=== PATIENT | male | born 1960 | race Caucasian/White ===

== ENCOUNTER 2023-06-06 21:11 | Inpatient (IN) | payer MEDICARE, OTHER ==
[2023-06-06] MEDS ORDERED: SODIUM CHLORIDE 0.9% 500 ML 500 ML IV ONE (21:24)
--- NOTE | 2023-06-06 21:36 | ED ---
General Adult HPI - General Chief complaint: Recheck/Abnormal Lab/Rx Stated complaint: Generalized Pain Time Seen by Provider: 06/06/23 21:13 Source: EMS Mode of arrival: EMS Limitations: altered mental status - History of Present Illness Initial comments: Sebastien is a 63-year-old gentleman who is brought to the ER today via EMS from senior care in which he lives. Caregivers there noted today that his legs and hands seemed to be cold and mottled which is atypical for him. This prompted them to request to be transferred to the hospital. Patient reports he has pain all over cannot isolate the pain. Denies chest pain. He's not been vomiting. - Related Data Home Medications Medication Instructions Recorded Confirmed Amoxic-Pot Clav 875-125Mg 1 tab PO Q12HR 06/06/23 06/06/23 [Augmentin 875-125] Aspirin EC [Ecotrin Low Dose] 81 mg PO DAILY 06/06/23 06/06/23 Atorvastatin [Lipitor] 40 mg PO HS 06/06/23 06/06/23 Budesonide [Pulmicort] 0.5 mg INHALATION RT-BID 06/06/23 06/06/23 Divalproex ER [Depakote ER] 250 mg PO DAILY 06/06/23 06/06/23 Folic Acid 1 mg PO DAILY 06/06/23 06/06/23 Ipratropium-Albuterol Nebulize 3 ml INHALATION RT-BID 06/06/23 06/06/23 [Duoneb 0.5 mg-3 mg/3 ml Soln] Lactose-Reduced Food [Ensure Plus] 1 can PO TID@0900,1300,2100 06/06/23 06/06/23 Lactulose 20 gm PO BID 06/06/23 06/06/23 Metoprolol Succinate (ER) [Toprol 25 mg PO DAILY 06/06/23 06/06/23 Xl] Midodrine [ProAmatine] 5 mg PO TID@0900,1300,1800 06/06/23 06/06/23 Mirtazapine 7.5 mg PO DAILY@1700 06/06/23 06/06/23 Multivitamins, Thera [Multivitamin 1 tab PO DAILY 06/06/23 06/06/23 (formulary)] Omeprazole [PriLOSEC] 20 mg PO DAILY 06/06/23 06/06/23 Thiamine [Vitamin B-1] 100 mg PO DAILY 06/06/23 06/06/23 Allergies Allergy/AdvReac Type Severity Reaction Status Date / Time No Known Allergies Allergy Verified 06/06/23 22:06 Review of Systems ROS Statement: Those systems with pertinent positive or pertinent negative responses have been documented in the HPI. ROS Other: All systems not noted in ROS Statement are negative. Past Medical History Past Medical History: Memory Impairment, Myocardial Infarction ([place]) General Exam - General Exam Comments Initial Comments: Physical Exam GENERAL: Chronically ill-appearing, appears older than stated age, no acute distress HENT: Normocephalic, Atraumatic. EYES: PERRL, EOMI PULMONARY: Unlabored respirations. 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 ABDOMEN: Non-distended No pulsatile masses SKIN: No rashes or bruising Coloration on the index fingers of the right hand consistent with tobacco abuse : Deferred NEUROLOGIC: Alert and oriented to self MUSCULOSKELETAL: Moving all extremities with no apparent injury Limitations: altered mental status Course Vital Signs 06/06/23 06/06/23 21:14 23:00 Temperature 98.2 F Pulse Rate 116 H 101 H Respiratory 16 18 Rate Blood Pressure 108/69 96/65 O2 Sat by Pulse 99 95 Oximetry EKG Findings - EKG Comments: EKG Findings:: EKG interpreted by me, EKG obtained at 2143 due to tachycardia EKG with a rate of 111 rhythm is sinus tachycardia, normal axis, normal intervals, TN 1:15 QRS 84 QTC 398 there are no acute ST elevations or depressions or evidence of acute ischemia or infarction. Medical Decision Making - Medical Decision Making Was pt. sent in by a medical professional or institution (, PA, LABORER/GRADE CHECK, urgent care, hospital, or senior care...) When possible be specific @ -Yes from long-term care facility Did you speak to anyone other than the patient for history (EMS, parent, family, police, friend...)? What history was obtained from this source @ -EMS Did you review nursing and triage notes (agree or disagree)? Why? @ -I reviewed and agree with nursing and triage notes Were old charts reviewed (outside hosp., previous admission, EMS record, old EKG, old radiological studies, urgent care reports/EKG's, senior care records)? Report findings @ -No old charts were reviewed Differential Diagnosis (chest pain, altered mental status, abdominal pain women, abdominal pain men, vaginal bleeding, weakness, fever, dyspnea, syncope, headache, dizziness, GI bleed, back pain, seizure, CVA, palpatations, mental health, musculoskeletal)? @ -Differential Altered Mental Status: Hypoglycemia, DKA, hypercapnia, ETOH, overdose, CO poisoning, trauma, myxedema coma, HTN encephalopathy, infection, encephalitis, psychosis, intercranial hemorrhage, hepatic encephalopathy, meningitis, CVA, this is not meant to be an all-inclusive list EKG interpreted by me (3pts min.). @ -As above X-rays interpreted by me (1pt min.). @ -No acute process CT interpreted by me (1pt min.). @ -None done U/S interpreted by me (1pt. min.). @ -None done What testing was considered but not performed or refused? (CT, X-rays, U/S, l abs)? Why? @ -None What meds were considered but not given or refused? Why? @ -None Did you discuss the management of the patient with other professionals (professionals i.e. , PA, LABORER/GRADE CHECK, lab, RT, psych nurse, social media intern, application architect, teacher, event security officer, catalytic case operator)? Give summary @ -No Was smoking cessation discussed for >3mins.? @ -No Was critical care preformed (if so, how long)? @ -No Were there social determinants of health that impacted care today? How? (Homelessness, low income, unemployed, alcoholism, drug addiction, transportation, low edu. Level, literacy, decrease access to med. care, halfway, rehab)? @ -Previous alcoholism Was there de-escalation of care discussed even if they declined (Discuss DNR or withdrawal of care, Hospice)? DNR status @ -No What co-morbidities impacted this encounter? (DM, HTN, Smoking, COPD, CAD, Cancer, CVA, ARF, Chemo, Hep., AIDS, mental health diagnosis, sleep apnea, morbid obesity)? @ -And dementia Was patient admitted / discharged? Hospital course, mention meds given and route, prescriptions, significant lab abnormalities, going to OR and other pertinent info. @ -Admit Patient was seen and evaluated. Patient does appear to have mottled extremities. Septic workup was initiated patient has leukocytosis however no infectious source was identified. Patient is noted to be sleeping comfortably after IV fluids. He did receive a dose of Rocephin. We will place the patient in observation for repeat labs in the morning to ensure that his leukocytosis is resolving he has no signs of worsening indolent infection Undiagnosed new problem with uncertain prognosis? @ -No Drug Therapy requiring intensive monitoring for toxicity (Heparin, Nitro, Insulin, Cardizem)? @ -No Were any procedures done? @ -No Diagnosis/symptom? @ -Dehydration, leukocytosis Acute, or Chronic, or Acute on Chronic? @ -default Uncomplicated (without systemic symptoms) or Complicated (systemic symptoms)? @ -default Side effects of treatment? @ -No Exacerbation, Progression, or Severe Exacerbation? @ -No Poses a threat to life or bodily function? How? (Chest pain, [place], [place], pneumonia, PE, COPD, DKA, ARF, appy, cholecystitis, CVA, Diverticulitis, Homicidal, Suicidal, threat to staff... and all critical care pts) @ -No - Lab Data Result diagrams: 06/06/23 21:52 06/06/23 21:52 Lab Results 06/06/23 06/06/23 06/06/23 Range/Units 21:52 21:52 21:52 WBC 19.9 H (3.8-10.6) k/uL RBC 4.35 (4.30-5.90) m/uL Hgb 12.9 L (13.0-17.5) gm/dL Hct 39.9 (39.0-53.0) % MCV 91.7 (80.0-100.0) fL MCH 29.6 (25.0-35.0) pg MCHC 32.3 (31.0-37.0) g/dL RDW 15.2 (11.5-15.5) % Plt Count 317 (150-450) k/uL MPV 7.2 Neutrophils % 89 % Lymphocytes % 6 % Monocytes % 3 % Eosinophils % 2 % Basophils % 0 % Neutrophils # 17.7 H (1.3-7.7) k/uL Lymphocytes # 1.1 (1.0-4.8) k/uL Monocytes # 0.6 (0-1.0) k/uL Eosinophils # 0.3 (0-0.7) k/uL Basophils # 0.0 (0-0.2) k/uL PT (10.0-12.5) sec INR (<1.2) APTT (22.0-30.0) sec Sodium 130 L (137-145) mmol/L Potassium 4.1 (3.5-5.1) mmol/L Chloride 98 (98-107) mmol/L Carbon Dioxide 21 L (22-30) mmol/L Anion Gap 11 mmol/L BUN 19 (9-20) mg/dL Creatinine 0.57 L (0.66-1.25) mg/dL Est GFR (CKD-EPI)AfAm >90 (>60 ml/min/1.73 sqM) Est GFR (CKD-EPI)NonAf >90 (>60 ml/min/1.73 sqM) Glucose 107 H (74-99) mg/dL Lactic Ac Sepsis Rflx Plasma Lactic Acid Shane (0.7-2.0) mmol/L Calcium 7.8 L (8.4-10.2) mg/dL Total Bilirubin 0.4 (0.2-1.3) mg/dL AST 48 (17-59) U/L ALT 16 (4-49) U/L Alkaline Phosphatase 223 H (38-126) U/L Creatine Kinase 110 (55-170) U/L Troponin I <0.012 (0.000-0.034) ng/mL Total Protein 5.3 L (6.3-8.2) g/dL Albumin 2.5 L (3.5-5.0) g/dL Urine Color Urine Appearance (Clear) Urine pH (5.0-8.0) Ur Specific Spencer (1.001-1.035) Urine Protein (Negative) Urine Glucose (UA) (Negative) Urine Ketones (Negative) Urine Blood (Negative) Urine Nitrite (Negative) Urine Bilirubin (Negative) Urine Urobilinogen (<2.0) mg/dL Ur Leukocyte Esterase (Negative) Urine RBC (0-5) /hpf Urine WBC (0-5) /hpf Ur Squamous Epith Cells (0-4) /hpf Hyaline Casts (0-2) /lpf Urine Mucus (None) /hpf Urine Opiates Screen (NotDetected) Ur Oxycodone Screen (NotDetected) Urine Methadone Screen (NotDetected) Ur Propoxyphene Screen (NotDetected) Ur Barbiturates Screen (NotDetected) U Tricyclic Antidepress (NotDetected) Ur Phencyclidine Scrn (NotDetected) Ur Amphetamines Screen (NotDetected) U Methamphetamines Scrn (NotDetected) U Benzodiazepines Scrn (NotDetected) Urine Cocaine Screen (NotDetected) U Marijuana (THC) Screen (NotDetected) 06/06/23 06/06/23 06/06/23 Range/Units 21:52 22:42 23:40 WBC (3.8-10.6) k/uL RBC (4.30-5.90) m/uL Hgb (13.0-17.5) gm/dL Hct (39.0-53.0) % MCV (80.0-100.0) fL MCH (25.0-35.0) pg MCHC (31.0-37.0) g/dL RDW (11.5-15.5) % Plt Count (150-450) k/uL MPV Neutrophils % % Lymphocytes % % Monocytes % % Eosinophils % % Basophils % % Neutrophils # (1.3-7.7) k/uL Lymphocytes # (1.0-4.8) k/uL Monocytes # (0-1.0) k/uL Eosinophils # (0-0.7) k/uL Basophils # (0-0.2) k/uL PT 17.9 H (10.0-12.5) sec INR 1.8 H (<1.2) APTT 30.3 H (22.0-30.0) sec Sodium (137-145) mmol/L Potassium (3.5-5.1) mmol/L Chloride (98-107) mmol/L Carbon Dioxide (22-30) mmol/L Anion Gap mmol/L BUN (9-20) mg/dL Creatinine (0.66-1.25) mg/dL Est GFR (CKD-EPI)AfAm (>60 ml/min/1.73 sqM) Est GFR (CKD-EPI)NonAf (>60 ml/min/1.73 sqM) Glucose (74-99) mg/dL Lactic Ac Sepsis Rflx Y Plasma Lactic Acid Shane 2.4 H* (0.7-2.0) mmol/L Calcium (8.4-10.2) mg/dL Total Bilirubin (0.2-1.3) mg/dL AST (17-59) U/L ALT (4-49) U/L Alkaline Phosphatase (38-126) U/L Creatine Kinase (55-170) U/L Troponin I (0.000-0.034) ng/mL Total Protein (6.3-8.2) g/dL Albumin (3.5-5.0) g/dL Urine Color Urine Appearance (Clear) Urine pH (5.0-8.0) Ur Specific Spencer (1.001-1.035) Urine Protein (Negative) Urine Glucose (UA) (Negative) Urine Ketones (Negative) Urine Blood (Negative) Urine Nitrite (Negative) Urine Bilirubin (Negative) Urine Urobilinogen (<2.0) mg/dL Ur Leukocyte Esterase (Negative) Urine RBC (0-5) /hpf Urine WBC (0-5) /hpf Ur Squamous Epith Cells (0-4) /hpf Hyaline Casts (0-2) /lpf Urine Mucus (None) /hpf Urine Opiates Screen (NotDetected) Ur Oxycodone Screen (NotDetected) Urine Methadone Screen (NotDetected) Ur Propoxyphene Screen (NotDetected) Ur Barbiturates Screen (NotDetected) U Tricyclic Antidepress (NotDetected) Ur Phencyclidine Scrn (NotDetected) Ur Amphetamines Screen (NotDetected) U Methamphetamines Scrn (NotDetected) U Benzodiazepines Scrn (NotDetected) Urine Cocaine Screen (NotDetected) U Marijuana (THC) Screen (NotDetected) 06/07/23 06/07/23 Range/Units 02:06 02:06 WBC (3.8-10.6) k/uL RBC (4.30-5.90) m/uL Hgb (13.0-17.5) gm/dL Hct (39.0-53.0) % MCV (80.0-100.0) fL MCH (25.0-35.0) pg MCHC (31.0-37.0) g/dL RDW (11.5-15.5) % Plt Count (150-450) k/uL MPV Neutrophils % % Lymphocytes % % Monocytes % % Eosinophils % % Basophils % % Neutrophils # (1.3-7.7) k/uL Lymphocytes # (1.0-4.8) k/uL Monocytes # (0-1.0) k/uL Eosinophils # (0-0.7) k/uL Basophils # (0-0.2) k/uL PT (10.0-12.5) sec INR (<1.2) APTT (22.0-30.0) sec Sodium (137-145) mmol/L Potassium (3.5-5.1) mmol/L Chloride (98-107) mmol/L Carbon Dioxide (22-30) mmol/L Anion Gap mmol/L BUN (9-20) mg/dL Creatinine (0.66-1.25) mg/dL Est GFR (CKD-EPI)AfAm (>60 ml/min/1.73 sqM) Est GFR (CKD-EPI)NonAf (>60 ml/min/1.73 sqM) Glucose (74-99) mg/dL Lactic Ac Sepsis Rflx Plasma Lactic Acid Shane (0.7-2.0) mmol/L Calcium (8.4-10.2) mg/dL Total Bilirubin (0.2-1.3) mg/dL AST (17-59) U/L ALT (4-49) U/L Alkaline Phosphatase (38-126) U/L Creatine Kinase (55-170) U/L Troponin I (0.000-0.034) ng/mL Total Protein (6.3-8.2) g/dL Albumin (3.5-5.0) g/dL Urine Color Light Red Urine Appearance Clear (Clear) Urine pH 6.0 (5.0-8.0) Ur Specific Spencer 1.025 (1.001-1.035) Urine Protein Trace H (Negative) Urine Glucose (UA) Negative (Negative) Urine Ketones Trace H (Negative) Urine Blood Negative (Negative) Urine Nitrite Negative (Negative) Urine Bilirubin Negative (Negative) Urine Urobilinogen 2.0 (<2.0) mg/dL Ur Leukocyte Esterase Trace H (Negative) Urine RBC 1 (0-5) /hpf Urine WBC 2 (0-5) /hpf Ur Squamous Epith Cells <1 (0-4) /hpf Hyaline Casts 50 H (0-2) /lpf Urine Mucus Occasional H (None) /hpf Urine Opiates Screen Not Detected (NotDetected) Ur Oxycodone Screen Not Detected (NotDetected) Urine Methadone Screen Not Detected (NotDetected) Ur Propoxyphene Screen Not Detected (NotDetected) Ur Barbiturates Screen Not Detected (NotDetected) U Tricyclic Antidepress Not Detected (NotDetected) Ur Phencyclidine Scrn Not Detected (NotDetected) Ur Amphetamines Screen Not Detected (NotDetected) U Methamphetamines Scrn Not Detected (NotDetected) U Benzodiazepines Scrn Not Detected (NotDetected) Urine Cocaine Screen Not Detected (NotDetected) U Marijuana (THC) Screen Not Detected (NotDetected) Disposition Clinical Impression: Leukocytosis, Dehydration Disposition: ADMITTED IP TO THIS [facility] Condition: Poor Referrals: Sandra Graves MD [Primary Care Provider] - 1-2 days
[2023-06-06 22:17] LABS: Basophils % (A) 0 %; Eosinophils # (A) 0.3 k/uL (0-0.7); Eosinophils % (A) 2 %; HCT 39.9 % (39.0-53.0); HGB 12.9 gm/dL (13.0-17.5); Lymphocytes # (A) 1.1 k/uL (1.0-4.8); Lymphocytes % (A) 6 %; MCH 29.6 pg (25.0-35.0); MCHC 32.3 g/dL (31.0-37.0); MCV 91.7 fL (80.0-100.0); Mean Platelet Volume 7.2; Monocytes # (A) 0.6 k/uL (0-1.0); Monocytes % (A) 3 %; Neutrophils # (A) 17.7 k/uL (1.3-7.7); Neutrophils % (A) 89 %; Platelet Count 317 k/uL (150-450); RBC 4.35 m/uL (4.30-5.90); RDW 15.2 % (11.5-15.5); WBC 19.9 k/uL (3.8-10.6)
[2023-06-06 22:31] LABS: ALT 16 U/L (4-49); AST 48 U/L (17-59); African American GFR (CKD) >90 (>60 ml/min/1.73 sqM); Albumin 2.5 g/dL (3.5-5.0); Alkaline Phosphatase 223 U/L (38-126); Anion Gap 11 mmol/L; Blood Urea Nitrogen 19 mg/dL (9-20); Calcium 7.8 mg/dL (8.4-10.2); Carbon Dioxide 21 mmol/L (22-30); Chloride 98 mmol/L (98-107); Creatine Kinase 110 U/L (55-170); Glucose 107 mg/dL (74-99); Non-African American GFR(CKD) >90 (>60 ml/min/1.73 sqM); Potassium 4.1 mmol/L (3.5-5.1); Sodium 130 mmol/L (137-145); Total Bilirubin 0.4 mg/dL (0.2-1.3); Total Protein 5.3 g/dL (6.3-8.2)
[2023-06-06 23:31] LABS: INR 1.8 (<1.2); Partial Thromboplastin Time 30.3 sec (22.0-30.0); Prothrombin Time 17.9 sec (10.0-12.5)
[2023-06-07] MEDS ORDERED: cefTRIAXone IN SWFI 1,000 MG/10 ML SYRINGE IVP STA (00:05)
[2023-06-07] MEDS: SODIUM CHLORIDE 0.9% 1,000 ML IV SCH ×4 (00:32→22:34)
--- NOTE | 2023-06-07 01:23 | XR ---
EXAM: XR Chest, 2 Views CLINICAL HISTORY: ITS.REASON XR Reason: altered mental status TECHNIQUE: Frontal and lateral views of the chest. COMPARISON: No relevant prior studies available. FINDINGS: Lungs: Mild pulmonary vascular congestion. Pleural space: Unremarkable. No pneumothorax. Heart: Unremarkable. No cardiomegaly. Mediastinum: Unremarkable. Bones/joints: Unremarkable. Vasculature: Calcified aorta. IMPRESSION: Mild pulmonary vascular congestion.
[2023-06-07 02:29] LABS: Appearance,Urine Clear (Clear); Bilirubin,Urine Negative (Negative); Blood,Urine Negative (Negative); Color,Urine Light Red; Glucose,Urine (UA) Negative (Negative); Hyaline Casts,Urine 50 /lpf (0-2); Ketones,Urine Trace (Negative); Leukocyte Esterase,Urine Trace (Negative); Mucus,Urine Occasional /hpf; Nitrite,Urine Negative (Negative); Protein,Urine Trace (Negative); RBC,Urine 1 /hpf (0-5); Specific Gravity,Urine 1.025 (1.001-1.035); Squamous Epithelial Cell,Urine <1 /hpf (0-4); WBC,Urine 2 /hpf (0-5)
[2023-06-07 02:42] LABS: Amphetamine Screen,Urine Not Detected (NotDetected); Barbiturate Screen,Urine Not Detected (NotDetected); Benzodiazepines Screen,Urine Not Detected (NotDetected); Cocaine Screen,Urine Not Detected (NotDetected); Methadone Screen, Urine Not Detected (NotDetected); Opiate Screen,Urine Not Detected (NotDetected); Oxycodone Screen, Urine Not Detected (NotDetected); Phencyclidine Screen,Urine Not Detected (NotDetected); Tricyclic Antidepressant,Urine Not Detected (NotDetected); Urn Cannabinoid Scrn Not Detected (NotDetected)
[2023-06-07] MEDS ORDERED: NALOXONE 0.4 MG/ML 1 ML VIAL IV PRN (03:31)
[2023-06-07 07:48] LABS: Basophils % (A) 0 %; Eosinophils # (A) 0.5 k/uL (0-0.7); Eosinophils % (A) 3 %; HCT 29.3 % (39.0-53.0); Hypochromasia Slight; Lymphocytes # (A) 1.1 k/uL (1.0-4.8); Lymphocytes % (A) 7 %; MCH 29.2 pg (25.0-35.0); MCHC 31.4 g/dL (31.0-37.0); MCV 93.2 fL (80.0-100.0); Mean Platelet Volume 7.6; Monocytes # (A) 1.7 k/uL (0-1.0); Monocytes % (A) 10 %; Neutrophils # (A) 13.6 k/uL (1.3-7.7); Neutrophils % (A) 80 %; Platelet Count 360 k/uL (150-450); RBC 3.14 m/uL (4.30-5.90); RDW 15.2 % (11.5-15.5)
[2023-06-07 07:51] LABS: HGB 9.2 gm/dL (13.0-17.5)
[2023-06-07 07:53] LABS: ALT 14 U/L (4-49); AST 44 U/L (17-59); African American GFR (CKD) >90 (>60 ml/min/1.73 sqM); Albumin 1.9 g/dL (3.5-5.0); Alkaline Phosphatase 134 U/L (38-126); Anion Gap 4 mmol/L; Blood Urea Nitrogen 13 mg/dL (9-20); Calcium 6.9 mg/dL (8.4-10.2); Carbon Dioxide 24 mmol/L (22-30); Chloride 104 mmol/L (98-107); Glucose 87 mg/dL (74-99); Non-African American GFR(CKD) >90 (>60 ml/min/1.73 sqM); Potassium 3.5 mmol/L (3.5-5.1); Sodium 132 mmol/L (137-145); Total Bilirubin 0.4 mg/dL (0.2-1.3); Total Protein 4.4 g/dL (6.3-8.2)
[2023-06-07] MEDS ORDERED: ALBUMIN HUMAN 5% 500 ML in EMPTY BAG 1 BAG IVPB ONE (10:26)
[2023-06-07] MEDS: MIDODRINE 5 MG TAB PO SCH ×2 (12:30→17:14)
[2023-06-07] MEDS ORDERED: NON FORMULARY DRUG (Lactose-Reduced Food [Ensure Plus] 237 ML Ml) PO SCH (13:00)
[2023-06-07] MEDS ORDERED: IOPAMIDOL CONTRAST (ORAL USE) VIAL PO PRN (14:15)
[2023-06-07] MEDS: PIPERACILLIN-TAZOBACTAM 3.375 GM in SODIUM CHLORIDE 0.9% 100 ML IVPB SCH ×2 (15:13→23:00)
[2023-06-07] MEDS: MIRTAZAPINE 15 MG TAB PO SCH (17:14)
--- NOTE | 2023-06-07 18:43 | P.HPIM ---
History of Present Illness H&P Date: 06/07/23 Chief Complaint: Possible sepsis 63-year-old gentleman who is brought to the ER today via EMS from [place] [facility] in [facility] lives. Caregivers there noted today that his legs and hands seemed to be cold and mottled which is atypical for him. This prompted them to request to be transferred to the hospital. Patient reports he has pain all over cannot isolate the pain. Denies chest pain. He's not been vomiting. Septic workup was initiated patient has leukocytosis however no infectious source was identified. Patient is noted to be sleeping comfortably after IV fluids. He did receive a dose of Rocephin. We will place the patient in observation for repeat labs in the morning to ensure that his leukocytosis is resolving and ID evaluation Blood work completed in ED reveals a daily basis of 19.9, hemoglobin of 12.8 and platelet count of 317, sodium 1:30, potassium 4.1, BUN/creatinine of 19/0.57 and blood glucose of 107, lactic acid elevated at 2.4 Review of Systems REVIEW OF SYSTEMS: CONSTITUTIONAL: No fever, no malaise, no fatigue. HEENT: No recent visual problems or hearing problems. Denied any sore throat. CARDIOVASCULAR: No chest pain, orthopnea, PND, no palpitations, no syncope. PULMONARY: No shortness of breath, no cough, no hemoptysis. GASTROINTESTINAL: No diarrhea, no nausea, no vomiting, no abdominal pain. NEUROLOGICAL: No headaches, no weakness, no numbness. HEMATOLOGICAL: Denies any bleeding or petechiae. GENITOURINARY: Denies any burning micturition, frequency, or urgency. MUSCULOSKELETAL/RHEUMATOLOGICAL: Denies any joint pain, swelling, or any muscle pain. ENDOCRINE: Denies any polyuria or polydipsia. The rest of the 14-point review of systems is negative. Past Medical History Past Medical History: Memory Impairment, Myocardial Infarction ([place]) Medications and Allergies Home Medications Medication Instructions Recorded Confirmed Type Amoxic-Pot Clav 875-125Mg 1 tab PO Q12HR 06/06/23 06/06/23 History [Augmentin 875-125] Aspirin EC [Ecotrin Low Dose] 81 mg PO DAILY 06/06/23 06/06/23 History Atorvastatin [Lipitor] 40 mg PO HS 06/06/23 06/06/23 History Budesonide [Pulmicort] 0.5 mg INHALATION RT-BID 06/06/23 06/06/23 History Divalproex ER [Depakote ER] 250 mg PO DAILY 06/06/23 06/06/23 History Folic Acid 1 mg PO DAILY 06/06/23 06/06/23 History Ipratropium-Albuterol Nebulize 3 ml INHALATION RT-BID 06/06/23 06/06/23 History [Duoneb 0.5 mg-3 mg/3 ml Soln] Lactose-Reduced Food [Ensure Plus] 1 can PO TID@0900,1300,2100 06/06/23 06/06/23 History Lactulose 20 gm PO BID 06/06/23 06/06/23 History Metoprolol Succinate (ER) [Toprol 25 mg PO DAILY 06/06/23 06/06/23 History Xl] Midodrine [ProAmatine] 5 mg PO TID@0900,1300,1800 06/06/23 06/06/23 History Mirtazapine 7.5 mg PO DAILY@1700 06/06/23 06/06/23 History Multivitamins, Thera [Multivitamin 1 tab PO DAILY 06/06/23 06/06/23 History (formulary)] Omeprazole [PriLOSEC] 20 mg PO DAILY 06/06/23 06/06/23 History Thiamine [Vitamin B-1] 100 mg PO DAILY 06/06/23 06/06/23 History Allergies Allergy/AdvReac Type Severity Reaction Status Date / Time No Known Allergies Allergy Verified 06/06/23 22:06 Physical Exam Vitals: Vital Signs Temp Pulse Resp BP Pulse Ox 06/07/23 09:48 98 18 103/57 96 06/07/23 08:25 97.0 F L 98 18 99/66 99 06/07/23 07:20 99 18 107/70 06/07/23 03:00 96 20 96/65 95 06/06/23 23:00 101 H 18 96/65 95 06/06/23 21:14 98.2 F 116 H 16 108/69 99 Intake and Output 06/06/23 06/07/23 06/07/23 22:59 06:59 14:59 Other: Weight 40.823 kg PHYSICAL EXAMINATION: GENERAL: The patient is alert and oriented x3, not in any acute distress. Well developed, well nourished. HEENT: Pupils are round and equally reacting to light. EOMI. No scleral icterus. No conjunctival pallor. Normocephalic, atraumatic. No pharyngeal erythema. No thyromegaly. CARDIOVASCULAR: S1 and S2 present. No murmurs, rubs, or gallops. PULMONARY: Chest is clear to auscultation, no wheezing or crackles. ABDOMEN: Soft, nontender, nondistended, normoactive bowel sounds. No palpable o rganomegaly. MUSCULOSKELETAL: No joint swelling or deformity. EXTREMITIES: No cyanosis, clubbing, or pedal edema. NEUROLOGICAL: Gross neurological examination did not reveal any focal deficits. SKIN: No rashes. Results CBC & Chem 7: 06/07/23 07:20 06/07/23 07:20 Labs: Abnormal Lab Results - Last 24 Hours (Table) 06/06/23 06/06/23 06/06/23 Range/Units 21:52 21:52 21:52 WBC 19.9 H (3.8-10.6) k/uL RBC (4.30-5.90) m/uL Hgb 12.9 L (13.0-17.5) gm/dL Hct (39.0-53.0) % Neutrophils # 17.7 H (1.3-7.7) k/uL Monocytes # (0-1.0) k/uL PT (10.0-12.5) sec INR (<1.2) APTT (22.0-30.0) sec Sodium 130 L (137-145) mmol/L Carbon Dioxide 21 L (22-30) mmol/L Creatinine 0.57 L (0.66-1.25) mg/dL Glucose 107 H (74-99) mg/dL Plasma Lactic Acid Shane 2.4 H* (0.7-2.0) mmol/L Calcium 7.8 L (8.4-10.2) mg/dL Alkaline Phosphatase 223 H (38-126) U/L Total Protein 5.3 L (6.3-8.2) g/dL Albumin 2.5 L (3.5-5.0) g/dL Urine Protein (Negative) Urine Ketones (Negative) Ur Leukocyte Esterase (Negative) Hyaline Casts (0-2) /lpf Urine Mucus (None) /hpf 10/14/23 10/15/23 10/15/23 Range/Units 22:42 02:06 07:20 WBC 17.0 H (3.8-10.6) k/uL RBC 3.14 L (4.30-5.90) m/uL Hgb 9.2 L D (13.0-17.5) gm/dL Hct 29.3 L (39.0-53.0) % Neutrophils # 13.6 H (1.3-7.7) k/uL Monocytes # 1.7 H (0-1.0) k/uL PT 17.9 H (10.0-12.5) sec INR 1.8 H (<1.2) APTT 30.3 H (22.0-30.0) sec Sodium (137-145) mmol/L Carbon Dioxide (22-30) mmol/L Creatinine (0.66-1.25) mg/dL Glucose (74-99) mg/dL Plasma Lactic Acid Shane (0.7-2.0) mmol/L Calcium (8.4-10.2) mg/dL Alkaline Phosphatase (38-126) U/L Total Protein (6.3-8.2) g/dL Albumin (3.5-5.0) g/dL Urine Protein Trace H (Negative) Urine Ketones Trace H (Negative) Ur Leukocyte Esterase Trace H (Negative) Hyaline Casts 50 H (0-2) /lpf Urine Mucus Occasional H (None) /hpf 06/07/23 Range/Units 07:20 WBC (3.8-10.6) k/uL RBC (4.30-5.90) m/uL Hgb (13.0-17.5) gm/dL Hct (39.0-53.0) % Neutrophils # (1.3-7.7) k/uL Monocytes # (0-1.0) k/uL PT (10.0-12.5) sec INR (<1.2) APTT (22.0-30.0) sec Sodium 132 L (137-145) mmol/L Carbon Dioxide (22-30) mmol/L Creatinine 0.30 L (0.66-1.25) mg/dL Glucose (74-99) mg/dL Plasma Lactic Acid Shane (0.7-2.0) mmol/L Calcium 6.9 L (8.4-10.2) mg/dL Alkaline Phosphatase 134 H (38-126) U/L Total Protein 4.4 L (6.3-8.2) g/dL Albumin 1.9 L (3.5-5.0) g/dL Urine Protein (Negative) Urine Ketones (Negative) Ur Leukocyte Esterase (Negative) Hyaline Casts (0-2) /lpf Urine Mucus (None) /hpf Assessment and Plan Assessment: 1. Leukocytosis with elevated lactic acid level/mottling both lower extremities - White blood count is elevated at 19.9 with lactic acid 2.4; no skin mottling was appreciated in ED - Patient has been placed on IV Rocephin for indeterminate source of infection - We will monitor CBC, CRP and pro-calcitonin ID is consulted 2. Hyponatremia; IV fluid hydration with normal saline at a rate of 100 mL an hour; we will monitor electrolytes closely and supplement as needed 3. Hyperlipidemia; Lipitor 40 mg by mouth daily at bedtime 4. Hypertension; metoprolol 25 mg daily 5. COPD/asthma; Not in exacerbation; continue with home inhaler therapy DVT prophylaxis; SCDs; patient has an INR of 1.6 CODE STATUS; Full code
--- NOTE | 2023-06-07 19:05 | P.CONS ---
History of Present Illness - Reason for Consult Consult date: 06/07/23 - History of Present Illness Patient is a 63-year-old male with a past medical history significant for [place] and memory impairment patient is a local [facility] resident patient has been sent to the ER as the patient was noticed to be cold and mostly at which is atypical for him patient complaining of pain all over on presentation to the hospital patient was afebrile and no fever has been noted subsequently patient did have white count of 19.9 with a left shift creatinine 0.57 lactic acid was 2.4 remains in the normal urine has been negative urine drug screen was negative patient did have a chest x-ray mild pulmonary vascular congestion patient was admitted to hospital infectious was consulted regarding elevated white count patient is currently complaining of cramps to the lower abdominal area patient did have some nausea but no vomiting denies any diarrhea or constipation denies any chest pain shortness of breath or cough Past Medical History Past Medical History: Memory Impairment, Myocardial Infarction ([place]) Medications and Allergies Home Medications Medication Instructions Recorded Confirmed Type Amoxic-Pot Clav 875-125Mg 1 tab PO Q12HR 06/06/23 06/06/23 History [Augmentin 875-125] Aspirin EC [Ecotrin Low Dose] 81 mg PO DAILY 06/06/23 06/06/23 History Atorvastatin [Lipitor] 40 mg PO HS 06/06/23 06/06/23 History Budesonide [Pulmicort] 0.5 mg INHALATION RT-BID 06/06/23 06/06/23 History Divalproex ER [Depakote ER] 250 mg PO DAILY 06/06/23 06/06/23 History Folic Acid 1 mg PO DAILY 06/06/23 06/06/23 History Ipratropium-Albuterol Nebulize 3 ml INHALATION RT-BID 06/06/23 06/06/23 History [Duoneb 0.5 mg-3 mg/3 ml Soln] Lactose-Reduced Food [Ensure Plus] 1 can PO TID@0900,1300,2100 06/06/23 06/06/23 History Lactulose 20 gm PO BID 06/06/23 06/06/23 History Metoprolol Succinate (ER) [Toprol 25 mg PO DAILY 06/06/23 06/06/23 History Xl] Midodrine [ProAmatine] 5 mg PO TID@0900,1300,1800 06/06/23 06/06/23 History Mirtazapine 7.5 mg PO DAILY@1700 06/06/23 06/06/23 History Multivitamins, Thera [Multivitamin 1 tab PO DAILY 06/06/23 06/06/23 History (formulary)] Omeprazole [PriLOSEC] 20 mg PO DAILY 06/06/23 06/06/23 History Thiamine [Vitamin B-1] 100 mg PO DAILY 06/06/23 06/06/23 History Allergies Allergy/AdvReac Type Severity Reaction Status Date / Time No Known Allergies Allergy Verified 06/06/23 22:06 Physical Exam Vitals: Vital Signs Temp Pulse Resp BP Pulse Ox 06/07/23 14:08 109 H 18 130/74 96 06/07/23 13:21 98 18 120/95 97 06/07/23 12:00 99 18 98/59 96 06/07/23 11:00 98 18 98/61 97 06/07/23 09:48 98 18 103/57 96 06/07/23 08:25 97.0 F L 98 18 99/66 99 06/07/23 07:20 99 18 107/70 06/07/23 03:00 96 20 96/65 95 06/06/23 23:00 101 H 18 96/65 95 06/06/23 21:14 98.2 F 116 H 16 108/69 99 Intake and Output 06/06/23 06/07/23 06/07/23 22:59 06:59 14:59 Other: Weight 40.823 kg Results CBC & Chem 7: 06/07/23 07:20 06/07/23 07:20 Labs: Abnormal Lab Results - Last 24 Hours (Table) 06/06/23 06/06/23 06/06/23 Range/Units 21:52 21:52 21:52 WBC 19.9 H (3.8-10.6) k/uL RBC (4.30-5.90) m/uL Hgb 12.9 L (13.0-17.5) gm/dL Hct (39.0-53.0) % Neutrophils # 17.7 H (1.3-7.7) k/uL Monocytes # (0-1.0) k/uL PT (10.0-12.5) sec INR (<1.2) APTT (22.0-30.0) sec Sodium 130 L (137-145) mmol/L Carbon Dioxide 21 L (22-30) mmol/L Creatinine 0.57 L (0.66-1.25) mg/dL Glucose 107 H (74-99) mg/dL Plasma Lactic Acid Shane 2.4 H* (0.7-2.0) mmol/L Calcium 7.8 L (8.4-10.2) mg/dL Alkaline Phosphatase 223 H (38-126) U/L C-Reactive Protein (<1.0) mg/dL Total Protein 5.3 L (6.3-8.2) g/dL Albumin 2.5 L (3.5-5.0) g/dL Urine Protein (Negative) Urine Ketones (Negative) Ur Leukocyte Esterase (Negative) Hyaline Casts (0-2) /lpf Urine Mucus (None) /hpf 06/06/23 06/07/23 06/07/23 Range/Units 22:42 02:06 07:20 WBC 17.0 H (3.8-10.6) k/uL RBC 3.14 L (4.30-5.90) m/uL Hgb 9.2 L D (13.0-17.5) gm/dL Hct 29.3 L (39.0-53.0) % Neutrophils # 13.6 H (1.3-7.7) k/uL Monocytes # 1.7 H (0-1.0) k/uL PT 17.9 H (10.0-12.5) sec INR 1.8 H (<1.2) APTT 30.3 H (22.0-30.0) sec Sodium (137-145) mmol/L Carbon Dioxide (22-30) mmol/L Creatinine (0.66-1.25) mg/dL Glucose (74-99) mg/dL Plasma Lactic Acid Shane (0.7-2.0) mmol/L Calcium (8.4-10.2) mg/dL Alkaline Phosphatase (38-126) U/L C-Reactive Protein (<1.0) mg/dL Total Protein (6.3-8.2) g/dL Albumin (3.5-5.0) g/dL Urine Protein Trace H (Negative) Urine Ketones Trace H (Negative) Ur Leukocyte Esterase Trace H (Negative) Hyaline Casts 50 H (0-2) /lpf Urine Mucus Occasional H (None) /hpf 06/07/23 06/07/23 Range/Units 07:20 07:20 WBC (3.8-10.6) k/uL RBC (4.30-5.90) m/uL Hgb (13.0-17.5) gm/dL Hct (39.0-53.0) % Neutrophils # (1.3-7.7) k/uL Monocytes # (0-1.0) k/uL PT (10.0-12.5) sec INR (<1.2) APTT (22.0-30.0) sec Sodium 132 L (137-145) mmol/L Carbon Dioxide (22-30) mmol/L Creatinine 0.30 L (0.66-1.25) mg/dL Glucose (74-99) mg/dL Plasma Lactic Acid Shane (0.7-2.0) mmol/L Calcium 6.9 L (8.4-10.2) mg/dL Alkaline Phosphatase 134 H (38-126) U/L C-Reactive Protein 7.0 H (<1.0) mg/dL Total Protein 4.4 L (6.3-8.2) g/dL Albumin 1.9 L (3.5-5.0) g/dL Urine Protein (Negative) Urine Ketones (Negative) Ur Leukocyte Esterase (Negative) Hyaline Casts (0-2) /lpf Urine Mucus (None) /hpf Assessment and Plan Plan: 1patient with a leukocytosis in this patient who is [facility] resident sent to the ER for nonspecific symptoms patient complaining of some cramps in lower abdominal area the patient was noted to be slightly tender on clinic examination also have elevated lactic acid likely abdominal source 2-we will obtain CT of abdominal pelvis with contrast 3-empirically add Zosyn 3.375 g every 8 hours while waiting for the work-up to be completed We will follow on clinical condition and cultures to further adjust medication if needed Thank you for this consultation we will follow the patient along with you Dictation was produced using [employer] software. please excuse any grammatical, word or spelling errors. Time with Patient: Greater than 30
--- NOTE | 2023-06-07 20:12 | CT ---
EXAMINATION TYPE: CT abdomen pelvis w con CT DLP: 563.5 mGycm, Automated exposure control for dose reduction was used. DATE OF EXAM: 06/07/2023 3:05 PM COMPARISON: None. CLINICAL INDICATION:Male, 63 years old with history of abdominal tenderness; abdominal tenderness TECHNIQUE: Axial CT of the abdomen and pelvis. Sagittal and coronal reformats were created on a [employer] workstation. Contrast used:100 cc mL of Isovue 300 with IV Contrast, (none if empty) Oral contrast used: without Oral Contrast (none if empty) FINDINGS: LOWER CHEST: Small left and tiny right pleural effusions. Adjacent pulmonary opacities, likely atelec tasis. Heart size upper normal. Coronary arterial calcifications. ABDOMEN LIVER: Unremarkable GALLBLADDER AND BILE DUCTS: Gallbladder appears contracted, with mild wall thickening and/or perichol ecystic fluid. Low-density gallstones are not excluded. No significant biliary ductal dilatation. PANCREAS: Unremarkable. SPLEEN: Splenic cleft otherwise unremarkable. ADRENAL GLANDS: Unremarkable. KIDNEYS AND URETERS: Kidneys enhance symmetrically. There is no evidence of hydronephrosis. Tiny bila teral renal hypodensities are too small to characterize but could relate to cysts. PELVIS BLADDER: Mildly distended otherwise unremarkable REPRODUCTIVE: Unremarkable. ABDOMEN & PELVIS STOMACH AND BOWEL: Stomach is nondistended. There appears to be mild duodenal wall thickening with il l-defined margins especially in its distal transverse portion. No evidence of bowel obstruction. Appe ndix is not visualized. Small to moderate amount of stool throughout the colon without focal abnormal ity seen. PERITONEUM/RETROPERITONEUM: No evidence of pneumoperitoneum or free fluid. VASCULATURE: Mixed atherosclerotic disease of the aorta and major branches. No evidence of AAA. Moderate narrowing of the proximal celiac artery, mild narrowing of the proximal SMA and renal arteries. Diffuse diseas e throughout the bilateral iliac arterial trees, with multifocal approximately 50% stenoses. In the d istal left common iliac there is a 2.1 cm aneurysm. MUSCULOSKELETAL: Several healed/healing posterior rib fractures bilaterally. No acute osseous abnorma lity is seen. Moderate degenerative changes throughout the visualized spine. LYMPH NODES: No gross evidence for lymphadenopathy. SOFT TISSUE/ABDOMINAL WALL: Unremarkable IMPRESSION: 1. Findings in the distal duodenum suggesting duodenitis. 2. No evidence of bowel obstruction, free fluid, or free air. 3. Small left and tiny right pleural effusions. Adjacent pulmonary opacities, likely atelectasis. 4. Gallbladder appears contracted, with mild wall thickening and/or pericholecystic fluid. If of con cern, follow-up ultrasound may be considered. 5. Other chronic and likely incidental findings, as described above.
[2023-06-07] MEDS: BUDESONIDE 0.5 MG/2 ML NEBU INHALATION SCH (20:35)
[2023-06-07] MEDS: IPRATROPIUM-ALBUTEROL 3 ML NEB INHALATION SCH (20:35)
[2023-06-07] MEDS: ATORVASTATIN 40 MG TAB PO SCH (22:34)
[2023-06-07] MEDS: LACTULOSE 20 GM/30 ML CUP PO SCH (22:34)
[2023-06-08 05:35] LABS: Glucose,Whole Blood 95 mg/dL (70-110)
[2023-06-08] MEDS: SODIUM CHLORIDE 0.9% 1,000 ML IV SCH ×2 (06:36→09:17)
[2023-06-08] MEDS ORDERED: PANTOPRAZOLE 40 MG TABLET PO SCH (07:30)
[2023-06-08 08:28] LABS: Basophils % (A) 0 %; Eosinophils # (A) 0.4 k/uL (0-0.7); Eosinophils % (A) 3 %; HCT 30.4 % (39.0-53.0); HGB 9.7 gm/dL (13.0-17.5); Hypochromasia Slight; Lymphocytes % (A) 7 %; MCH 29.2 pg (25.0-35.0); MCV 91.5 fL (80.0-100.0); Mean Platelet Volume 7.1; Monocytes # (A) 0.8 k/uL (0-1.0); Monocytes % (A) 6 %; Neutrophils # (A) 12.2 k/uL (1.3-7.7); Neutrophils % (A) 84 %; Platelet Count 340 k/uL (150-450); RBC 3.32 m/uL (4.30-5.90); RDW 15.1 % (11.5-15.5); WBC 14.5 k/uL (3.8-10.6)
[2023-06-08 08:40] LABS: African American GFR (CKD) >90 (>60 ml/min/1.73 sqM); Anion Gap 8 mmol/L; Blood Urea Nitrogen 5 mg/dL (9-20); Calcium 7.4 mg/dL (8.4-10.2); Carbon Dioxide 20 mmol/L (22-30); Chloride 108 mmol/L (98-107); Glucose 93 mg/dL (74-99); Non-African American GFR(CKD) >90 (>60 ml/min/1.73 sqM); Potassium 3.2 mmol/L (3.5-5.1); Sodium 136 mmol/L (137-145)
[2023-06-08] MEDS: IPRATROPIUM-ALBUTEROL 3 ML NEB INHALATION SCH ×2 (09:04→19:49)
[2023-06-08] MEDS: BUDESONIDE 0.5 MG/2 ML NEBU INHALATION SCH ×2 (09:04→19:49)
[2023-06-08] MEDS: PIPERACILLIN-TAZOBACTAM 3.375 GM in SODIUM CHLORIDE 0.9% 100 ML IVPB SCH ×2 (09:13→17:26)
[2023-06-08] MEDS: MIDODRINE 5 MG TAB PO SCH ×3 (09:13→17:38)
[2023-06-08] MEDS: DIVALPROEX ER 250 MG TAB.ER.24H PO SCH (09:14)
[2023-06-08] MEDS: FOLIC ACID 1 MG TAB PO SCH (09:14)
[2023-06-08] MEDS: MULTIVITAMINS, THERA 1 EACH TAB PO SCH (09:14)
[2023-06-08] MEDS: THIAMINE 100 MG TAB PO SCH (09:14)
[2023-06-08] MEDS: LACTULOSE 20 GM/30 ML CUP PO SCH ×2 (09:15→21:05)
[2023-06-08] MEDS: LACTATED RINGERS 1,000 ML IV SCH ×2 (12:29→21:05)
[2023-06-08] MEDS: POTASSIUM CHLORIDE ER 20 MEQ TAB.ER PO SCH ×2 (12:29→14:20)
--- NOTE | 2023-06-08 16:25 | P.GSCN ---
History of Present Illness Consult date: 06/08/23 History of present illness: CHIEF COMPLAINT: Pain in cold extremities with mottling HISTORY OF PRESENT ILLNESS: This is a 63-year-old male who presented to the hospital with complaints of pain and caregivers he reported that his legs and hands were cold and mottling which was atypical for him. He resides at a skilled nursing. Surgical service was consulted for possible cholecystitis. Patient does report having abdominal pain for one month. However, patient is confused and poor historian. He does report diarrhea. Denies any nausea or vomiting. He had a computed tomography scan abdomen and pelvis completed reports findings in the distal duodenum suggestive of duodenitis. No evidence of bowel obstruction, free fluid or free air. Gallbladder appears contracted with mild wall thickening and/or pericholecystic fluid. Patient seen and examined with Dr. rodriguez PAST MEDICAL HISTORY: Memory impairment, myocardial infarction PAST SURGICAL HISTORY: See below MEDICATIONS: See below ALLERGIES: See below SOCIAL HISTORY: No illicit drug use. REVIEW OF SYSTEMS: CONSTITUTIONAL: Denies fever or chills. HEENT: Denies blurred vision, vision changes, or eye pain. Denies hemoptysis CARDIOVASCULAR: Denies chest pain or pressure. RESPIRATORY: No shortness of breath. GASTROINTESTINAL: See HPI for pertinent findings HEMATOLOGIC: Denies bleeding disorders. GENITOURINARY: Denies any blood in urine or increased urinary frequency. SKIN: Denies pruitis. Denies rash. PHYSICAL EXAM: VITAL SIGNS: Reviewed GENERAL: Well-developed in no acute distress. ABDOMEN: Soft. Nondistended. Tenderness to palpation lower mid abdomen NEUROLOGIC: Awake. confused LABORATORY DATA: WBC 14.5 Hgb 9.7 platelets 340 Sodium 136 potassium 3.2 creatinine 0.25 Total bili 0.4 AST 44 ALT 14 alk phos 134 CRP 7.0 Drug screen negative IMAGING: Chest x-ray mild pulmonary vascular congestion Computed tomography scan abdomen and pelvis reports findings in the distal d uodenum suggesting duodenitis. No evidence of bowel obstruction, free fluid or free air. Small left and right tiny pleural effusions. Adjacent pulmonary opacities likely atelectasis. Gallbladder appears contracted with mild wall thickening and/or pericholecystic fluid. If of concern follow-up ultrasound may be considered. ASSESSMENT: 1. Abdominal pain 2. Duodenitis noted on computed tomography scan 3. Cholecystitis. Computed tomography scan reports gallbladder appears contracted with mild wall thickening and/or pericholecystic fluid 4. Hypokalemia. Patient receiving potassium supplement PLAN: -Patient scheduled for EGD tomorrow with Dr. rodriguez -Keep patient nothing by mouth after midnight -Change Protonix 40 mg IV daily -Patient scheduled for laparoscopic cholecystectomy on 06/10/2023 Physician Nurse First Assist note has been reviewed by physician. Signing provider agrees with the documented findings, assessment, and plan of care. Past Medical History Past Medical History: Memory Impairment, Myocardial Infarction ([place]) Last Myocardial Infarction Date:: . History of Any Multi-Drug Resistant Organisms: Unobtainable Smoking Status: Former smoker Past Alcohol Use History: Heavy Medications and Allergies Home Medications Medication Instructions Recorded Confirmed Type Amoxic-Pot Clav 875-125Mg 1 tab PO Q12HR 06/06/23 06/06/23 History [Augmentin 875-125] Aspirin EC [Ecotrin Low Dose] 81 mg PO DAILY 06/06/23 06/06/23 History Atorvastatin [Lipitor] 40 mg PO HS 06/06/23 06/06/23 History Budesonide [Pulmicort] 0.5 mg INHALATION RT-BID 06/06/23 06/06/23 History Divalproex ER [Depakote ER] 250 mg PO DAILY 06/06/23 06/06/23 History Folic Acid 1 mg PO DAILY 06/06/23 06/06/23 History Ipratropium-Albuterol Nebulize 3 ml INHALATION RT-BID 06/06/23 06/06/23 History [Duoneb 0.5 mg-3 mg/3 ml Soln] Lactose-Reduced Food [Ensure Plus] 1 can PO TID@0900,1300,2100 06/06/23 06/06/23 History Lactulose 20 gm PO BID 06/06/23 06/06/23 History Metoprolol Succinate (ER) [Toprol 25 mg PO DAILY 06/06/23 06/06/23 History Xl] Midodrine [ProAmatine] 5 mg PO TID@0900,1300,1800 06/06/23 06/06/23 History Mirtazapine 7.5 mg PO DAILY@1700 06/06/23 06/06/23 History Multivitamins, Thera [Multivitamin 1 tab PO DAILY 06/06/23 06/06/23 History (formulary)] Omeprazole [PriLOSEC] 20 mg PO DAILY 06/06/23 06/06/23 History Thiamine [Vitamin B-1] 100 mg PO DAILY 06/06/23 06/06/23 History Allergies Allergy/AdvReac Type Severity Reaction Status Date / Time No Known Allergies Allergy Verified 06/06/23 22:06 Surgical - Exam Vital Signs Temp Pulse Resp BP Pulse Ox 98.2 F 116 H 16 108/69 99 06/06/23 21:14 06/06/23 21:14 06/06/23 21:14 06/06/23 21:14 06/06/23 21:14 Results - Labs 06/08/23 08:03 06/08/23 08:03 Abnormal Lab Results - Last 24 Hours (Table) 06/07/23 06/08/23 06/08/23 Range/Units 07:20 08:03 08:03 WBC 14.5 H (3.8-10.6) k/uL RBC 3.32 L (4.30-5.90) m/uL Hgb 9.7 L (13.0-17.5) gm/dL Hct 30.4 L (39.0-53.0) % Neutrophils # 12.2 H (1.3-7.7) k/uL Sodium 136 L (137-145) mmol/L Potassium 3.2 L (3.5-5.1) mmol/L Chloride 108 H (98-107) mmol/L Carbon Dioxide 20 L (22-30) mmol/L BUN 5 L (9-20) mg/dL Creatinine 0.25 L (0.66-1.25) mg/dL Calcium 7.4 L (8.4-10.2) mg/dL Procalcitonin 0.19 H (0.02-0.09) ng/mL Microbiology - Last 24 Hours (Table) 06/06/23 00:32 Blood Culture - Preliminary Blood Diabetes panel 06/08/23 Range/Units 08:03 Sodium 136 L (137-145) mmol/L Potassium 3.2 L (3.5-5.1) mmol/L Chloride 108 H (98-107) mmol/L Carbon Dioxide 20 L (22-30) mmol/L BUN 5 L (9-20) mg/dL Creatinine 0.25 L (0.66-1.25) mg/dL Glucose 93 (74-99) mg/dL Calcium 7.4 L (8.4-10.2) mg/dL Calcium panel 06/08/23 Range/Units 08:03 Calcium 7.4 L (8.4-10.2) mg/dL Pituitary panel 06/08/23 Range/Units 08:03 Sodium 136 L (137-145) mmol/L Potassium 3.2 L (3.5-5.1) mmol/L Chloride 108 H (98-107) mmol/L Carbon Dioxide 20 L (22-30) mmol/L BUN 5 L (9-20) mg/dL Creatinine 0.25 L (0.66-1.25) mg/dL Glucose 93 (74-99) mg/dL Calcium 7.4 L (8.4-10.2) mg/dL Adrenal panel 06/08/23 Range/Units 08:03 Sodium 136 L (137-145) mmol/L Potassium 3.2 L (3.5-5.1) mmol/L Chloride 108 H (98-107) mmol/L Carbon Dioxide 20 L (22-30) mmol/L BUN 5 L (9-20) mg/dL Creatinine 0.25 L (0.66-1.25) mg/dL Glucose 93 (74-99) mg/dL Calcium 7.4 L (8.4-10.2) mg/dL
[2023-06-08] MEDS: MIRTAZAPINE 15 MG TAB PO SCH (17:26)
[2023-06-08] MEDS: PANTOPRAZOLE 40 MG/10 ML VIAL IVP SCH (17:26)
[2023-06-08] MEDS: ATORVASTATIN 40 MG TAB PO SCH (21:05)
[2023-06-08] MEDS ORDERED: ACETAMINOPHEN TAB 325 MG TAB PO PRN (21:19)
[2023-06-08] MEDS ORDERED: MELATONIN 5 MG TABLET PO ONE (21:30)
[2023-06-09] MEDS: PIPERACILLIN-TAZOBACTAM 3.375 GM in SODIUM CHLORIDE 0.9% 100 ML IVPB SCH ×4 (01:02→23:22)
[2023-06-09] MEDS: LACTATED RINGERS 1,000 ML IV SCH ×2 (06:24→18:13)
--- NOTE | 2023-06-09 07:00 | P.PN ---
Subjective Progress Note Date: 06/09/23 Patient is evaluated today family at bedside. Patient no longer reporting abdominal pain and no tenderness on palpation however abdominal pelvis CT does reveal some wall thickening and contracted gallbladder. Due tot he leukocytosis general surgery was consulted for evaluation. Remains on IV zosyn empirically. ID following. Patients family reports he has poor diet and has lost weight since being at the [facility]. Review of Systems Constitutional: Denied any fatigue denied any fever. Cardio vascular: denied any chest pain, palpitations Gastrointestinal: denied any nausea, vomiting, diarrhea Pulmonary: Reports shortness of breath cough Neurologic denied any new focal deficits Reports weakness. All inpatient medications were reviewed and appropriate changes in these medications as dictated in the interval history and assessment and plan. PHYSICAL EXAMINATION: GENERAL: The patient is alert and oriented x2, not in any acute distress. Well developed, well nourished. Thin built. HEENT: Pupils are round and equally reacting to light. EOMI. No scleral icterus. No conjunctival pallor. Normocephalic, atraumatic. No pharyngeal erythema. No thyromegaly. CARDIOVASCULAR: S1 and S2 present. No murmurs, rubs, or gallops. PULMONARY: Chest is clear to auscultation, no wheezing or crackles. ABDOMEN: Soft, nontender, nondistended, normoactive bowel sounds. No palpable organomegaly. MUSCULOSKELETAL: No joint swelling or deformity. EXTREMITIES: No cyanosis, clubbing, no pedal edema NEUROLOGICAL: Diffuse weakness no focal deficits. SKIN: No rashes. Assessment -Leukocytosis and lactic acidosis started on empiric antibiotics, source of infection not clear possibly acute cholecystitis due to the gallbladder wall thickening noted on imaging -Hyponatremia, hypovolemic -Hypokalemia from poor oral intake -Hyperlipidemia -Hypertension -Mild to moderate protein calorie malnutrition -COPD/asthma with no acute exacerbation GI prophylaxis DVT prophylaxis Plan Continue on empiric antibiotics, ID following General surgery consultation PT/OT following Repeat labs in AM The impression and plan of care has been dictated by Maria D Maxwell Nurse Practitioner as directed. Dr. Bella MD I have performed a history and physical examination and medical decision making of this patient, discussed the same with the dictator, and agree with the dictators assessment and plan as written, documented as a scribe. Based on total visit time, I have performed more than 50% of this visit. Objective - Vital Signs Vital signs: Vital Signs Temp 97.3 F L 06/08/23 07:00 Pulse 106 H 06/08/23 07:00 Resp 16 06/08/23 08:00 BP 113/77 06/08/23 07:00 Pulse Ox 96 06/08/23 07:00 FiO2 Intake & Output 06/07/23 06/08/23 06/08/23 18:59 06:59 18:59 Output Total 300 Balance -300 Weight 40.823 kg Output: Urine 300 Other: Voiding Method Diaper Diaper # Voids 2 - Labs CBC & Chem 7: 06/08/23 08:03 06/08/23 08:03 Labs: Abnormal Lab Results - Last 24 Hours (Table) 06/07/23 06/08/23 06/08/23 Range/Units 07:20 08:03 08:03 WBC 14.5 H (3.8-10.6) k/uL RBC 3.32 L (4.30-5.90) m/uL Hgb 9.7 L (13.0-17.5) gm/dL Hct 30.4 L (39.0-53.0) % Neutrophils # 12.2 H (1.3-7.7) k/uL Sodium 136 L (137-145) mmol/L Potassium 3.2 L (3.5-5.1) mmol/L Chloride 108 H (98-107) mmol/L Carbon Dioxide 20 L (22-30) mmol/L BUN 5 L (9-20) mg/dL Creatinine 0.25 L (0.66-1.25) mg/dL Calcium 7.4 L (8.4-10.2) mg/dL Procalcitonin 0.19 H (0.02-0.09) ng/mL Microbiology - Last 24 Hours (Table) 06/06/23 00:32 Blood Culture - Preliminary Blood
[2023-06-09 07:11] LABS: Basophils % (A) 0 %; Eosinophils # (A) 0.6 k/uL (0-0.7); Eosinophils % (A) 5 %; HGB 9.5 gm/dL (13.0-17.5); Hypochromasia Slight; Lymphocytes # (A) 1.4 k/uL (1.0-4.8); Lymphocytes % (A) 11 %; MCH 29.7 pg (25.0-35.0); MCHC 31.7 g/dL (31.0-37.0); MCV 93.6 fL (80.0-100.0); Monocytes # (A) 0.6 k/uL (0-1.0); Monocytes % (A) 5 %; Neutrophils # (A) 9.9 k/uL (1.3-7.7); Neutrophils % (A) 79 %; Platelet Count 404 k/uL (150-450); RDW 15.1 % (11.5-15.5); WBC 12.6 k/uL (3.8-10.6)
[2023-06-09] MEDS ORDERED: PROPOFOL 10 MG/ML 20 ML VIAL IV ONE (07:23)
[2023-06-09] MEDS ORDERED: LIDOCAINE 1% INJ 10MG/ML (20 ML MDV) ONE (07:23)
[2023-06-09 07:27] LABS: African American GFR (CKD) >90 (>60 ml/min/1.73 sqM); Anion Gap 6 mmol/L; Blood Urea Nitrogen 4 mg/dL (9-20); Calcium 7.3 mg/dL (8.4-10.2); Carbon Dioxide 20 mmol/L (22-30); Chloride 109 mmol/L (98-107); Glucose 110 mg/dL (74-99); Magnesium 1.7 mg/dL (1.6-2.3); Non-African American GFR(CKD) >90 (>60 ml/min/1.73 sqM); Potassium 3.7 mmol/L (3.5-5.1); Sodium 135 mmol/L (137-145)
[2023-06-09] MEDS ORDERED: LACTATED RINGERS 1,000 ML IV ONE ×2 (07:27)
[2023-06-09] MEDS: BUDESONIDE 0.5 MG/2 ML NEBU INHALATION SCH ×2 (09:30→18:25)
[2023-06-09] MEDS: IPRATROPIUM-ALBUTEROL 3 ML NEB INHALATION SCH ×2 (09:30→18:25)
[2023-06-09 09:42] VITALS: BMI 14.1
--- NOTE | 2023-06-09 10:15 | P.OP ---
Date of Procedure: 06/09/23 Preoperative Diagnosis: Epigastric abdominal pain Postoperative Diagnosis: Antral gastritis Mild esophagitis Procedure(s) Performed: EGD Anesthesia: MAC Surgeon: Shantanu Herbert Pathology: other (Antrum, esophagus) Condition: stable Disposition: PACU Description of Procedure: Patient's placed on the endoscopy table in the lateral position. He received IV sedation. The gastro-/oropharynx passed in the esophagus into the stomach. Scope then placed through the pylorus. The first and second portion of the duodenum appeared normal. Scope was then brought back the antrum this. Mildly inflamed. A biopsies performed. Scope was unretroflexed meters stomach appeared normal. The GE junction was at 47 is. The distal esophagus appeared mildly inflamed. A biopsies performed. The proximal esophagus appeared normal. Scope withdrawn for patient.
[2023-06-09] MEDS ORDERED: Magnesium Replacement Protocol 1 EACH MISC MISCELLANE PRN (10:20)
[2023-06-09] MEDS ORDERED: MAGNESIUM SULFATE-D5W PMX 1 GM in DEXTROSE/WATER 1 100ML.BAG IVPB ONE (11:00)
[2023-06-09] MEDS: PANTOPRAZOLE 40 MG/10 ML VIAL IVP SCH (11:07)
[2023-06-09] MEDS: LACTULOSE 20 GM/30 ML CUP PO SCH ×2 (11:07→20:09)
[2023-06-09] MEDS: THIAMINE 100 MG TAB PO SCH (11:08)
[2023-06-09] MEDS: MULTIVITAMINS, THERA 1 EACH TAB PO SCH (11:08)
[2023-06-09] MEDS: MIDODRINE 5 MG TAB PO SCH ×3 (11:08→18:10)
[2023-06-09] MEDS: DIVALPROEX ER 250 MG TAB.ER.24H PO SCH (11:08)
[2023-06-09] MEDS: FOLIC ACID 1 MG TAB PO SCH (11:08)
--- NOTE | 2023-06-09 13:38 | P.PN ---
Subjective Progress Note Date: 06/08/23 Principal diagnosis: Leukocytosis possible cholecystitis Patient is a 63-year-old male with a past medical history significant for [place] and memory impairment patient is a local long term resident patient has been sent to the ER as the patient was noticed to be cold , patient on presentation the hospital did have elevated white count, patient did have severe abdominal pelvis because of his abdominal pain and tenderness with concern for tinnitus and possible cholecystitis. On today's evaluation that is 06/08/2023, the patient remains to be afebrile, the patient is breathing comfortably on room air without the need for supplemental oxygen and no shortness of breath, the patient denies having any chest pain or cough, patient denies nausea/vomiting /diarrhea and abdominal pain has decreased in intensity. Patient white count is at 14.5, creatinine 0.25 cultures are currently pending Objective - Vital Signs Vital signs: Vital Signs Temp 97.3 F L 06/08/23 07:00 Pulse 106 H 06/08/23 07:00 Resp 16 06/08/23 07:00 BP 113/77 06/08/23 07:00 Pulse Ox 96 06/08/23 07:00 FiO2 Intake & Output 06/07/23 06/08/23 06/08/23 18:59 06:59 18:59 Weight 40.823 kg Other: Voiding Method Diaper # Voids 2 - Exam GENERAL DESCRIPTION: An elderly male lying in bed in no distress RESPIRATORY SYSTEM: Unlabored breathing , decreased breath sounds at bases HEART: S1 S2 regular rate and rhythm , ABDOMEN: Soft , no tenderness EXTREMITIES: No edema feet - Labs CBC & Chem 7: 06/09/23 06:47 06/09/23 06:47 Labs: Abnormal Lab Results - Last 24 Hours (Table) 06/07/23 06/07/23 06/08/23 Range/Units 07:20 07:20 08:03 WBC 14.5 H (3.8-10.6) k/uL RBC 3.32 L (4.30-5.90) m/uL Hgb 9.7 L (13.0-17.5) gm/dL Hct 30.4 L (39.0-53.0) % Sodium (137-145) mmol/L Potassium (3.5-5.1) mmol/L Chloride (98-107) mmol/L Carbon Dioxide (22-30) mmol/L BUN (9-20) mg/dL Creatinine (0.66-1.25) mg/dL Calcium (8.4-10.2) mg/dL C-Reactive Protein 7.0 H (<1.0) mg/dL Procalcitonin 0.19 H (0.02-0.09) ng/mL 06/08/23 Range/Units 08:03 WBC (3.8-10.6) k/uL RBC (4.30-5.90) m/uL Hgb (13.0-17.5) gm/dL Hct (39.0-53.0) % Sodium 136 L (137-145) mmol/L Potassium 3.2 L (3.5-5.1) mmol/L Chloride 108 H (98-107) mmol/L Carbon Dioxide 20 L (22-30) mmol/L BUN 5 L (9-20) mg/dL Creatinine 0.25 L (0.66-1.25) mg/dL Calcium 7.4 L (8.4-10.2) mg/dL C-Reactive Protein (<1.0) mg/dL Procalcitonin (0.02-0.09) ng/mL Assessment and Plan (1) Cholecystitis Current Visit: Yes Status: Acute Code(s): K81.9 - CHOLECYSTITIS, UNSPECIFIED SNOMED Code(s): 43137156 (2) Leukocytosis Current Visit: Yes Status: Acute Code(s): D72.829 - ELEVATED WHITE BLOOD CELL COUNT, UNSPECIFIED SNOMED Code(s): 752515902 Plan: 1patient with a leukocytosis in this patient who is long term resident sent to the ER for nonspecific symptoms patient complaining of some cramps in lower abdominal area the patient was noted to be slightly tender on clinic examination also have elevated lactic acid likely abdominal source 2- CT of abdominal pelvis with contrast suggestive of duodenitis and possible cholecystitis Gen. surgery has been consulted 3Patient to continue with Zosyn 3.375 g every 8 hours while waiting for the work-up to be completed Dictation was produced using [employer] dictation software. please excuse any grammatical, word or spelling errors. Time with Patient: Less than 30
--- NOTE | 2023-06-09 13:40 | P.PN ---
Subjective Progress Note Date: 06/09/23 Principal diagnosis: Leukocytosis possible cholecystitis Patient is a 63-year-old male with a past medical history significant for [place] and memory impairment patient is a local [facility] resident patient has been sent to the ER as the patient was noticed to be cold , patient on presentation the hospital did have elevated white count, patient did have severe abdominal pelvis because of his abdominal pain and tenderness with concern for tinnitus and possible cholecystitis. Patient is status post EGD on 06/09/2023 with mild gastritis On today's evaluation that is 06/09/2023, the patient continues to be afebrile the patient is breathing comfortably on room air, the patient denies chest pain, shortness of breath or cough, patient denies abdominal pain, no nausea/vomiting and no diarrhea no new symptoms Patient white count is down to 12.6, creatinine 0.26 cultures are currently pending Objective - Vital Signs Vital signs: Vital Signs Temp 97.5 F L 06/09/23 08:00 Pulse 92 06/09/23 09:00 Resp 16 06/09/23 08:00 BP 102/66 06/09/23 09:00 Pulse Ox 96 06/09/23 08:30 FiO2 Intake & Output 06/08/23 06/09/23 06/09/23 18:59 06:59 18:59 Intake Total 236 100 Output Total 300 Balance -64 100 Weight 40.823 kg Intake: IV 100 Oral 236 Output: Urine 300 Other: Voiding Method Diaper Diaper Diaper # Voids 2 1 # Bowel Movements 1 1 - Exam GENERAL DESCRIPTION: An elderly male lying in bed in no distress RESPIRATORY SYSTEM: Unlabored breathing , decreased breath sounds at bases HEART: S1 S2 regular rate and rhythm , ABDOMEN: Soft , no tenderness EXTREMITIES: No edema feet - Labs CBC & Chem 7: 06/09/23 06:47 06/09/23 06:47 Labs: Abnormal Lab Results - Last 24 Hours (Table) 06/09/23 06/09/23 Range/Units 06:47 06:47 WBC 12.6 H (3.8-10.6) k/uL RBC 3.20 L (4.30-5.90) m/uL Hgb 9.5 L (13.0-17.5) gm/dL Hct 30.0 L (39.0-53.0) % Neutrophils # 9.9 H (1.3-7.7) k/uL Sodium 135 L (137-145) mmol/L Chloride 109 H (98-107) mmol/L Carbon Dioxide 20 L (22-30) mmol/L BUN 4 L (9-20) mg/dL Creatinine 0.26 L (0.66-1.25) mg/dL Glucose 110 H (74-99) mg/dL Calcium 7.3 L (8.4-10.2) mg/dL Microbiology - Last 24 Hours (Table) 06/06/23 00:32 Blood Culture - Preliminary Blood Assessment and Plan (1) Cholecystitis Current Visit: Yes Status: Acute Code(s): K81.9 - CHOLECYSTITIS, UNSPECIFIED SNOMED Code(s): 06306321 (2) Leukocytosis Current Visit: Yes Status: Acute Code(s): D72.829 - ELEVATED WHITE BLOOD CELL COUNT, UNSPECIFIED SNOMED Code(s): 196602088 Plan: 1patient with a leukocytosis in this patient who is [facility] resident sent to the ER for nonspecific symptoms patient complaining of some cramps in lower abdominal area the patient was noted to be slightly tender on clinic examination also have elevated lactic acid likely abdominal source 2- CT of abdominal pelvis with contrast suggestive of duodenitis and possible cholecystitis Gen. surgery see the patient possible cholecystectomy tomorrow 3Patient is afebrile and white count is trending down, to continue with Zosyn 3.375 g every 8 hours and monitor clinical course closely Dictation was produced using [employer] dictation software. please excuse any grammatical, word or spelling errors. Time with Patient: Less than 30
--- NOTE | 2023-06-09 14:09 | P.PN ---
Subjective Progress Note Date: 06/09/23 CHIEF COMPLAINT: Abdominal pain HISTORY OF PRESENT ILLNESS: Patient currently lying in bed comfortably. No abdominal pain. He had EGD completed today showing antral gastritis and mild esophagitis. Afebrile. WBC is down from 14.5-12.6 magnesium 1.7 and being replaced PHYSICAL EXAM: VITAL SIGNS: Reviewed. GENERAL: Well-developed in no acute distress. ABDOMEN: Soft. Nondistended. Nontender. NEUROLOGIC: Confused ASSESSMENT: 1. Abdominal pain 2. Gastritis and mild esophagitis noted on EGD 3. Cholecystitis. Computed tomography scan reports gallbladder appears contracted with mild wall thickening and/or pericholecystic fluid PLAN: -Patient scheduled for laparoscopic cholecystectomy tomorrow with Dr. rodriguez -Keep patient nothing by mouth after midnight -Continue antibiotics -continue Protonix Physician Child Care Associate note has been reviewed by physician. Signing provider agrees with the documented findings, assessment, and plan of care. Objective - Vital Signs Vital signs: Vital Signs Temp 97.5 F L 06/09/23 08:00 Pulse 92 06/09/23 09:00 Resp 16 06/09/23 08:00 BP 102/66 06/09/23 09:00 Pulse Ox 96 06/09/23 08:30 FiO2 Intake & Output 06/08/23 06/09/23 06/09/23 18:59 06:59 18:59 Intake Total 236 100 Output Total 300 Balance -64 100 Weight 40.823 kg Intake: IV 100 Oral 236 Output: Urine 300 Other: Voiding Method Diaper Diaper Diaper # Voids 2 1 # Bowel Movements 1 1 - Labs CBC & Chem 7: 06/09/23 06:47 06/09/23 06:47 Labs: Abnormal Lab Results - Last 24 Hours (Table) 06/08/23 06/09/23 06/09/23 Range/Units 08:03 06:47 06:47 WBC 12.6 H (3.8-10.6) k/uL RBC 3.20 L (4.30-5.90) m/uL Hgb 9.5 L (13.0-17.5) gm/dL Hct 30.0 L (39.0-53.0) % Neutrophils # 12.2 H 9.9 H (1.3-7.7) k/uL Sodium 135 L (137-145) mmol/L Chloride 109 H (98-107) mmol/L Carbon Dioxide 20 L (22-30) mmol/L BUN 4 L (9-20) mg/dL Creatinine 0.26 L (0.66-1.25) mg/dL Glucose 110 H (74-99) mg/dL Calcium 7.3 L (8.4-10.2) mg/dL Microbiology - Last 24 Hours (Table) 06/06/23 00:32 Blood Culture - Preliminary Blood
[2023-06-09] MEDS: MIRTAZAPINE 15 MG TAB PO SCH (18:10)
[2023-06-09] MEDS: ATORVASTATIN 40 MG TAB PO SCH (20:09)
--- NOTE | 2023-06-10 00:03 | P.PN ---
Subjective Progress Note Date: 06/09/23 Patient is evaluated today family at bedside. Patient no longer reporting abdominal pain and no tenderness on palpation however abdominal pelvis CT does reveal some wall thickening and contracted gallbladder. Due tot he leukocytosis general surgery was consulted for evaluation. Remains on IV zosyn empirically. ID following. Patients family reports he has poor diet and has lost weight since being at the [facility]. 06/09/2023 Patient evaluated today resting in bed. No acute complaints no abdominal pain, no arm pain. Underwent EGD showing antral gastritis and mild esophagitis. Remains on LR at 100 mls/hr. Scheduled for lap chas tomorrow this was discussed with the public guardian jessica over the phone. Review of Systems Constitutional: Denied any fatigue denied any fever. Cardio vascular: denied any chest pain, palpitations Gastrointestinal: denied any nausea, vomiting, diarrhea Pulmonary: Reports shortness of breath cough Neurologic denied any new focal deficits Reports weakness. All inpatient medications were reviewed and appropriate changes in these medications as dictated in the interval history and assessment and plan. PHYSICAL EXAMINATION: GENERAL: The patient is alert and oriented x2, not in any acute distress. Well developed, well nourished. Thin built. HEENT: Pupils are round and equally reacting to light. EOMI. No scleral icterus. No conjunctival pallor. Normocephalic, atraumatic. No pharyngeal erythema. No thyromegaly. CARDIOVASCULAR: S1 and S2 present. No murmurs, rubs, or gallops. PULMONARY: Chest is clear to auscultation, no wheezing or crackles. ABDOMEN: Soft, nontender, nondistended, normoactive bowel sounds. No palpable organomegaly. MUSCULOSKELETAL: No joint swelling or deformity. EXTREMITIES: No cyanosis, clubbing, no pedal edema NEUROLOGICAL: Diffuse weakness no focal deficits. SKIN: No rashes. Assessment -Leukocytosis and lactic acidosis started on empiric antibiotics, source of infection not clear possibly acute cholecystitis due to the gallbladder wall thickening noted on imaging -EGD reveals esophagitis and antral gastritis -Hyponatremia, hypovolemic -Hypokalemia from poor oral intake -Hypomagnesemia supplemented -Hyperlipidemia -Hypertension -Mild to moderate protein calorie malnutrition -COPD/asthma with no acute exacerbation GI prophylaxis DVT prophylaxis Plan Continue on empiric antibiotics, ID following General surgery consultation Scheduled to undergo lap chas tomorrow PT/OT following Repeat labs in AM The impression and plan of care has been dictated by Maria D Maxwell Nurse Practitioner as directed. Dr. Bella MD I have performed a history and physical examination and medical decision making of this patient, discussed the same with the dictator, and agree with the di ctators assessment and plan as written, documented as a scribe. Based on total visit time, I have performed more than 50% of this visit. Objective - Vital Signs Vital signs: Vital Signs Temp 97.4 F L 06/09/23 19:46 Pulse 118 H 06/09/23 19:46 Resp 16 06/09/23 19:46 BP 91/53 06/09/23 19:46 Pulse Ox 93 L 06/09/23 19:46 FiO2 Intake & Output 06/09/23 06/09/23 06/10/23 06:59 18:59 06:59 Intake Total 220 Balance 220 Weight 40.823 kg Intake: IV 100 Oral 120 Other: Voiding Method Diaper Diaper Diaper # Voids 2 2 # Bowel Movements 1 - Labs CBC & Chem 7: 06/09/23 06:47 06/09/23 06:47 Labs: Abnormal Lab Results - Last 24 Hours (Table) 06/09/23 06/09/23 Range/Units 06:47 06:47 WBC 12.6 H (3.8-10.6) k/uL RBC 3.20 L (4.30-5.90) m/uL Hgb 9.5 L (13.0-17.5) gm/dL Hct 30.0 L (39.0-53.0) % Neutrophils # 9.9 H (1.3-7.7) k/uL Sodium 135 L (137-145) mmol/L Chloride 109 H (98-107) mmol/L Carbon Dioxide 20 L (22-30) mmol/L BUN 4 L (9-20) mg/dL Creatinine 0.26 L (0.66-1.25) mg/dL Glucose 110 H (74-99) mg/dL Calcium 7.3 L (8.4-10.2) mg/dL Microbiology - Last 24 Hours (Table) 06/06/23 00:32 Blood Culture - Preliminary Blood Assessment and Plan Time with Patient: Less than 30
[2023-06-10] MEDS: LACTATED RINGERS 1,000 ML IV SCH ×3 (03:10→22:41)
[2023-06-10 06:59] LABS: Basophils % (A) 0 %; Eosinophils # (A) 0.5 k/uL (0-0.7); Eosinophils % (A) 3 %; HCT 31.8 % (39.0-53.0); HGB 10.1 gm/dL (13.0-17.5); Hypochromasia Moderate; Lymphocytes # (A) 1.3 k/uL (1.0-4.8); Lymphocytes % (A) 9 %; MCHC 31.6 g/dL (31.0-37.0); MCV 94.9 fL (80.0-100.0); Mean Platelet Volume 8.1; Monocytes # (A) 0.6 k/uL (0-1.0); Monocytes % (A) 4 %; Neutrophils # (A) 12.2 k/uL (1.3-7.7); Neutrophils % (A) 82 %; Platelet Count 383 k/uL (150-450); RBC 3.35 m/uL (4.30-5.90); RDW 15.1 % (11.5-15.5); WBC 14.8 k/uL (3.8-10.6)
[2023-06-10 07:01] LABS: African American GFR (CKD) >90 (>60 ml/min/1.73 sqM); Anion Gap 7 mmol/L; Blood Urea Nitrogen 5 mg/dL (9-20); Calcium 7.4 mg/dL (8.4-10.2); Carbon Dioxide 19 mmol/L (22-30); Chloride 107 mmol/L (98-107); Glucose 83 mg/dL (74-99); Non-African American GFR(CKD) >90 (>60 ml/min/1.73 sqM); Sodium 133 mmol/L (137-145)
[2023-06-10 07:10] LABS: Magnesium 1.6 mg/dL (1.6-2.3); Potassium 3.9 mmol/L (3.5-5.1)
[2023-06-10] MEDS: IPRATROPIUM-ALBUTEROL 3 ML NEB INHALATION SCH ×2 (09:54→19:52)
[2023-06-10] MEDS: BUDESONIDE 0.5 MG/2 ML NEBU INHALATION SCH ×2 (09:54→19:52)
[2023-06-10] MEDS: PIPERACILLIN-TAZOBACTAM 3.375 GM in SODIUM CHLORIDE 0.9% 100 ML IVPB SCH ×2 (10:24→19:20)
[2023-06-10] MEDS: PANTOPRAZOLE 40 MG/10 ML VIAL IVP SCH (10:24)
[2023-06-10] MEDS: MIDODRINE 5 MG TAB PO SCH ×3 (10:25→17:54)
[2023-06-10] MEDS: POTASSIUM CHLORIDE ER 20 MEQ TAB.ER PO SCH (10:25)
[2023-06-10] MEDS: DIVALPROEX ER 250 MG TAB.ER.24H PO SCH (10:25)
--- NOTE | 2023-06-10 10:48 | P.PN ---
Subjective Progress Note Date: 06/10/23 CHIEF COMPLAINT: Abdominal pain HISTORY OF PRESENT ILLNESS: Patient sleeping comfortably in bed. No abdominal pain reported. He had EGD completed today showing antral gastritis and mild esophagitis. Afebrile. WBC up from 12 to 14.8 PHYSICAL EXAM: VITAL SIGNS: Reviewed. GENERAL: Well-developed in no acute distress. ABDOMEN: Soft. Nondistended. Nontender. NEUROLOGIC: Confused ASSESSMENT: 1. Abdominal pain 2. Gastritis and mild esophagitis noted on EGD 3. Cholecystitis. Computed tomography scan reports gallbladder appears contracted with mild wall thickening and/or pericholecystic fluid PLAN: -Patient scheduled for laparoscopic cholecystectomy today with Dr. rodriguez -Keep patient nothing by mouth -Continue antibiotics -continue Protonix Physician Machine Design Checker note has been reviewed by physician. Signing provider agrees with the documented findings, assessment, and plan of care. Objective - Vital Signs Vital signs: Vital Signs Temp 98.1 F 06/10/23 07:00 Pulse 76 06/10/23 07:00 Resp 17 06/10/23 08:00 BP 114/71 06/10/23 07:00 Pulse Ox 88 L 06/10/23 09:54 FiO2 Intake & Output 06/09/23 06/10/23 06/10/23 18:59 06:59 18:59 Intake Total 220 Balance 220 Weight 40.823 kg Intake: IV 100 Oral 120 Other: Voiding Method Diaper Diaper Diaper # Voids 2 2 # Bowel Movements 1 - Labs CBC & Chem 7: 06/10/23 05:44 06/10/23 05:44 Labs: Abnormal Lab Results - Last 24 Hours (Table) 06/10/23 06/10/23 Range/Units 05:44 05:44 WBC 14.8 H (3.8-10.6) k/uL RBC 3.35 L (4.30-5.90) m/uL Hgb 10.1 L (13.0-17.5) gm/dL Hct 31.8 L (39.0-53.0) % Neutrophils # 12.2 H (1.3-7.7) k/uL Sodium 133 L (137-145) mmol/L Carbon Dioxide 19 L (22-30) mmol/L BUN 5 L (9-20) mg/dL Creatinine 0.26 L (0.66-1.25) mg/dL Calcium 7.4 L (8.4-10.2) mg/dL Microbiology - Last 24 Hours (Table) 06/06/23 00:32 Blood Culture - Preliminary Blood
[2023-06-10] MEDS: FOLIC ACID 1 MG TAB PO SCH (11:26)
[2023-06-10] MEDS: MULTIVITAMINS, THERA 1 EACH TAB PO SCH (11:26)
[2023-06-10] MEDS: THIAMINE 100 MG TAB PO SCH (11:26)
[2023-06-10] MEDS: LACTULOSE 20 GM/30 ML CUP PO SCH ×2 (11:26→20:16)
--- NOTE | 2023-06-10 11:38 | CDI ---
Documentation Clarification Form Date: 06/10/2023 11:06:19 AM From: Yessi Aguilar RN CCDS Phone: [phone] Admit Date: 06/08/2023 11:57:00 AM Patient Name: Sebastien Stevens Visit Number: [id number] Discharge Date: ATTENTION: The Clinical Documentation Specialists (CDI) and [facility] Coding Staff appreciate your assistance in clarifying documentation. Please respond to the clarification below the line at the bottom and electronically sign. The CDI & [facility] Coding staff will review the response and follow-up if needed. Please note: Queries are made part of the Legal Health Record. If you have any questions, please contact the author of this message via ITS. Dr. Aidan Blanco The patient possible Sepsis, 06/07 in the H&P. Based on this information and the findings below, is there an additional diagnosis that is clinically appropriate for this patient? History/Risk Factors: 63-year-old female presents to the ED from [facility] where she lives the patients legs and hands seemed to be cold and mottled which is atypical for him. Patient reports pain all over. Septic workup was initiated. Medical History: HTN and COPD/Asthma. 06/08, H&P. Clinical Indicators: WBC, 06/05: 19.9 Lactic acid, 06/05: 2.4 Neutrophils, 06/05: 17.7 Blood cultures, 06/05: No growth after 48 hours Vitals signs, 06/05: B/P HR Temp RR SPO2 CT ABD, 06/07: Gallbladder appears contracted, with mild wall thickening and/or pericholecystic fluid EGD, 06/09: Antral gastritis and mild esophagitis Treatment: scheduled cholecystectomy 06/10 ID Consult: 06/07 Patient with a leukocytosis in this patient who is residential resident sent to the ER for nonspecific symptoms patient complaints of some cramps in lower abdominal area the patient was noted to be slightly tender on clinical examination also have elevated lactic acid likely abdominal source. Antibiotics: 06/07 Rocephin IVP x 1; 06/07 Zoysn IVPB Q8H IV Bolus: 06/06 0.9NS IVPB 500cc bolus Is there an additional diagnosis that is clinically appropriate for this patient? [ x ] Sepsis, present on admission [ ] Sepsis ruled out [ ] Other, please specify [ ] Unable to determine SIRS Criteria: 2 or more of the following may indicate SIRS Temperature < 96.8F (36C) or > 101.0F (38.3C) Heart Rate > 90 bpm Respiratory Rate > 20 breaths/min or PaCO2 < 32 mmHg White Blood Cell Count > 12,000 or < 4,000 cells/mm3 or > 10% bands (Template Last Reviewed: August 2022) LEIGH
--- NOTE | 2023-06-10 12:10 | P.PN ---
Subjective Progress Note Date: 06/10/23 Principal diagnosis: Leukocytosis possible cholecystitis Patient is a 63-year-old male with a past medical history significant for [place] and memory impairment patient is a local prison resident patient has been sent to the ER as the patient was noticed to be cold , patient on presentation the hospital did have elevated white count, patient did have severe abdominal pelvis because of his abdominal pain and tenderness with concern for tinnitus and possible cholecystitis. Patient is status post EGD on 06/09/2023 with mild gastritis On today's evaluation that is 06/10/2023, the patient remains to be afebrile the patient is breathing comfortably on room air, the patient denies chest pain, shortness of breath or cough, patient denies nausea/vomiting , no diarrhea and no abdominal pain Patient white count is slightly up to 14.8 today, creatinine 0.26 cultures are currently pending Objective - Vital Signs Vital signs: Vital Signs Temp 98.1 F 06/10/23 07:00 Pulse 76 06/10/23 07:00 Resp 17 06/10/23 08:00 BP 114/71 06/10/23 07:00 Pulse Ox 88 L 06/10/23 09:54 FiO2 Intake & Output 06/09/23 06/10/23 06/10/23 18:59 06:59 18:59 Intake Total 220 Balance 220 Weight 40.823 kg Intake: IV 100 Oral 120 Other: Voiding Method Diaper Diaper Diaper # Voids 2 2 # Bowel Movements 1 - Exam GENERAL DESCRIPTION: An elderly male lying in bed in no distress RESPIRATORY SYSTEM: Unlabored breathing , decreased breath sounds at bases HEART: S1 S2 regular rate and rhythm , ABDOMEN: Soft , no tenderness EXTREMITIES: No edema feet - Labs CBC & Chem 7: 06/10/23 05:44 06/10/23 05:44 Labs: Abnormal Lab Results - Last 24 Hours (Table) 06/10/23 06/10/23 Range/Units 05:44 05:44 WBC 14.8 H (3.8-10.6) k/uL RBC 3.35 L (4.30-5.90) m/uL Hgb 10.1 L (13.0-17.5) gm/dL Hct 31.8 L (39.0-53.0) % Neutrophils # 12.2 H (1.3-7.7) k/uL Sodium 133 L (137-145) mmol/L Carbon Dioxide 19 L (22-30) mmol/L BUN 5 L (9-20) mg/dL Creatinine 0.26 L (0.66-1.25) mg/dL Calcium 7.4 L (8.4-10.2) mg/dL Microbiology - Last 24 Hours (Table) 06/06/23 00:32 Blood Culture - Preliminary Blood Assessment and Plan (1) Cholecystitis Current Visit: Yes Status: Acute Code(s): K81.9 - CHOLECYSTITIS, UNSPECIFIED SNOMED Code(s): 69268120 (2) Leukocytosis Current Visit: Yes Status: Acute Code(s): D72.829 - ELEVATED WHITE BLOOD CELL COUNT, UNSPECIFIED SNOMED Code(s): 799043854 Plan: 1patient with a leukocytosis in this patient who is prison resident sent to the ER for nonspecific symptoms patient complaining of some cramps in lower abdominal area the patient was noted to be slightly tender on clinic examination also have elevated lactic acid likely abdominal source 2- CT of abdominal pelvis with contrast suggestive of duodenitis and possible cholecystitis Gen. surgery see the patient possible cholecystectomy this afternoon 3Patient is afebrile however her white count is slightly up and we'll monitor closely 4- patient to continue with Zosyn 3.375 g every 8 hours and continue supportive care Dictation was produced using [employer] dictation software. please excuse any grammatical, word or spelling errors. Time with Patient: Less than 30
[2023-06-10] MEDS ORDERED: LACTATED RINGERS 1,000 ML IV ONE ×2 (13:09→14:34)
[2023-06-10] MEDS ORDERED: ONDANSETRON 4 MG/2 ML VIAL ONE (13:18)
[2023-06-10] MEDS ORDERED: HEPARIN SODIUM,PORCINE 5,000 UNIT/ML 1 ML VIAL SQ ONE (13:20)
[2023-06-10] MEDS ORDERED: ONDANSETRON 4 MG/2 ML VIAL IVP ONE (13:20)
[2023-06-10] MEDS ORDERED: fentaNYL (PF) 50 MCG/ML 2 ML AMP ONE (13:50)
[2023-06-10] MEDS ORDERED: SUCCINYLCHOLINE CHLORIDE 200 MG/10 ML VIAL IV ONE (13:50)
[2023-06-10] MEDS ORDERED: GLYCOPYRROLATE 0.2 MG/ML 2 ML VIAL ONE (13:50)
[2023-06-10] MEDS ORDERED: NEOSTIGMINE 1 MG/ML 10 ML VIAL ONE (13:50)
[2023-06-10] MEDS ORDERED: PROPOFOL 10 MG/ML 20 ML VIAL IV ONE (13:50)
[2023-06-10] MEDS ORDERED: ROCURONIUM 10 MG/ML (5 ML VIAL) IV ONE (13:50)
[2023-06-10] MEDS ORDERED: LIDOCAINE 1% INJ 10MG/ML (20 ML MDV) ONE (13:50)
[2023-06-10] MEDS ORDERED: BUPIVACAINE (PF) 0.25% 30 ML VIAL SQ ONE (14:29)
--- NOTE | 2023-06-10 14:53 | P.OP ---
Date of Procedure: 06/10/23 Preoperative Diagnosis: Acute cholecystitis Postoperative Diagnosis: Acute cholecystitis Procedure(s) Performed: Laparoscopic cholecystectomy Anesthesia: DINORAH Surgeon: Shantanu Herbert Estimated Blood Loss (ml): 5 Pathology: other (Gallbladder) Disposition: PACU Description of Procedure: The patient was placed on the operating table. The patient received a general endotracheal tube anesthesia. The patients abdomen was prepped and draped in the usual sterile fashion. Through an infraumbilical stab incision, the fascia of the anterior abdominal wall was grasped with a pair of Kochers and then the Veress needle was placed in the peritoneal cavity. Position of the Veress needle was confirmed with positive drop test. The abdomen was then insufflated. After adequate insufflation, the 10 mm trocar was placed in the peritoneal cavity. Following this the laparoscope was placed in the peritoneal cavity. The patient was placed in the head-up, right side up position and then a 5 mm trocar was placed in the right lateral and right subcostal position under direct visualization. A 8 mm trocar was placed in the epigastric position. The gallbladder was grasped in the fundus and infundibulum. Traction on the gallbladder was placed in the lateral and the cephalad positions. The triangle of Calot was visualized.. The cystic duct was bluntly dissected until the union of the cystic duct and common bile duct was seen. A critical view of safety was achieved. The cystic duct was then divided and sealed with the Harmonic scissors. A PDS Endoloop was then placed throughout the cystic duct stump. The cystic artery divided and sealed with the Harmonic scissors. The gallbladder was then removed from the liver bed using Harmonic scissors. The gallbladder was then extracted through the epigastric port site. Operative field was checked for any bleeding spots and Harmonic scissors was used to coagulate the liver bed. The abdomen was irrigated. The trocars were removed. The skin was closed using interrupted 3-0 Vicryl suture. Dermabond dressing were applied. The patient tolerated the procedure well.
[2023-06-10] MEDS ORDERED: HYDROmorphone 1 MG/ML 1 ML SYRINGE IVP PRN (14:55)
--- NOTE | 2023-06-10 16:14 | P.PN ---
Subjective Progress Note Date: 06/10/23 Patient is evaluated today family at bedside. Patient no longer reporting abdominal pain and no tenderness on palpation however abdominal pelvis CT does reveal some wall thickening and contracted gallbladder. Due tot he leukocytosis general surgery was consulted for evaluation. Remains on IV zosyn empirically. ID following. Patients family reports he has poor diet and has lost weight since being at the [facility]. 06/09/2023 Patient evaluated today resting in bed. No acute complaints no abdominal pain, no arm pain. Underwent EGD showing antral gastritis and mild esophagitis. Remains on LR at 100 mls/hr. Scheduled for lap chas tomorrow this was discussed with the public guardian jessica over the phone. 06/10/2023 Patient is evaluated today resting in bed. He is scheduled to undergo laproscopic cholecystectomy today. White count 14.8 today. Sodium 133. Magnesium 1.6. Review of Systems Constitutional: Denied any fatigue denied any fever. Cardio vascular: denied any chest pain, palpitations Gastrointestinal: denied any nausea, vomiting, diarrhea Pulmonary: Reports shortness of breath cough Neurologic denied any new focal deficits Reports weakness. All inpatient medications were reviewed and appropriate changes in these medications as dictated in the interval history and assessment and plan. PHYSICAL EXAMINATION: GENERAL: The patient is alert and oriented x2, not in any acute distress. Well developed, well nourished. Thin built. HEENT: Pupils are round and equally reacting to light. EOMI. No scleral icterus. No conjunctival pallor. Normocephalic, atraumatic. No pharyngeal erythema. No thyromegaly. CARDIOVASCULAR: S1 and S2 present. No murmurs, rubs, or gallops. PULMONARY: Chest is clear to auscultation, no wheezing or crackles. ABDOMEN: Soft, nontender, nondistended, normoactive bowel sounds. No palpable organomegaly. MUSCULOSKELETAL: No joint swelling or deformity. EXTREMITIES: No cyanosis, clubbing, no pedal edema NEUROLOGICAL: Diffuse weakness no focal deficits. SKIN: No rashes. Assessment -Leukocytosis and lactic acidosis started on empiric antibiotics, source of infection not clear possibly acute cholecystitis due to the gallbladder wall thickening noted on imaging -EGD reveals esophagitis and antral gastritis -Hyponatremia, hypovolemic -Hypokalemia from poor oral intake -Hypomagnesemia supplemented -Hyperlipidemia -Hypertension -Moderate protein calorie malnutrition -COPD/asthma with no acute exacerbation GI prophylaxis DVT prophylaxis Plan Continue on empiric antibiotics, ID following General surgery consultation pending grzegorz doherty today. PT/OT following Repeat labs in AM The impression and plan of care has been dictated by Maria D Maxwell, Nurse Practitioner as directed. Dr. Bella MD I have performed a history and physical examination and medical decision making of this patient, discussed the same with the dictator, and agree with the dictators assessment and plan as written, documented as a scribe. Based on total visit time, I have performed more than 50% of this visit. Objective - Vital Signs Vital signs: Vital Signs Temp 97 F L 06/10/23 14:43 Pulse 91 06/10/23 15:28 Resp 16 06/10/23 15:28 BP 116/70 06/10/23 15:28 Pulse Ox 96 06/10/23 15:28 FiO2 Intake & Output 06/09/23 06/10/23 06/10/23 18:59 06:59 18:59 Intake Total 220 650 Output Total 5 Balance 220 645 Weight 40.823 kg 40.823 kg Intake: IV 100 650 Oral 120 Output: Estimated Blood Loss 5 Other: Voiding Method Diaper Diaper Diaper # Voids 2 2 # Bowel Movements 1 - Labs CBC & Chem 7: 06/10/23 05:44 06/10/23 05:44 Labs: Abnormal Lab Results - Last 24 Hours (Table) 06/10/23 06/10/23 Range/Units 05:44 05:44 WBC 14.8 H (3.8-10.6) k/uL RBC 3.35 L (4.30-5.90) m/uL Hgb 10.1 L (13.0-17.5) gm/dL Hct 31.8 L (39.0-53.0) % Neutrophils # 12.2 H (1.3-7.7) k/uL Sodium 133 L (137-145) mmol/L Carbon Dioxide 19 L (22-30) mmol/L BUN 5 L (9-20) mg/dL Creatinine 0.26 L (0.66-1.25) mg/dL Calcium 7.4 L (8.4-10.2) mg/dL Microbiology - Last 24 Hours (Table) 06/06/23 00:32 Blood Culture - Preliminary Blood Assessment and Plan Time with Patient: Less than 30
[2023-06-10] MEDS: MAGNESIUM SULFATE-D5W PMX 1 GM in DEXTROSE/WATER 1 100ML.BAG IVPB SCH ×2 (16:36→17:54)
[2023-06-10] MEDS: MIRTAZAPINE 15 MG TAB PO SCH (17:54)
[2023-06-10] MEDS: ATORVASTATIN 40 MG TAB PO SCH (20:16)
[2023-06-11] MEDS: PIPERACILLIN-TAZOBACTAM 3.375 GM in SODIUM CHLORIDE 0.9% 100 ML IVPB SCH ×3 (05:54→17:30)
[2023-06-11 06:35] LABS: ALT 30 U/L (4-49); AST 95 U/L (17-59); African American GFR (CKD) >90 (>60 ml/min/1.73 sqM); Albumin/Globulin Ratio 0.8; Alkaline Phosphatase 228 U/L (38-126); Anion Gap 8 mmol/L; Blood Urea Nitrogen 6 mg/dL (9-20); Calcium 7.5 mg/dL (8.4-10.2); Carbon Dioxide 20 mmol/L (22-30); Chloride 105 mmol/L (98-107); Globulin 2.5 g/dL; Glucose 91 mg/dL (74-99); Non-African American GFR(CKD) >90 (>60 ml/min/1.73 sqM); Potassium 3.7 mmol/L (3.5-5.1); Sodium 133 mmol/L (137-145); Total Bilirubin 0.3 mg/dL (0.2-1.3); Total Protein 4.5 g/dL (6.3-8.2)
[2023-06-11 07:09] LABS: Basophils % (A) 0 %; Eosinophils # (A) 0.7 k/uL (0-0.7); Eosinophils % (A) 4 %; HCT 34.5 % (39.0-53.0); HGB 10.8 gm/dL (13.0-17.5); Hypochromasia Slight; Lymphocytes # (A) 1.4 k/uL (1.0-4.8); Lymphocytes % (A) 9 %; MCH 29.1 pg (25.0-35.0); MCHC 31.4 g/dL (31.0-37.0); Mean Platelet Volume 8.2; Monocytes # (A) 1.1 k/uL (0-1.0); Monocytes % (A) 7 %; Neutrophils # (A) 12.2 k/uL (1.3-7.7); Neutrophils % (A) 78 %; Platelet Count 407 k/uL (150-450); RBC 3.71 m/uL (4.30-5.90); RDW 15.3 % (11.5-15.5); WBC 15.6 k/uL (3.8-10.6)
[2023-06-11] MEDS: LACTATED RINGERS 1,000 ML IV SCH (08:38)
[2023-06-11] MEDS: IPRATROPIUM-ALBUTEROL 3 ML NEB INHALATION SCH ×2 (08:55→20:34)
[2023-06-11] MEDS: BUDESONIDE 0.5 MG/2 ML NEBU INHALATION SCH ×2 (08:55→20:34)
[2023-06-11] MEDS ORDERED: ENOXAPARIN 40 MG/0.4 ML SYRINGE SQ SCH (09:00)
[2023-06-11] MEDS: SODIUM CHLORIDE 0.9% 1,000 ML IV SCH ×2 (10:35→17:28)
[2023-06-11] MEDS: MIDODRINE 5 MG TAB PO SCH ×3 (10:37→17:30)
[2023-06-11] MEDS: LACTULOSE 20 GM/30 ML CUP PO SCH ×2 (10:37→20:31)
[2023-06-11] MEDS: FOLIC ACID 1 MG TAB PO SCH (10:37)
[2023-06-11] MEDS: DIVALPROEX ER 250 MG TAB.ER.24H PO SCH (10:37)
[2023-06-11] MEDS: MULTIVITAMINS, THERA 1 EACH TAB PO SCH (10:37)
[2023-06-11] MEDS: THIAMINE 100 MG TAB PO SCH (10:37)
[2023-06-11] MEDS: ENOXAPARIN 40 MG/0.4 ML SYRINGE SQ SCH (10:37)
[2023-06-11] MEDS: PANTOPRAZOLE 40 MG/10 ML VIAL IVP SCH (10:37)
[2023-06-11] MEDS: POTASSIUM CHLORIDE ER 20 MEQ TAB.ER PO SCH (10:38)
--- NOTE | 2023-06-11 12:30 | P.PN ---
Subjective Progress Note Date: 06/11/23 CHIEF COMPLAINT: Abdominal pain HISTORY OF PRESENT ILLNESS: Patient is postop day #1 status post laparoscopic cholecystectomy. Patient is lying in bed comfortably. He denies any abdominal pain. No nausea or vomiting. Patient had not eaten breakfast yet when examined this morning. He had EGD completed showing antral gastritis and mild esophagitis. Afebrile. Mildly tachycardic this morning. WBC is up from 14.8- 15.6 Hgb 10.8 platelets 407 sodium was 133 potassium 3.7 AST elevated 95 ALk phos 228 PHYSICAL EXAM: VITAL SIGNS: Reviewed. GENERAL: Well-developed in no acute distress. ABDOMEN: Soft. Nondistended. Nontender. NEUROLOGIC: Confused ASSESSMENT: 1. Acute Cholecystitis status post laparoscopic cholecystectomy 2. Gastritis and mild esophagitis noted on EGD PLAN: -Continue regular diet -Continue IV fluids until patient tolerates diet -Continue antibiotics per ID service -Continue Protonix -Encouraged patient to use incentive spirometer -Encouraged patient to increase activity level Physician Booth Cashier note has been reviewed by physician. Signing provider agrees with the documented findings, assessment, and plan of care. Objective - Vital Signs Vital signs: Vital Signs Temp 97.4 F L 06/11/23 07:00 Pulse 92 06/11/23 09:10 Resp 15 06/11/23 07:00 BP 111/73 06/11/23 07:00 Pulse Ox 94 L 06/11/23 08:56 FiO2 Intake & Output 06/10/23 06/11/23 06/11/23 18:59 06:59 18:59 Intake Total 650 59 Output Total 5 Balance 645 59 Weight 40.823 kg Intake: IV 650 Oral 59 Output: Estimated Blood Loss 5 Other: Voiding Method Diaper Diaper # Voids 0 - Labs CBC & Chem 7: 06/11/23 05:35 06/11/23 05:35 Labs: Abnormal Lab Results - Last 24 Hours (Table) 06/11/23 06/11/23 Range/Units 05:35 05:35 WBC 15.6 H (3.8-10.6) k/uL RBC 3.71 L (4.30-5.90) m/uL Hgb 10.8 L (13.0-17.5) gm/dL Hct 34.5 L (39.0-53.0) % Neutrophils # 12.2 H (1.3-7.7) k/uL Monocytes # 1.1 H (0-1.0) k/uL Sodium 133 L (137-145) mmol/L Carbon Dioxide 20 L (22-30) mmol/L BUN 6 L (9-20) mg/dL Creatinine 0.32 L (0.66-1.25) mg/dL Calcium 7.5 L (8.4-10.2) mg/dL AST 95 H (17-59) U/L Alkaline Phosphatase 228 H (38-126) U/L Total Protein 4.5 L (6.3-8.2) g/dL Albumin 2.0 L (3.5-5.0) g/dL Microbiology - Last 24 Hours (Table) 06/06/23 00:32 Blood Culture - Preliminary Blood
--- NOTE | 2023-06-11 12:35 | XR ---
EXAMINATION TYPE: XR chest 2V DATE OF EXAM: 06/11/2023 COMPARISON: 06/06/2023 TECHNIQUE: PA and lateral views submitted. HISTORY: Leukocytosis FINDINGS: A bilateral consolidation small effusion. Deformities of the rib cage suggest remote trauma. No overt failure or pneumothorax. Diffuse osteopenia and bilateral AC joint arthropathy. Atherosclerotic dozier ge aorta. Hyperinflation suggests COPD. IMPRESSION: 1. COPD with bilateral lower lobe infiltrate and small pleural effusion.
[2023-06-11] MEDS ORDERED: SODIUM CHLORIDE 0.9% 500 ML 500 ML IV ONE (15:56)
[2023-06-11] MEDS: MIRTAZAPINE 15 MG TAB PO SCH (17:30)
[2023-06-11] MEDS: TAMSULOSIN 0.4 MG CAP.ER.24H PO SCH (18:20)
[2023-06-11] MEDS: ATORVASTATIN 40 MG TAB PO SCH (20:31)
--- NOTE | 2023-06-11 22:35 | P.PN ---
Subjective Progress Note Date: 06/11/23 Patient is evaluated today family at bedside. Patient no longer reporting abdominal pain and no tenderness on palpation however abdominal pelvis CT does reveal some wall thickening and contracted gallbladder. Due tot he leukocytosis general surgery was consulted for evaluation. Remains on IV zosyn empirically. ID following. Patients family reports he has poor diet and has lost weight since being at the [facility]. 06/09/2023 Patient evaluated today resting in bed. No acute complaints no abdominal pain, no arm pain. Underwent EGD showing antral gastritis and mild esophagitis. Remains on LR at 100 mls/hr. Scheduled for lap chas tomorrow this was discussed with the public guardian jessica over the phone. 06/10/2023 Patient is evaluated today resting in bed. He is scheduled to undergo laproscopic cholecystectomy today. White count 14.8 today. Sodium 133. Magnesium 1.6. 06/11/2023 Patient is evaluated today resting in bed. PT/OT following. He is status post lap chas. White count continues to elevate this could be reactive to surgery however will rule out other source of infection. Blood culture is negative so far. Will check urinalysis and also chest xray. Patient has poor oral intake although today he does state he ate about 50% of breakfast. Review of Systems Constitutional: Denied any fatigue denied any fever. Cardio vascular: denied any chest pain, palpitations Gastrointestinal: denied any nausea, vomiting, diarrhea Pulmonary: Reports shortness of breath cough Neurologic denied any new focal deficits Reports weakness. All inpatient medications were reviewed and appropriate changes in these medications as dictated in the interval history and assessment and plan. PHYSICAL EXAMINATION: GENERAL: The patient is alert and oriented x2, not in any acute distress. Well developed, well nourished. Thin built. HEENT: Pupils are round and equally reacting to light. EOMI. No scleral icterus. No conjunctival pallor. Normocephalic, atraumatic. No pharyngeal erythema. No thyromegaly. CARDIOVASCULAR: S1 and S2 present. No murmurs, rubs, or gallops. PULMONARY: Chest is clear to auscultation, no wheezing or crackles. ABDOMEN: Soft, nontender, nondistended, normoactive bowel sounds. No palpable organomegaly. MUSCULOSKELETAL: No joint swelling or deformity. EXTREMITIES: No cyanosis, clubbing, no pedal edema NEUROLOGICAL: Diffuse weakness no focal deficits. SKIN: No rashes. Assessment -Leukocytosis and lactic acidosis started on empiric antibiotics, source of infection not clear possibly acute cholecystitis due to the gallbladder wall thickening noted on imaging patient is status post lap chas. -EGD reveals esophagitis and antral gastritis -Hyponatremia, hypovolemic -Hypokalemia from poor oral intake -Hypomagnesemia supplemented -Hyperlipidemia -Hypertension -Moderate protein calorie malnutrition -COPD/asthma with no acute exacerbation GI prophylaxis DVT prophylaxis Plan Continue on empiric antibiotics, ID following General surgery consultation patient is status post laproscopic cholecystectomy Check a chest xray, urinalysis Continue IV fluids PT/OT following Repeat labs in AM The impression and plan of care has been dictated by Maria D Maxwell Nurse Practitioner as directed. Dr. Bella MD I have performed a history and physical examination and medical decision making of this patient, discussed the same with the dictator, and agree with the dictators assessment and plan as written, documented as a scribe. Based on total visit time, I have performed more than 50% of this visit. Objective - Vital Signs Vital signs: Vital Signs Temp 97.7 F 06/11/23 20:00 Pulse 96 06/11/23 20:53 Resp 14 06/11/23 20:00 BP 105/67 06/11/23 20:00 Pulse Ox 96 06/11/23 20:00 FiO2 Intake & Output 06/11/23 06/11/23 06/12/23 06:59 18:59 06:59 Intake Total 159 Balance 159 Intake: Oral 159 Other: Voiding Method Diaper Diaper Diaper # Voids 0 0 - Labs CBC & Chem 7: 06/11/23 05:35 06/11/23 05:35 Labs: Abnormal Lab Results - Last 24 Hours (Table) 06/11/23 06/11/23 06/11/23 Range/Units 05:35 05:35 12:35 WBC 15.6 H (3.8-10.6) k/uL RBC 3.71 L (4.30-5.90) m/uL Hgb 10.8 L (13.0-17.5) gm/dL Hct 34.5 L (39.0-53.0) % Neutrophils # 12.2 H (1.3-7.7) k/uL Monocytes # 1.1 H (0-1.0) k/uL D-Dimer 1.45 H (<0.60) mg/L FEU Sodium 133 L (137-145) mmol/L Carbon Dioxide 20 L (22-30) mmol/L BUN 6 L (9-20) mg/dL Creatinine 0.32 L (0.66-1.25) mg/dL Calcium 7.5 L (8.4-10.2) mg/dL AST 95 H (17-59) U/L Alkaline Phosphatase 228 H (38-126) U/L Total Protein 4.5 L (6.3-8.2) g/dL Albumin 2.0 L (3.5-5.0) g/dL Assessment and Plan Time with Patient: Less than 30
--- NOTE | 2023-06-11 23:21 | P.PN ---
Subjective Progress Note Date: 06/11/23 Principal diagnosis: Leukocytosis possible cholecystitis Patient is a 63-year-old male with a past medical history significant for AL and memory impairment patient is a local [facility] resident patient has been sent to the ER as the patient was noticed to be cold , patient on presentation the hospital did have elevated white count, patient did have severe abdominal pelvis because of his abdominal pain and tenderness with concern for tinnitus and possible cholecystitis. Patient is status post EGD on 06/09/2023 with mild gastritis, Patient is s/p cholecystectomy completed on 06/10/2023. On today's evaluation that is 06/11/2023 the patient continues to be afebrile the patient is breathing comfortably on room air denies any chest pain shortness of breath or cough no nausea vomiting no abdominal pain or diarrhea. Patient white count slightly up to 15.6 today, creatinine 0.32 culture negative so far. Objective - Vital Signs Vital signs: Vital Signs Temp 97.4 F L 06/11/23 07:00 Pulse 92 06/11/23 09:10 Resp 15 06/11/23 07:00 BP 111/73 06/11/23 07:00 Pulse Ox 94 L 06/11/23 08:56 FiO2 Intake & Output 06/10/23 06/11/23 06/11/23 18:59 06:59 18:59 Intake Total 650 59 Output Total 5 Balance 645 59 Weight 40.823 kg Intake: IV 650 Oral 59 Output: Estimated Blood Loss 5 Other: Voiding Method Diaper Diaper # Voids 0 - Exam GENERAL DESCRIPTION: An elderly male lying in bed in no distress RESPIRATORY SYSTEM: Unlabored breathing , decreased breath sounds at bases HEART: S1 S2 regular rate and rhythm , ABDOMEN: Soft , no tenderness EXTREMITIES: No edema feet - Labs CBC & Chem 7: 06/11/23 05:35 06/11/23 05:35 Labs: Abnormal Lab Results - Last 24 Hours (Table) 06/11/23 06/11/23 Range/Units 05:35 05:35 WBC 15.6 H (3.8-10.6) k/uL RBC 3.71 L (4.30-5.90) m/uL Hgb 10.8 L (13.0-17.5) gm/dL Hct 34.5 L (39.0-53.0) % Neutrophils # 12.2 H (1.3-7.7) k/uL Monocytes # 1.1 H (0-1.0) k/uL Sodium 133 L (137-145) mmol/L Carbon Dioxide 20 L (22-30) mmol/L BUN 6 L (9-20) mg/dL Creatinine 0.32 L (0.66-1.25) mg/dL Calcium 7.5 L (8.4-10.2) mg/dL AST 95 H (17-59) U/L Alkaline Phosphatase 228 H (38-126) U/L Total Protein 4.5 L (6.3-8.2) g/dL Albumin 2.0 L (3.5-5.0) g/dL Microbiology - Last 24 Hours (Table) 06/06/23 00:32 Blood Culture - Preliminary Blood Assessment and Plan (1) Cholecystitis Current Visit: Yes Status: Acute Code(s): K81.9 - CHOLECYSTITIS, UNSPECIFIED SNOMED Code(s): 74073968 (2) Leukocytosis Current Visit: Yes Status: Acute Code(s): D72.829 - ELEVATED WHITE BLOOD CELL COUNT, UNSPECIFIED SNOMED Code(s): 886121063 Plan: 1patient with a leukocytosis in this patient who is [facility] resident sent to the ER for nonspecific symptoms patient complaining of some cramps in lower abdominal area the patient was noted to be slightly tender on clinic examination also have elevated lactic acid likely abdominal source 2- CT of abdominal pelvis with contrast suggestive of duodenitis and possible cholecystitis Gen. surgery see the patient s/p cholecystectomy on 06/10/23 3Patient to continue with the Zosyn we will repeat his inflammatory markers and CBC with a.m. lab and monitor clinical course closely family the bedside question concern answered Dictation was produced using [email or web address] dictation software. please excuse any grammatical, word or spelling errors.
[2023-06-12] MEDS: PIPERACILLIN-TAZOBACTAM 3.375 GM in SODIUM CHLORIDE 0.9% 100 ML IVPB SCH ×4 (00:01→23:58)
[2023-06-12] MEDS: SODIUM CHLORIDE 0.9% 1,000 ML IV SCH ×2 (05:09→16:03)
[2023-06-12 06:28] LABS: African American GFR (CKD) >90 (>60 ml/min/1.73 sqM); Anion Gap 5 mmol/L; Blood Urea Nitrogen 7 mg/dL (9-20); Calcium 7.1 mg/dL (8.4-10.2); Carbon Dioxide 21 mmol/L (22-30); Chloride 111 mmol/L (98-107); Glucose 116 mg/dL (74-99); Non-African American GFR(CKD) >90 (>60 ml/min/1.73 sqM); Potassium 3.5 mmol/L (3.5-5.1); Sodium 137 mmol/L (137-145)
[2023-06-12 08:52] LABS: Basophils # (A) 0.04 X 10*3/uL (0.00-0.10); Basophils % (A) 0.3 %; Eosinophils # (A) 0.48 X 10*3/uL (0.04-0.35); Eosinophils % (A) 3.6 %; HCT 30.9 % (39.6-50.0); HGB 9.6 d/dL (13.0-17.0); Lymphocytes # (A) 1.45 X 10*3/uL (0.90-5.00); Lymphocytes % (A) 10.8 %; MCH 28.4 pg (27.0-32.0); MCHC 31.1 d/dL (32.0-37.0); MCV 91.4 FL (80.0-97.0); Mean Platelet Volume 9.4 FL (9.5-12.2); Monocytes # (A) 0.88 X 10*3/uL (0.20-1.00); Monocytes % (A) 6.6 %; NRBC Per 100 WBC 0 X 10*3/uL (0.00-0.01); Neutrophils # (A) 10.39 X 10*3/uL (1.80-7.70); Neutrophils % (A) 77.3 %; Platelet Count 387 X 10*3/uL (140-440); RBC 3.38 X 10*6/uL (4.40-5.60); RDW 15.9 % (11.5-14.5); WBC 13.43 X 10*3/uL (4.50-10.00)
[2023-06-12] MEDS: IPRATROPIUM-ALBUTEROL 3 ML NEB INHALATION SCH ×2 (08:59→21:01)
[2023-06-12] MEDS: BUDESONIDE 0.5 MG/2 ML NEBU INHALATION SCH ×2 (08:59→21:01)
[2023-06-12] MEDS: LACTULOSE 20 GM/30 ML CUP PO SCH ×2 (09:43→22:10)
[2023-06-12] MEDS: MIDODRINE 5 MG TAB PO SCH ×3 (09:43→17:49)
[2023-06-12] MEDS: FOLIC ACID 1 MG TAB PO SCH (09:44)
[2023-06-12] MEDS: MULTIVITAMINS, THERA 1 EACH TAB PO SCH (09:44)
[2023-06-12] MEDS: THIAMINE 100 MG TAB PO SCH (09:44)
[2023-06-12] MEDS: TAMSULOSIN 0.4 MG CAP.ER.24H PO SCH (09:44)
[2023-06-12] MEDS: PANTOPRAZOLE 40 MG/10 ML VIAL IVP SCH (09:44)
[2023-06-12] MEDS: POTASSIUM CHLORIDE ER 20 MEQ TAB.ER PO SCH (09:44)
[2023-06-12] MEDS: DIVALPROEX ER 250 MG TAB.ER.24H PO SCH (09:44)
[2023-06-12] MEDS: ENOXAPARIN 40 MG/0.4 ML SYRINGE SQ SCH (09:44)
[2023-06-12] MEDS ORDERED: POTASSIUM CHLORIDE ER 20 MEQ TAB.ER PO STA (09:47)
[2023-06-12] MEDS ORDERED: HYDROcodone/APAP 5-325MG 1 EACH TAB PO PRN (13:25)
--- NOTE | 2023-06-12 13:32 | P.PN ---
Subjective Progress Note Date: 06/12/23 CHIEF COMPLAINT: Abdominal pain HISTORY OF PRESENT ILLNESS: Patient is postop day #2 status post laparoscopic cholecystectomy. He had EGD on 06/09/23 showing antral gastritis and mild esophagitis. Afebrile. Mildly tachycardic yesterday. WBC trending down from 15-13.43 Hgb 9.6. Patient has elevated d-dimer. Medicine service has ordered a CTA of the chest. Patient seen and examined with Dr. Herbert PHYSICAL EXAM: VITAL SIGNS: Reviewed. GENERAL: Well-developed in no acute distress. ABDOMEN: Soft. Nondistended. Incision sites clean dry and intact NEUROLOGIC: Confused ASSESSMENT: 1. Acute Cholecystitis status post laparoscopic cholecystectomy 2. Gastritis and mild esophagitis noted on EGD PLAN: -Patient can be discharged from surgical standpoint when medically cleared. -Continue regular diet -Continue antibiotics per ID service -Continue Protonix -Encouraged patient to use incentive spirometer -Encouraged patient to increase activity level Physician Insurance Claims Examiner note has been reviewed by physician. Signing provider agrees with the documented findings, assessment, and plan of care. Objective - Vital Signs Vital signs: Vital Signs Temp 97.5 F L 06/12/23 07:40 Pulse 96 06/12/23 07:40 Resp 16 06/12/23 07:40 BP 114/67 06/12/23 07:40 Pulse Ox 95 06/12/23 09:00 FiO2 Intake & Output 06/11/23 06/12/23 06/12/23 18:59 06:59 18:59 Intake Total 159 118 Output Total 183 Balance 159 -183 118 Intake: Oral 159 118 Output: Post Void Residual 183 Other: Voiding Method Diaper Diaper # Voids 0 1 - Labs CBC & Chem 7: 06/12/23 06:06 06/12/23 06:06 Labs: Abnormal Lab Results - Last 24 Hours (Table) 06/11/23 06/12/23 06/12/23 Range/Units 12:35 00:37 06:06 WBC (4.50-10.00) X 10*3/uL RBC (4.40-5.60) X 10*6/uL Hgb (13.0-17.0) d/dL Hct (39.6-50.0) % MCHC (32.0-37.0) d/dL RDW (11.5-14.5) % MPV (9.5-12.2) FL Neutrophils # (1.80-7.70) X 10*3/uL Eosinophils # (0.04-0.35) X 10*3/uL D-Dimer 1.45 H (<0.60) mg/L FEU Chloride 111 H (98-107) mmol/L Carbon Dioxide 21 L (22-30) mmol/L BUN 7 L (9-20) mg/dL Creatinine 0.28 L (0.66-1.25) mg/dL Glucose 116 H (74-99) mg/dL Calcium 7.1 L (8.4-10.2) mg/dL Procalcitonin 0.11 H (0.02-0.09) ng/mL 06/12/23 Range/Units 06:06 WBC 13.43 H (4.50-10.00) X 10*3/uL RBC 3.38 L (4.40-5.60) X 10*6/uL Hgb 9.6 L (13.0-17.0) d/dL Hct 30.9 L (39.6-50.0) % MCHC 31.1 L (32.0-37.0) d/dL RDW 15.9 H (11.5-14.5) % MPV 9.4 L (9.5-12.2) FL Neutrophils # 10.39 H (1.80-7.70) X 10*3/uL Eosinophils # 0.48 H (0.04-0.35) X 10*3/uL D-Dimer (<0.60) mg/L FEU Chloride (98-107) mmol/L Carbon Dioxide (22-30) mmol/L BUN (9-20) mg/dL Creatinine (0.66-1.25) mg/dL Glucose (74-99) mg/dL Calcium (8.4-10.2) mg/dL Procalcitonin (0.02-0.09) ng/mL
[2023-06-12 14:40] LABS: Appearance,Urine Clear (Clear); Bilirubin,Urine Negative (Negative); Blood,Urine Negative (Negative); Color,Urine Yellow; Glucose,Urine (UA) Negative (Negative); Ketones,Urine Trace (Negative); Leukocyte Esterase,Urine Negative (Negative); Nitrite,Urine Negative (Negative); PH, Urine 5.5 (5.0-8.0); Protein,Urine Trace (Negative); Specific Gravity,Urine 1.026 (1.001-1.035); Urobilinogen,Urine <2.0 mg/dL (<2.0)
--- NOTE | 2023-06-12 15:00 | P.PN ---
Subjective Progress Note Date: 06/12/23 Patient is evaluated today family at bedside. Patient no longer reporting abdominal pain and no tenderness on palpation however abdominal pelvis CT does reveal some wall thickening and contracted gallbladder. Due tot he leukocytosis general surgery was consulted for evaluation. Remains on IV zosyn empirically. ID following. Patients family reports he has poor diet and has lost weight since being at the [facility]. 06/09/2023 Patient evaluated today resting in bed. No acute complaints no abdominal pain, no arm pain. Underwent EGD showing antral gastritis and mild esophagitis. Remains on LR at 100 mls/hr. Scheduled for lap chas tomorrow this was discussed with the public guardian jessica over the phone. 06/10/2023 Patient is evaluated today resting in bed. He is scheduled to undergo laproscopic cholecystectomy today. White count 14.8 today. Sodium 133. Magnesium 1.6. 06/11/2023 Patient is evaluated today resting in bed. PT/OT following. He is status post lap chas. White count continues to elevate this could be reactive to surgery however will rule out other source of infection. Blood culture is negative so far. Will check urinalysis and also chest xray. Patient has poor oral intake although today he does state he ate about 50% of breakfast. 06/12/2023 Patient is evaluated today resting in bed. Has generalized weakness throughout he is work with physical therapy. He requires 24/7 care and plans for return to [facility] on discharge. He is postoperative day #2 laproscopic cholecystectomy. He reports some mild abominal discomfort. His abdominal sounds today are hypoactive no bowel movement yet. He is on lactulose. He is confused today. He is asking for his beer. Patient having intermittent episodes of tachycardia. He is receiving normal saline at 100. His diet is fair. Labs today showing white count 13.43, hgb 9.6, sodium 137, potassium 3.5, BUN 7, creatinine 0.28. Procalcitonin level 0.11. He was having low urine output overnight was given a fluid bolus and started on flomax, urine output has increased. Review of Systems Constitutional: Denied any fatigue denied any fever. Cardio vascular: denied any chest pain, palpitations Gastrointestinal: denied any nausea, vomiting, diarrhea Pulmonary: Reports shortness of breath cough Neurologic denied any new focal deficits Reports weakness. All inpatient medications were reviewed and appropriate changes in these medications as dictated in the interval history and assessment and plan. PHYSICAL EXAMINATION: GENERAL: The patient is alert and oriented x2, not in any acute distress. Well developed, well nourished. Thin built. HEENT: Pupils are round and equally reacting to light. EOMI. No scleral icterus. No conjunctival pallor. Normocephalic, atraumatic. No pharyngeal erythema. No thyromegaly. CARDIOVASCULAR: S1 and S2 present. No murmurs, rubs, or gallops. PULMONARY: Chest is clear to auscultation, no wheezing or crackles. ABDOMEN: Soft, nontender, nondistended, normoactive bowel sounds. No palpable organomegaly. MUSCULOSKELETAL: No joint swelling or deformity. EXTREMITIES: No cyanosis, clubbing, no pedal edema NEUROLOGICAL: Diffuse weakness no focal deficits. SKIN: No rashes. Assessment -Leukocytosis and lactic acidosis started on empiric antibiotics, source of infection not clear possibly acute cholecystitis due to the gallbladder wall thickening noted on imaging patient is status post lap chas. -EGD reveals esophagitis and antral gastritis -Acute hypoxic respiratory failure under investigation. -Hyponatremia, hypovolemic resolved with IV fluids -Hypokalemia from poor oral intake -Elevated D Dimer rule out PE, CTA pending -Hypomagnesemia supplemented -Hyperlipidemia -Hypertension -Moderate protein calorie malnutrition -COPD/asthma with no acute exacerbation GI prophylaxis DVT prophylaxis Plan Continue on empiric antibiotics, ID following General surgery consultation patient is status post laproscopic cholecystectomy Pending CTA rule out PE for the elevated D Dimer continue on oxygen support as needed, duonebs PRN on board. Continue IV fluids, patient was started on flomax and urine output is increased. PT/OT following Repeat labs in AM The impression and plan of care has been dictated by Maria D Maxwell Nurse Practitioner as directed. Dr. Bella MD I have performed a history and physical examination and medical decision making of this patient, discussed the same with the dictator, and agree with the dictators assessment and plan as written, documented as a scribe. Based on total visit time, I have performed more than 50% of this visit. Objective - Vital Signs Vital signs: Vital Signs Temp 97.6 F 06/12/23 14:17 Pulse 120 H 06/12/23 14:17 Resp 20 06/12/23 14:17 BP 103/64 06/12/23 14:17 Pulse Ox 93 L 06/12/23 14:17 FiO2 Intake & Output 06/11/23 06/12/23 06/12/23 18:59 06:59 18:59 Intake Total 159 236 Output Total 183 350 Balance 159 -183 -114 Weight 40.823 kg Intake: Oral 159 236 Output: Urine 350 Post Void Residual 183 Other: Voiding Method Diaper Diaper Urinal Diaper # Voids 0 1 # Bowel Movements 1 - Labs CBC & Chem 7: 06/12/23 06:06 06/12/23 06:06 Labs: Abnormal Lab Results - Last 24 Hours (Table) 06/12/23 06/12/23 06/12/23 Range/Units 00:37 06:06 06:06 WBC 13.43 H (4.50-10.00) X 10*3/uL RBC 3.38 L (4.40-5.60) X 10*6/uL Hgb 9.6 L (13.0-17.0) d/dL Hct 30.9 L (39.6-50.0) % MCHC 31.1 L (32.0-37.0) d/dL RDW 15.9 H (11.5-14.5) % MPV 9.4 L (9.5-12.2) FL Neutrophils # 10.39 H (1.80-7.70) X 10*3/uL Eosinophils # 0.48 H (0.04-0.35) X 10*3/uL Chloride 111 H (98-107) mmol/L Carbon Dioxide 21 L (22-30) mmol/L BUN 7 L (9-20) mg/dL Creatinine 0.28 L (0.66-1.25) mg/dL Glucose 116 H (74-99) mg/dL Calcium 7.1 L (8.4-10.2) mg/dL Procalcitonin 0.11 H (0.02-0.09) ng/mL Microbiology - Last 24 Hours (Table) 06/06/23 00:32 Blood Culture - Final Blood Assessment and Plan Time with Patient: Less than 30
--- NOTE | 2023-06-12 15:41 | CT ---
EXAMINATION TYPE: CT chest angio for PE DATE OF EXAM: 06/12/2023 COMPARISON: Radiograph 06/11/2023 HISTORY: 63-year-old male shortness of breath, Elevated D Dimer TECHNIQUE: Contiguous axial scanning of the chest performed with IV Contrast, patient injected with 1 00mL mL of Isovue 370. Coronal/sagittal MIP reconstructions performed. CT DLP: 194.20 mGycm Automated exposure control for dose reduction was used. FINDINGS: Heart is overall normal size but with moderate anterior pericardial effusion measuring 1.2 cm thick. LAD and circumflex coronary calcification. Aorta normal caliber with mild atherosclerotic arch calcification present in the chart. Branching heidi brandyn. There is mild generalized anasarca unchanged. No thoracic lymphadenopathy by CT size criteria. Satisfactory opacification of the pulmonary arterial system without evidence for pulmonary embolus. Moderate bilateral pleural effusions with prominent adjacent atelectasis and/or consolidation. Atelec tasis is favored. Background moderate emphysema. Septal lines in the upper lungs. Visualized upper abdomen shows mild perihepatic ascites. Bones: DISH in the lower thoracic spine. IMPRESSION: 0. NO EVIDENCE FOR PULMONARY EMBOLUS. 1. GENERALIZED ANASARCA CHANGE WITH SMALL TO MODERATE BILATERAL PLEURAL EFFUSIONS AND UPPER LUNG SEPT AL LINES. CORRELATE FOR FLUID OVERLOAD STATE AND PULMONARY VASCULAR CONGESTION. 2. BACKGROUND COPD WITH MODERATE EMPHYSEMA. 3. Moderate sized anterior pericardial effusion measuring 1.2 cm thick. 4. Mild abnormal, perihepatic ascites in the visualized upper abdomen.
--- NOTE | 2023-06-12 17:01 | P.PN ---
Subjective Progress Note Date: 06/12/23 Principal diagnosis: Leukocytosis possible cholecystitis Patient is a 63-year-old male with a past medical history significant for [place] and memory impairment patient is a local [facility] resident patient has been sent to the ER as the patient was noticed to be cold , patient on presentation the hospital did have elevated white count, patient did have severe abdominal pelvis because of his abdominal pain and tenderness with concern for tinnitus and possible cholecystitis. Patient is status post EGD on 06/09/2023 with mild gastritis, Patient is s/p cholecystectomy completed on 06/10/2023. On today's evaluation that is 06/12/2023, the patient remains to be afebrile the patient is breathing comfortably on room air without need for supplemental oxygen, the patient denies chest pain, shortness of breath or cough, patient denies nausea/vomiting , no diarrhea and no abdominal pain Patient white count down to 13.43, creatinine is 0.28 culture negative so far. Objective - Vital Signs Vital signs: Vital Signs Temp 97.5 F L 06/12/23 07:40 Pulse 96 06/12/23 07:40 Resp 16 06/12/23 07:40 BP 114/67 06/12/23 07:40 Pulse Ox 95 06/12/23 09:00 FiO2 Intake & Output 06/11/23 06/12/23 06/12/23 18:59 06:59 18:59 Intake Total 159 118 Output Total 183 Balance 159 -183 118 Weight 40.823 kg Intake: Oral 159 118 Output: Post Void Residual 183 Other: Voiding Method Diaper Diaper Urinal Diaper # Voids 0 1 - Exam GENERAL DESCRIPTION: An elderly male lying in bed in no distress RESPIRATORY SYSTEM: Unlabored breathing , decreased breath sounds at bases HEART: S1 S2 regular rate and rhythm , ABDOMEN: Soft , no tenderness EXTREMITIES: No edema feet - Labs CBC & Chem 7: 06/12/23 06:06 06/12/23 06:06 Labs: Abnormal Lab Results - Last 24 Hours (Table) 06/11/23 06/12/23 06/12/23 Range/Units 12:35 00:37 06:06 WBC (4.50-10.00) X 10*3/uL RBC (4.40-5.60) X 10*6/uL Hgb (13.0-17.0) d/dL Hct (39.6-50.0) % MCHC (32.0-37.0) d/dL RDW (11.5-14.5) % MPV (9.5-12.2) FL Neutrophils # (1.80-7.70) X 10*3/uL Eosinophils # (0.04-0.35) X 10*3/uL D-Dimer 1.45 H (<0.60) mg/L FEU Chloride 111 H (98-107) mmol/L Carbon Dioxide 21 L (22-30) mmol/L BUN 7 L (9-20) mg/dL Creatinine 0.28 L (0.66-1.25) mg/dL Glucose 116 H (74-99) mg/dL Calcium 7.1 L (8.4-10.2) mg/dL Procalcitonin 0.11 H (0.02-0.09) ng/mL 06/12/23 Range/Units 06:06 WBC 13.43 H (4.50-10.00) X 10*3/uL RBC 3.38 L (4.40-5.60) X 10*6/uL Hgb 9.6 L (13.0-17.0) d/dL Hct 30.9 L (39.6-50.0) % MCHC 31.1 L (32.0-37.0) d/dL RDW 15.9 H (11.5-14.5) % MPV 9.4 L (9.5-12.2) FL Neutrophils # 10.39 H (1.80-7.70) X 10*3/uL Eosinophils # 0.48 H (0.04-0.35) X 10*3/uL D-Dimer (<0.60) mg/L FEU Chloride (98-107) mmol/L Carbon Dioxide (22-30) mmol/L BUN (9-20) mg/dL Creatinine (0.66-1.25) mg/dL Glucose (74-99) mg/dL Calcium (8.4-10.2) mg/dL Procalcitonin (0.02-0.09) ng/mL Assessment and Plan (1) Cholecystitis Current Visit: Yes Status: Acute Code(s): K81.9 - CHOLECYSTITIS, UNSPECIFIED SNOMED Code(s): 53585521 (2) Leukocytosis Current Visit: Yes Status: Acute Code(s): D72.829 - ELEVATED WHITE BLOOD CELL COUNT, UNSPECIFIED SNOMED Code(s): 271323026 Plan: 1patient with a leukocytosis in this patient who is [facility] resident sent to the ER for nonspecific symptoms patient complaining of some cramps in lower abdominal area the patient was noted to be slightly tender on clinic examination also have elevated lactic acid likely abdominal source 2- CT of abdominal pelvis with contrast suggestive of duodenitis and possible cholecystitis Gen. surgery see the patient s/p cholecystectomy on 06/10/23 3Patient to continue with the Zosyn and hopefully transition to oral antibiotics on discharge Dictation was produced using [employer] dictation software. please excuse any grammatical, word or spelling errors. Time with Patient: Less than 30
[2023-06-12] MEDS: MIRTAZAPINE 15 MG TAB PO SCH (17:49)
[2023-06-12] MEDS: ATORVASTATIN 40 MG TAB PO SCH (22:10)
[2023-06-13] MEDS: PIPERACILLIN-TAZOBACTAM 3.375 GM in SODIUM CHLORIDE 0.9% 100 ML IVPB SCH ×2 (08:25→17:44)
[2023-06-13] MEDS: IPRATROPIUM-ALBUTEROL 3 ML NEB INHALATION SCH ×2 (08:52→20:25)
[2023-06-13] MEDS: BUDESONIDE 0.5 MG/2 ML NEBU INHALATION SCH ×2 (08:52→20:25)
[2023-06-13 09:38] LABS: Basophils # (A) 0.05 X 10*3/uL (0.00-0.10); Basophils % (A) 0.4 %; Eosinophils # (A) 0.66 X 10*3/uL (0.04-0.35); Eosinophils % (A) 4.7 %; HCT 29.2 % (39.6-50.0); HGB 8.9 d/dL (13.0-17.0); Lymphocytes # (A) 1.83 X 10*3/uL (0.90-5.00); MCH 28.4 pg (27.0-32.0); MCHC 30.5 d/dL (32.0-37.0); MCV 93.3 FL (80.0-97.0); Mean Platelet Volume 9.5 FL (9.5-12.2); Monocytes # (A) 0.97 X 10*3/uL (0.20-1.00); Monocytes % (A) 6.9 %; NRBC Per 100 WBC 0.02 X 10*3/uL (0.00-0.01); Neutrophils # (A) 10.32 X 10*3/uL (1.80-7.70); Neutrophils % (A) 73.4 %; Platelet Count 319 X 10*3/uL (140-440); RBC 3.13 X 10*6/uL (4.40-5.60); RDW 16.4 % (11.5-14.5); WBC 14.05 X 10*3/uL (4.50-10.00)
[2023-06-13] MEDS ORDERED: FUROSEMIDE 10 MG/ML 2 ML VIAL IV ONE (09:45)
[2023-06-13 09:47] LABS: BUN/Creat Ratio 17.67 Ratio (12.00-20.00); Blood Urea Nitrogen 5.3 mg/dL (9.0-27.0); Calcium 7.4 mg/dL (8.7-10.3); Carbon Dioxide 20.2 mmol/L (21.6-31.8); Chloride 109 mmol/L (96-109); Glucose 99 mg/dL (70-110); Potassium 4.2 mmol/L (3.5-5.5); Sodium 136 mmol/L (135-145)
[2023-06-13] MEDS: LACTULOSE 20 GM/30 ML CUP PO SCH ×2 (10:46→19:59)
[2023-06-13] MEDS: MULTIVITAMINS, THERA 1 EACH TAB PO SCH (10:46)
[2023-06-13] MEDS: FOLIC ACID 1 MG TAB PO SCH (10:47)
[2023-06-13] MEDS: TAMSULOSIN 0.4 MG CAP.ER.24H PO SCH (10:47)
[2023-06-13] MEDS: MIDODRINE 5 MG TAB PO SCH ×3 (10:47→17:44)
[2023-06-13] MEDS: POTASSIUM CHLORIDE ER 20 MEQ TAB.ER PO SCH (10:47)
[2023-06-13] MEDS: PANTOPRAZOLE 40 MG/10 ML VIAL IVP SCH (10:47)
[2023-06-13] MEDS: DIVALPROEX ER 250 MG TAB.ER.24H PO SCH (10:47)
[2023-06-13] MEDS: ENOXAPARIN 40 MG/0.4 ML SYRINGE SQ SCH (10:48)
[2023-06-13] MEDS: THIAMINE 100 MG TAB PO SCH (10:48)
--- NOTE | 2023-06-13 12:49 | P.PN ---
Subjective Progress Note Date: 06/13/23 Principal diagnosis: Leukocytosis possible cholecystitis Patient is a 63-year-old male with a past medical history significant for [place] and memory impairment patient is a local group home resident patient has been sent to the ER as the patient was noticed to be cold , patient on presentation the hospital did have elevated white count, patient did have severe abdominal pelvis because of his abdominal pain and tenderness with concern for tinnitus and possible cholecystitis. Patient is status post EGD on 06/09/2023 with mild gastritis, Patient is s/p cholecystectomy completed on 06/10/2023. On today's evaluation that is 06/13/2023, the patient denies any fever or any chills, the patient is breathing comfortably on room air , the patient denies chest pain, shortness of breath and no significant cough, patient denies abdominal pain, no nausea/vomiting , patient is having some loose stool however the patient is getting lactulose per pt nurse Patient white count is slightly up to 14.05, creatinine is 0.28 culture negative so far. Objective - Vital Signs Vital signs: Vital Signs Temp 97.8 F 06/13/23 07:40 Pulse 100 06/13/23 09:06 Resp 16 06/13/23 07:40 BP 118/77 06/13/23 07:40 Pulse Ox 94 L 06/13/23 08:52 FiO2 Intake & Output 06/12/23 06/13/23 06/13/23 18:59 06:59 18:59 Intake Total 354 Output Total 550 200 Balance -196 -200 Weight 40.823 kg Intake: Oral 354 Output: Urine 550 200 Other: Voiding Method Urinal Urinal Diaper Diaper # Voids 1 2 # Bowel Movements 1 1 - Exam GENERAL DESCRIPTION: An elderly male lying in bed in no distress RESPIRATORY SYSTEM: Unlabored breathing , decreased breath sounds at bases HEART: S1 S2 regular rate and rhythm , ABDOMEN: Soft , no tenderness EXTREMITIES: No edema feet - Labs CBC & Chem 7: 06/13/23 05:44 06/13/23 05:44 Labs: Abnormal Lab Results - Last 24 Hours (Table) 06/12/23 06/13/23 06/13/23 Range/Units 14:32 05:44 05:44 WBC 14.05 H (4.50-10.00) X 10*3/uL RBC 3.13 L (4.40-5.60) X 10*6/uL Hgb 8.9 L (13.0-17.0) d/dL Hct 29.2 L (39.6-50.0) % MCHC 30.5 L (32.0-37.0) d/dL RDW 16.4 H (11.5-14.5) % Neutrophils # 10.32 H (1.80-7.70) X 10*3/uL Eosinophils # 0.66 H (0.04-0.35) X 10*3/uL NRBC/100 WBC Diff 0.02 H (0.00-0.01) X 10*3/uL Carbon Dioxide 20.2 L (21.6-31.8) mmol/L BUN 5.3 L (9.0-27.0) mg/dL Creatinine 0.3 L (0.6-1.5) mg/dL Calcium 7.4 L (8.7-10.3) mg/dL Urine Protein Trace H (Negative) Urine Ketones Trace H (Negative) Microbiology - Last 24 Hours (Table) 06/06/23 00:32 Blood Culture - Final Blood Assessment and Plan (1) Cholecystitis Current Visit: Yes Status: Acute Code(s): K81.9 - CHOLECYSTITIS, UNSPECIFIED SNOMED Code(s): 35889835 (2) Leukocytosis Current Visit: Yes Status: Acute Code(s): D72.829 - ELEVATED WHITE BLOOD CELL COUNT, UNSPECIFIED SNOMED Code(s): 364354452 Plan: 1patient with a leukocytosis in this patient who is group home resident sent to the ER for nonspecific symptoms patient complaining of some cramps in lower abdominal area the patient was noted to be slightly tender on clinic examination also have elevated lactic acid likely abdominal source 2- CT of abdominal pelvis with contrast suggestive of duodenitis and possible cholecystitis Gen. surgery see the patient s/p cholecystectomy on 06/10/23 3Patient is afebrile however did have a worsening of his white count with the diarrhea which could be related to lactulose however C. diff not into excluded keeping in mind his elevated white count we will check a stool for C. diff and treat if positive 4patient to continue with the Zosyn and add Diflucan and repeat CBC with a.m. lab Dictation was produced using [employer] software. please excuse any grammatical, word or spelling errors. Time with Patient: Less than 30
--- NOTE | 2023-06-13 13:30 | P.PN ---
Subjective Progress Note Date: 06/13/23 Patient is evaluated today family at bedside. Patient no longer reporting abdominal pain and no tenderness on palpation however abdominal pelvis CT does reveal some wall thickening and contracted gallbladder. Due tot he leukocytosis general surgery was consulted for evaluation. Remains on IV zosyn empirically. ID following. Patients family reports he has poor diet and has lost weight since being at the [facility]. 06/09/2023 Patient evaluated today resting in bed. No acute complaints no abdominal pain, no arm pain. Underwent EGD showing antral gastritis and mild esophagitis. Remains on LR at 100 mls/hr. Scheduled for lap chas tomorrow this was discussed with the public guardian jessica over the phone. 06/10/2023 Patient is evaluated today resting in bed. He is scheduled to undergo laproscopic cholecystectomy today. White count 14.8 today. Sodium 133. Magnesium 1.6. 06/11/2023 Patient is evaluated today resting in bed. PT/OT following. He is status post lap chas. White count continues to elevate this could be reactive to surgery however will rule out other source of infection. Blood culture is negative so far. Will check urinalysis and also chest xray. Patient has poor oral intake although today he does state he ate about 50% of breakfast. 06/12/2023 Patient is evaluated today resting in bed. Has generalized weakness throughout he is work with physical therapy. He requires 24/7 care and plans for return to [facility]CF on discharge. He is postoperative day #2 laproscopic cholecystectomy. He reports some mild abominal discomfort. His abdominal sounds today are hypoactive no bowel movement yet. He is on lactulose. He is confused today. He is asking for his beer. Patient having intermittent episodes of tachycardia. He is receiving normal saline at 100. His diet is fair. Labs today showing white count 13.43, hgb 9.6, sodium 137, potassium 3.5, BUN 7, creatinine 0.28. Procalcitonin level 0.11. He was having low urine output overnight was given a fluid bolus and started on flomax, urine output has increased. 06/13/2023 Patient is evaluated today resting in bed. His mentation is improved he is currently alert 2 he is slightly confused and his location. He has plans to return to the ECF on discharge. He is postoperative day #3 laparoscopic cholecystectomy. He is on IV Zosyn. ID is following this patient closely. He had a chest CT angiography completed due to elevated d-dimer. There was no evidence for pulmonary embolism there was generalized anasarca changes thought to moderate bilateral pleural effusions and upper lung septal lines correlate for fluid overload state and pulmonary vascular congestion. There is background COPD with moderate emphysema. There is a moderate-sized anterior pericardial effusion measuring 1.27 m take. There is mild abnormal perihepatic ascites and the visualized upper abdomen. Patient states he discontinued his proBNP was mildly elevated at 1200 however will give patient a small dose of IV Lasix 20 mg. White count 0.05, hemoglobin 8.9, sodium 136, potassium 4.2, BUN 5.3, creatinine 0.3. Urinalysis is unremarkable. Review of Systems Constitutional: Denied any fatigue denied any fever. Cardio vascular: denied any chest pain, palpitations Gastrointestinal: denied any nausea, vomiting, diarrhea Pulmonary: Reports shortness of breath cough Neurologic denied any new focal deficits Reports weakness. All inpatient medications were reviewed and appropriate changes in these medications as dictated in the interval history and assessment and plan. PHYSICAL EXAMINATION: GENERAL: The patient is alert and oriented x2, not in any acute distress. Well developed, well nourished. Thin built. HEENT: Pupils are round and equally reacting to light. EOMI. No scleral icterus. No conjunctival pallor. Normocephalic, atraumatic. No pharyngeal erythema. No thyromegaly. CARDIOVASCULAR: S1 and S2 present. No murmurs, rubs, or gallops. PULMONARY: Chest is clear to auscultation, no wheezing or crackles. ABDOMEN: Soft, nontender, nondistended, normoactive bowel sounds. No palpable organomegaly. Post surgical abdomen with mild tenderness and is slightly distended. MUSCULOSKELETAL: No joint swelling or deformity. EXTREMITIES: No cyanosis, clubbing, no pedal edema NEUROLOGICAL: Diffuse weakness no focal deficits. SKIN: No rashes. Assessment -Leukocytosis and lactic acidosis started on empiric antibiotics, source of infe ction not clear possibly acute cholecystitis due to the gallbladder wall thickening noted on imaging patient is status post lap chas. -EGD reveals esophagitis and antral gastritis -Pleural effusions bilaterally and pericardial effusion likely a volume overload state echocardiogram is currently pending and patient will be started on IV Lasix -Acute hypoxic respiratory failure under investigation. -Hyponatremia, hypovolemic resolved with IV fluids -Hypokalemia from poor oral intake -Elevated D Dimer rule out PE, CTA pending -Hypomagnesemia supplemented -Hyperlipidemia -Hypertension -Moderate protein calorie malnutrition -COPD/asthma with no acute exacerbation GI prophylaxis DVT prophylaxis Plan Continue on empiric antibiotics, ID following General surgery consultation patient is status post laproscopic cholecystectomy *IV Lasix 20 mg every 12 and echocardiogram is ordered IV fluids have been discontinued recommended bladder scan the patient every 6 hours and monitor for urinary retention and straight cath per protocol PT/OT following Repeat labs in AM The impression and plan of care has been dictated by Maria D Maxwell Nurse Practitioner as directed. Dr. Bella MD I have performed a history and physical examination and medical decision making of this patient, discussed the same with the dictator, and agree with the dictators assessment and plan as written, documented as a scribe. Based on total visit time, I have performed more than 50% of this visit. Objective - Vital Signs Vital signs: Vital Signs Temp 97.8 F 06/13/23 07:40 Pulse 100 06/13/23 09:06 Resp 16 06/13/23 07:40 BP 118/77 06/13/23 07:40 Pulse Ox 94 L 06/13/23 08:52 FiO2 Intake & Output 06/12/23 06/13/23 06/13/23 18:59 06:59 18:59 Intake Total 354 Output Total 550 200 Balance -196 -200 Weight 40.823 kg Intake: Oral 354 Output: Urine 550 200 Other: Voiding Method Urinal Urinal Diaper Diaper # Voids 1 2 # Bowel Movements 1 1 - Labs CBC & Chem 7: 06/13/23 05:44 06/13/23 05:44 Labs: Abnormal Lab Results - Last 24 Hours (Table) 06/12/23 06/13/23 06/13/23 Range/Units 14:32 05:44 05:44 WBC 14.05 H (4.50-10.00) X 10*3/uL RBC 3.13 L (4.40-5.60) X 10*6/uL Hgb 8.9 L (13.0-17.0) d/dL Hct 29.2 L (39.6-50.0) % MCHC 30.5 L (32.0-37.0) d/dL RDW 16.4 H (11.5-14.5) % Neutrophils # 10.32 H (1.80-7.70) X 10*3/uL Eosinophils # 0.66 H (0.04-0.35) X 10*3/uL NRBC/100 WBC Diff 0.02 H (0.00-0.01) X 10*3/uL Carbon Dioxide 20.2 L (21.6-31.8) mmol/L BUN 5.3 L (9.0-27.0) mg/dL Creatinine 0.3 L (0.6-1.5) mg/dL Calcium 7.4 L (8.7-10.3) mg/dL Urine Protein Trace H (Negative) Urine Ketones Trace H (Negative) Microbiology - Last 24 Hours (Table) 06/06/23 00:32 Blood Culture - Final Blood Assessment and Plan Time with Patient: Less than 30
--- NOTE | 2023-06-13 13:40 | P.PN ---
Subjective Patient seen and evaluated at bedside. Confused/aggressive. Refused to use incentive spirometer discuss patient with nurse states he is at his baseline of alertness Objective - Vital Signs Vital signs: Vital Signs Temp 97.8 F 06/13/23 07:40 Pulse 100 06/13/23 09:06 Resp 16 06/13/23 07:40 BP 118/77 06/13/23 07:40 Pulse Ox 94 L 06/13/23 08:52 FiO2 Intake & Output 06/12/23 06/13/23 06/13/23 18:59 06:59 18:59 Intake Total 354 Output Total 550 200 Balance -196 -200 Weight 40.823 kg Intake: Oral 354 Output: Urine 550 200 Other: Voiding Method Urinal Urinal Diaper Diaper # Voids 1 2 # Bowel Movements 1 1 - Exam Gen. anxious/combative Cardiovascular tachycardic Pulmonary minimal labored breathing Abdomen soft nontender nondistended no guarding or rebound tenderness surgical incisions look good - Labs CBC & Chem 7: 06/13/23 05:44 06/13/23 05:44 Labs: Abnormal Lab Results - Last 24 Hours (Table) 06/12/23 06/13/23 06/13/23 Range/Units 14:32 05:44 05:44 WBC 14.05 H (4.50-10.00) X 10*3/uL RBC 3.13 L (4.40-5.60) X 10*6/uL Hgb 8.9 L (13.0-17.0) d/dL Hct 29.2 L (39.6-50.0) % MCHC 30.5 L (32.0-37.0) d/dL RDW 16.4 H (11.5-14.5) % Neutrophils # 10.32 H (1.80-7.70) X 10*3/uL Eosinophils # 0.66 H (0.04-0.35) X 10*3/uL NRBC/100 WBC Diff 0.02 H (0.00-0.01) X 10*3/uL Carbon Dioxide 20.2 L (21.6-31.8) mmol/L BUN 5.3 L (9.0-27.0) mg/dL Creatinine 0.3 L (0.6-1.5) mg/dL Calcium 7.4 L (8.7-10.3) mg/dL Urine Protein Trace H (Negative) Urine Ketones Trace H (Negative) Microbiology - Last 24 Hours (Table) 06/06/23 00:32 Blood Culture - Final Blood Assessment and Plan Assessment: 63-year-old male status post cholecystectomy Images reviewed demonstrating bilateral pulmonary effusions lab values reviewed patient has slightly increasing white count I contributed this to his pulmonary status. May benefit from Lasix versus drainage.
[2023-06-13] MEDS: FLUCONAZOLE 100 MG TAB PO SCH (14:12)
[2023-06-13] MEDS: MIRTAZAPINE 15 MG TAB PO SCH (17:44)
[2023-06-13] MEDS: FUROSEMIDE 10 MG/ML 2 ML VIAL IV SCH (19:59)
[2023-06-13] MEDS: ATORVASTATIN 40 MG TAB PO SCH (19:59)
[2023-06-14] MEDS: PIPERACILLIN-TAZOBACTAM 3.375 GM in SODIUM CHLORIDE 0.9% 100 ML IVPB SCH ×4 (00:37→23:41)
[2023-06-14] MEDS: FOLIC ACID 1 MG TAB PO SCH (08:47)
[2023-06-14] MEDS: MULTIVITAMINS, THERA 1 EACH TAB PO SCH (08:47)
[2023-06-14] MEDS: POTASSIUM CHLORIDE ER 20 MEQ TAB.ER PO SCH (08:47)
[2023-06-14] MEDS: MIDODRINE 5 MG TAB PO SCH ×3 (08:47→18:23)
[2023-06-14] MEDS: THIAMINE 100 MG TAB PO SCH (08:47)
[2023-06-14] MEDS: DIVALPROEX ER 250 MG TAB.ER.24H PO SCH (08:47)
[2023-06-14] MEDS: TAMSULOSIN 0.4 MG CAP.ER.24H PO SCH (08:47)
[2023-06-14] MEDS: LACTULOSE 20 GM/30 ML CUP PO SCH ×2 (08:48→21:34)
[2023-06-14] MEDS: FLUCONAZOLE 100 MG TAB PO SCH (08:48)
[2023-06-14] MEDS: PANTOPRAZOLE 40 MG/10 ML VIAL IVP SCH (08:48)
[2023-06-14] MEDS: ENOXAPARIN 40 MG/0.4 ML SYRINGE SQ SCH (08:48)
[2023-06-14] MEDS: FUROSEMIDE 10 MG/ML 2 ML VIAL IV SCH ×2 (08:48→21:34)
[2023-06-14] MEDS: BUDESONIDE 0.5 MG/2 ML NEBU INHALATION SCH ×2 (09:53→21:11)
[2023-06-14] MEDS: IPRATROPIUM-ALBUTEROL 3 ML NEB INHALATION SCH ×2 (09:53→21:11)
--- NOTE | 2023-06-14 11:45 | P.PN ---
Subjective Progress Note Date: 06/14/23 Principal diagnosis: Cholecystitis Patient seems to be less use today. Denies pain. Tolerating diet. Objective - Vital Signs Vital signs: Vital Signs Temp 97.9 F 06/14/23 08:19 Pulse 100 06/14/23 10:05 Resp 16 06/14/23 08:19 BP 108/69 06/14/23 08:19 Pulse Ox 92 L 06/14/23 08:19 FiO2 Intake & Output 06/13/23 06/14/23 06/14/23 18:59 06:59 18:59 Intake Total 177 70 Balance 177 70 Intake: IV 20 0.9 KVO 20 Oral 177 50 Other: Voiding Method Urinal Urinal Diaper Diaper # Voids 1 2 # Bowel Movements 1 1 - Exam Abdomen: Soft, mild tenderness, incisions clean and dry - Labs CBC & Chem 7: 06/13/23 05:44 06/13/23 05:44 Assessment and Plan (1) Cholecystitis Narrative/Plan: Patient doing well at this time. Continue diet as tolerated. Ambulate. Current Visit: Yes Status: Acute Code(s): K81.9 - CHOLECYSTITIS, UNSPECIFIED SNOMED Code(s): 32195598
--- NOTE | 2023-06-14 12:00 | CA ---
Transthoracic Echo Report Name: Sebastien Stevens Age: 63 Gender: M : 1960 Exam Date: 06/13/2023 13:37 Exam Location: [place] [facility] Ht (in): 67 Wt (lb): 90 Ordering Physician: Maria D Maxwell Attending/Referring Phys: Hans HERNANDEZ Scale Operator Ana Hayes RDCS Procedure CPT: Indications: pericardial effusion Cardiac Hx: Technical Quality: Technically difficult study Contrast 1: Lumason Total Dose (mL): 4 Contrast 2: Total Dose (mL): MEASUREMENTS (Male / Female) Normal Values 2D ECHO LV Diastolic Diameter PLAX 3.3 cm 4.2 - 5.9 / 3.9 - 5.3 cm LV Systolic Diameter PLAX 2.5 cm IVS Diastolic Thickness 1.0 cm 0.6 - 1.0 / 0.6 - 0.9 cm LVPW Diastolic Thickness 1.1 cm 0.6 - 1.0 / 0.6 - 0.9 cm LV Relative Wall Thickness 0.7 RV Internal Dim ED PLAX 2.3 cm M-MODE Aortic Root Diameter MM 3.2 cm LA Systolic Diameter MM 3.8 cm LA Ao Ratio MM 1.2 DOPPLER AV Peak Velocity 116.7 cm/s AV Peak Gradient 5.4 mmHg AV Mean Velocity 70.6 cm/s AV Mean Gradient 2.5 mmHg AV Velocity Time Integral 21.0 cm LVOT Peak Velocity 97.0 cm/s LVOT Peak Gradient 3.8 mmHg LVOT Velocity Time Integral 21.0 cm TR Peak Velocity 255.1 cm/s TR Peak Gradient 26.0 mmHg Right Ventricular Systolic Press 29.6 mmHg FINDINGS Left Ventricle Left ventricular cavity size normal. Left ventricular wall thickness normal. Normal left ventricular systolic function with no obvious regional wall motion abnormalities. Left ventricular ejection fraction is estimated at 55-60 %. Right Ventricle Not well visualized Right Atrium Not well visualized Left Atrium Not well visualized Mitral Valve Structurally normal mitral valve. Mitral valve not well visualized. Aortic Valve Aortic valve not well visualized. No aortic valve stenosis or regurgitation. Tricuspid Valve Structurally normal tricuspid valve. Mild tricuspid regurgitation. Pulmonic Valve Trace pulmonic regurgitation. Pericardium Small pericardial effusion. Aorta Normal size aortic root and proximal ascending aorta. CONCLUSIONS Technically difficult study. Afib RVR Left ventricular ejection fraction is estimated at 55-60 %. Mitral valve not well visualized but does not appear to have significant MR or MS Aortic valve not well visualized but no evidence of significant or AR on color Doppler Small pericardial effusion No prior echocardiogram to compare within database Previewed by: Dr Stanley Mcelryo (Electronically Signed) Final Date: 14 June 2023 11:59
[2023-06-14 13:24] LABS: Basophils # (A) 0.05 X 10*3/uL (0.00-0.10); Basophils % (A) 0.4 %; Eosinophils # (A) 0.73 X 10*3/uL (0.04-0.35); Eosinophils % (A) 5.6 %; HGB 8.8 d/dL (13.0-17.0); Lymphocytes % (A) 14.5 %; MCH 29.1 pg (27.0-32.0); MCHC 31.4 d/dL (32.0-37.0); MCV 92.7 FL (80.0-97.0); Mean Platelet Volume 10.2 FL (9.5-12.2); Monocytes # (A) 0.81 X 10*3/uL (0.20-1.00); Monocytes % (A) 6.2 %; NRBC Per 100 WBC 0 X 10*3/uL (0.00-0.01); Neutrophils # (A) 9.42 X 10*3/uL (1.80-7.70); Neutrophils % (A) 71.9 %; Platelet Count 288 X 10*3/uL (140-440); RBC 3.02 X 10*6/uL (4.40-5.60); RDW 16.6 % (11.5-14.5); WBC 13.09 X 10*3/uL (4.50-10.00)
[2023-06-14 13:25] LABS: ALT 69 U/L (10-49); AST 157 U/L (14-35); Alkaline Phosphatase 243 U/L (41-126); BUN/Creat Ratio 19.67 Ratio (12.00-20.00); Blood Urea Nitrogen 5.9 mg/dL (9.0-27.0); Calcium 7.7 mg/dL (8.7-10.3); Carbon Dioxide 23.2 mmol/L (21.6-31.8); Chloride 104 mmol/L (96-109); Glucose 100 mg/dL (70-110); Potassium 3.8 mmol/L (3.5-5.5); Sodium 136 mmol/L (135-145); Total Bilirubin 0.3 mg/dL (0.3-1.2)
--- NOTE | 2023-06-14 15:26 | P.PN ---
Subjective Progress Note Date: 06/14/23 Principal diagnosis: Leukocytosis possible cholecystitis Patient is a 63-year-old male with a past medical history significant for [place] and memory impairment patient is a local [place] [facility] resident patient has been sent to the ER as the patient was noticed to be cold , patient on presentation the hospital did have elevated white count, patient did have severe abdominal pelvis because of his abdominal pain and tenderness with concern for tinnitus and possible cholecystitis. Patient is status post EGD on 06/09/2023 with mild gastritis, Patient is s/p cholecystectomy completed on 06/10/2023. On today's evaluation that is 06/14/2023, the patient remains to be afebrile, the patient is breathing comfortably on room air without the need for supplemental oxygen , the patient denies chest pain or cough, patient denies nausea/vomiting or diarrhea and denies any abdominal pain Patient white count is slightly down to 13.09, creatinine is 0.3 culture negative so far. Objective - Vital Signs Vital signs: Vital Signs Temp 97.6 F 06/14/23 13:51 Pulse 95 06/14/23 13:51 Resp 19 06/14/23 13:51 BP 100/66 06/14/23 13:51 Pulse Ox 96 06/14/23 13:51 FiO2 Intake & Output 06/13/23 06/14/23 06/14/23 18:59 06:59 18:59 Intake Total 177 70 Output Total 1000 Balance 177 70 -1000 Intake: IV 20 0.9 KVO 20 Oral 177 50 Output: Urine 1000 Other: Voiding Method Urinal Urinal Diaper Diaper # Voids 1 2 # Bowel Movements 1 1 - Exam GENERAL DESCRIPTION: An elderly male lying in bed in no distress RESPIRATORY SYSTEM: Unlabored breathing , decreased breath sounds at bases HEART: S1 S2 regular rate and rhythm , ABDOMEN: Soft , no tenderness EXTREMITIES: No edema feet - Labs CBC & Chem 7: 06/14/23 05:50 06/14/23 05:50 Labs: Abnormal Lab Results - Last 24 Hours (Table) 06/14/23 06/14/23 Range/Units 05:50 05:50 WBC 13.09 H (4.50-10.00) X 10*3/uL RBC 3.02 L (4.40-5.60) X 10*6/uL Hgb 8.8 L (13.0-17.0) d/dL Hct 28.0 L (39.6-50.0) % MCHC 31.4 L (32.0-37.0) d/dL RDW 16.6 H (11.5-14.5) % Neutrophils # 9.42 H (1.80-7.70) X 10*3/uL Eosinophils # 0.73 H (0.04-0.35) X 10*3/uL BUN 5.9 L (9.0-27.0) mg/dL Creatinine 0.3 L (0.6-1.5) mg/dL Calcium 7.7 L (8.7-10.3) mg/dL AST 157 H (14-35) U/L ALT 69 H (10-49) U/L Alkaline Phosphatase 243 H (41-126) U/L C-Reactive Protein 4.10 H (0.00-0.80) mg/dL Total Protein 4.0 L (6.2-8.2) d/dL Albumin 2.0 L (3.8-4.9) d/dL Albumin/Globulin Ratio 1.00 L (1.60-3.17) Ratio Assessment and Plan (1) Cholecystitis Current Visit: Yes Status: Acute Code(s): K81.9 - CHOLECYSTITIS, UNSPECIFIED SNOMED Code(s): 59011776 (2) Leukocytosis Current Visit: Yes Status: Acute Code(s): D72.829 - ELEVATED WHITE BLOOD CELL COUNT, UNSPECIFIED SNOMED Code(s): 248944991 Plan: 1patient with a leukocytosis in this patient who is [place] [facility] resident sent to the ER for nonspecific symptoms patient complaining of some cramps in lower abdominal area the patient was noted to be slightly tender on clinic examination also have elevated lactic acid likely abdominal source 2- CT of abdominal pelvis with contrast suggestive of duodenitis and possible cholecystitis Gen. surgery see the patient s/p cholecystectomy on 06/10/23 3Patient is afebrile and her white count is trending down well continue with the Zosyn and Diflucan and repeat CBC with a.m. lab, hopefully finishing therapy with oral antibiotics Dictation was produced using better. dictation software. please excuse any gr ammatical, word or spelling errors. Time with Patient: Less than 30
[2023-06-14] MEDS: MIRTAZAPINE 15 MG TAB PO SCH (18:23)
--- NOTE | 2023-06-14 20:20 | P.CRDCN ---
History of Present Illness Consult date: 06/14/23 History of present illness: HISTORY OF PRESENTING ILLNESS Patient is a 63-year-old male who was [facility] her [facility]. It was noticed that he had cord and mottled appearance. On admission he was noticed to be in septic shock and was being treated for sepsis. On admission he had significant leukocytosis and lactic acidosis. EGD revealed gastritis. He has also been getting IV diuretics for pleural effusion. He had a treadmill in 6 with hyponatremia and hypokalemia which were being managed with replacement. He has prior history of hypertension dyslipidemia and COPD. Patient has an advanced reactive off not being intubated and not getting chest compressions or cardioversion. Cardiology was paged because patient was noticed to be in heart rate of 200. A team was called and the patient for possible concerns of seizure but they found that patient was in tachycardic rhythm of 200. They were not able to determine the heart rhythm for which cardiology was paged. I evaluated the patient at bedside, I did recommend that patient was in ventricular tachycardia. We gave him 150 mg of amiodarone bolus and repeated once more. This broke patient's ventilator tachycardia. Patient was noticed to going to intermittent ventricular tachycardias at that point I decided to give 4 g of mid lesion sulfate and 100 mg of lidocaine. Twelve-lead ECG performed thereafter showed sinus rhythm with nonspecific diffus e ST depressions in lateral leads Post conversion to sinus rhythm blood pressure 100/66, pulse 95 Labs from today morning showed hemoglobin 8.8, WBC 13, BUN 5.9, creatinine 0.3 REVIEW OF SYSTEMS Could not be obtained as patient is somnolent PHYSICAL EXAMINATION Vital signs reviewed. Lungs: Poor inspiratory effort, mild crackles audible. Heart: Regular rate and rhythm, S1-S2, no S3, no murmur or rub. Abdomen: Soft nontender, Extremities: 1+ peripheral edema Neuro: Patient is not awake, but arousable, incoherent, ASSESSMENT Ventricular tachycardia Cardiac arrest status post return of spontaneous circulation DNR/DNI Admitted with sepsis PLAN Status post 300 mg of amiodarone, 100 mg of lidocaine, 4 g of magnesium sulfate Continue IV amiodarone drip 1 mg/h for 6 hours, Lasix was reduced to 0.5 mg If patient goes and further ventricular fibrillation, start lidocaine drip at 0.5 mg/h Obtain echocardiogram Transfer to ICU Prognsis is very guarded Past Medical History Past Medical History: Memory Impairment, Myocardial Infarction (SD) Last Myocardial Infarction Date:: . History of Any Multi-Drug Resistant Organisms: Unobtainable Smoking Status: Former smoker Past Alcohol Use History: Heavy Medications and Allergies Home Medications Medication Instructions Recorded Confirmed Type Amoxic-Pot Clav 875-125Mg 1 tab PO Q12HR 06/06/23 06/06/23 History [Augmentin 875-125] Aspirin EC [Ecotrin Low Dose] 81 mg PO DAILY 06/06/23 06/06/23 History Atorvastatin [Lipitor] 40 mg PO HS 06/06/23 06/06/23 History Budesonide [Pulmicort] 0.5 mg INHALATION RT-BID 06/06/23 06/06/23 History Divalproex ER [Depakote ER] 250 mg PO DAILY 06/06/23 06/06/23 History Folic Acid 1 mg PO DAILY 06/06/23 06/06/23 History Ipratropium-Albuterol Nebulize 3 ml INHALATION RT-BID 06/06/23 06/06/23 History [Duoneb 0.5 mg-3 mg/3 ml Soln] Lactose-Reduced Food [Ensure Plus] 1 can PO TID@0900,1300,2100 06/06/23 06/06/23 History Lactulose 20 gm PO BID 06/06/23 06/06/23 History Metoprolol Succinate (ER) [Toprol 25 mg PO DAILY 06/06/23 06/06/23 History Xl] Midodrine [ProAmatine] 5 mg PO TID@0900,1300,1800 06/06/23 06/06/23 History Mirtazapine 7.5 mg PO DAILY@1700 06/06/23 06/06/23 History Multivitamins, Thera [Multivitamin 1 tab PO DAILY 06/06/23 06/06/23 History (formulary)] Omeprazole [PriLOSEC] 20 mg PO DAILY 06/06/23 06/06/23 History Thiamine [Vitamin B-1] 100 mg PO DAILY 06/06/23 06/06/23 History Allergies Allergy/AdvReac Type Severity Reaction Status Date / Time No Known Allergies Allergy Verified 06/06/23 22:06 Physical Exam Vitals: Vital Signs Temp Pulse Pulse Resp BP Pulse Ox 06/14/23 13:51 97.6 F 95 19 100/66 96 06/14/23 10:05 100 06/14/23 09:53 100 06/14/23 08:19 97.9 F 102 H 16 108/69 92 L 06/14/23 01:23 98.3 F 114 H 17 96/64 92 L 06/13/23 20:35 108 H 06/13/23 20:25 100 Intake and Output 06/14/23 06/14/23 06/14/23 06:59 14:59 22:59 Intake Total 120 Output Total 1000 Balance -1000 120 Intake: Oral 120 Output: Urine 1000 Other: Voiding Method Urinal Urinal Diaper Diaper Results 06/14/23 05:50 06/14/23 05:50 Cardiac Enzymes 06/14/23 Range/Units 05:50 AST 157 H (14-35) U/L CBC 06/14/23 Range/Units 05:50 WBC 13.09 H (4.50-10.00) X 10*3/uL RBC 3.02 L (4.40-5.60) X 10*6/uL Hgb 8.8 L (13.0-17.0) d/dL Hct 28.0 L (39.6-50.0) % Plt Count 288 (140-440) X 10*3/uL Comprehensive Metabolic Panel 06/14/23 Range/Units 05:50 Sodium 136 (135-145) mmol/L Potassium 3.8 (3.5-5.5) mmol/L Chloride 104 (96-109) mmol/L Carbon Dioxide 23.2 (21.6-31.8) mmol/L BUN 5.9 L (9.0-27.0) mg/dL Creatinine 0.3 L (0.6-1.5) mg/dL Glucose 100 (70-110) mg/dL Calcium 7.7 L (8.7-10.3) mg/dL AST 157 H (14-35) U/L ALT 69 H (10-49) U/L Alkaline Phosphatase 243 H (41-126) U/L Total Protein 4.0 L (6.2-8.2) d/dL Albumin 2.0 L (3.8-4.9) d/dL Current Medications Generic Name Dose Route Start Last Admin Trade Name Freq PRN Reason Stop Dose Admin Acetaminophen 650 mg 06/08/23 21:19 06/08/23 23:03 Acetaminophen Tab 325 Mg Tab PO 650 mg Q6HR PRN Administration Fever and/ or Mild Pain Hydrocodone Bitart/Acetaminophen 1 each 06/12/23 13:25 06/14/23 00:42 Hydrocodone/Apap 5-325mg 1 Each Tab PO 1 each Q4HR PRN Administration Pain Albuterol/Ipratropium 3 ml 06/07/23 20:00 06/14/23 09:53 Ipratropium-Albuterol 3 Ml Neb INHALATION 3 ml RT-BID BHAVANA Administration Atorvastatin Calcium 40 mg 06/07/23 21:00 06/13/23 19:59 Atorvastatin 40 Mg Tab PO 40 mg HS BHAVANA Administration Budesonide 0.5 mg 06/07/23 20:00 06/14/23 09:53 Budesonide 0.5 Mg/2 Ml Nebu INHALATION 0.5 mg RT-BID BHAVANA Administration Divalproex Sodium 250 mg 06/08/23 09:00 06/14/23 08:47 Divalproex Er 250 Mg Tab.Er.24h PO 250 mg DAILY BHAVANA Administration Enoxaparin Sodium 40 mg 06/11/23 09:00 06/14/23 08:48 Enoxaparin 40 Mg/0.4 Ml Syringe SQ 40 mg DAILY BHAVANA Administration Fluconazole 100 mg 06/13/23 13:00 06/14/23 08:48 Fluconazole 100 Mg Tab PO 100 mg DAILY BHAVANA Administration Protocol Folic Acid 1 mg 06/08/23 09:00 06/14/23 08:47 Folic Acid 1 Mg Tab PO 1 mg DAILY BHAVANA Administration Furosemide 20 mg 06/13/23 21:00 06/14/23 08:48 Furosemide 10 Mg/Ml 2 Ml Vial IV 20 mg Q12HR BHAVANA Administration Hydromorphone HCl 1 mg 06/10/23 14:55 Hydromorphone 1 Mg/Ml 1 Ml Syringe IVP Q3HR PRN Pain Piperacillin Sod/Tazobactam 100 mls @ 25 mls/hr 06/07/23 16:00 06/14/23 15:45 Sod 3.375 gm/ Sodium Chloride IVPB 25 mls/hr Q8HR BHAVANA Administration Protocol Lactulose 20 gm 06/07/23 21:00 06/14/23 08:48 Lactulose 20 Gm/30 Ml Cup PO 20 gm BID BHAVANA Administration Midodrine 5 mg 06/07/23 13:00 06/14/23 18:23 Midodrine 5 Mg Tab PO 5 mg TID@0900,1300,1800 BHAVANA Administration Mirtazapine 7.5 mg 06/07/23 17:00 06/14/23 18:23 Mirtazapine 15 Mg Tab PO 7.5 mg DAILY@1700 BHAVANA Administration Miscellaneous Information 1 each 06/09/23 10:20 Magnesium Replacement Protocol 1 Each Misc MISCELLANE DAILY PRN Per Protocol Protocol Multivitamins 1 each 06/08/23 09:00 06/14/23 08:47 Multivitamins, Thera 1 Each Tab PO 1 each DAILY BHAVANA Administration Naloxone HCl 0.2 mg 06/07/23 03:31 Naloxone 0.4 Mg/Ml 1 Ml Vial IV Q2M PRN Opioid Reversal Pantoprazole Sodium 40 mg 06/08/23 16:30 06/14/23 08:48 Pantoprazole 40 Mg/10 Ml Vial IVP 40 mg DAILY BHAVANA Administration Potassium Chloride 20 meq 06/10/23 09:00 06/14/23 08:47 Potassium Chloride Er 20 Meq Tab.Er PO 20 meq DAILY BHAVANA Administration Tamsulosin HCl 0.4 mg 06/11/23 18:15 06/14/23 08:47 Tamsulosin 0.4 Mg Cap.Er.24h PO 0.4 mg [id number] BHAVANA Administration Thiamine HCl 100 mg 06/08/23 09:00 06/14/23 08:47 Thiamine 100 Mg Tab PO 100 mg DAILY BHAVANA Administration Intake and Output 06/14/23 06/14/23 06/14/23 06:59 14:59 22:59 Intake Total 120 Output Total 1000 Balance -1000 120 Intake: Oral 120 Output: Urine 1000 Other: Voiding Method Urinal Urinal Diaper Diaper 06/14/23 05:50 06/14/23 05:50
--- NOTE | 2023-06-14 21:15 | P.PN ---
Subjective Progress Note Date: 06/14/23 Patient is evaluated today family at bedside. Patient no longer reporting abdominal pain and no tenderness on palpation however abdominal pelvis CT does reveal some wall thickening and contracted gallbladder. Due tot he leukocytosis general surgery was consulted for evaluation. Remains on IV zosyn empirically. ID following. Patients family reports he has poor diet and has lost weight since being at the [facility]. 06/09/2023 Patient evaluated today resting in bed. No acute complaints no abdominal pain, no arm pain. Underwent EGD showing antral gastritis and mild esophagitis. Remains on LR at 100 mls/hr. Scheduled for lap chas tomorrow this was discussed with the public guardian jessica over the phone. 06/10/2023 Patient is evaluated today resting in bed. He is scheduled to undergo laproscopic cholecystectomy today. White count 14.8 today. Sodium 133. Magnesium 1.6. 06/11/2023 Patient is evaluated today resting in bed. PT/OT following. He is status post lap chas. White count continues to elevate this could be reactive to surgery however will rule out other source of infection. Blood culture is negative so far. Will check urinalysis and also chest xray. Patient has poor oral intake although today he does state he ate about 50% of breakfast. 06/12/2023 Patient is evaluated today resting in bed. Has generalized weakness throughout he is work with physical therapy. He requires 24/7 care and plans for return to [facility]CF on discharge. He is postoperative day #2 laproscopic cholecystectomy. He reports some mild abominal discomfort. His abdominal sounds today are hypoactive no bowel movement yet. He is on lactulose. He is confused today. He is asking for his beer. Patient having intermittent episodes of tachycardia. He is receiving normal saline at 100. His diet is fair. Labs today showing white count 13.43, hgb 9.6, sodium 137, potassium 3.5, BUN 7, creatinine 0.28. Procalcitonin level 0.11. He was having low urine output overnight was given a fluid bolus and started on flomax, urine output has increased. 06/13/2023 Patient is evaluated today resting in bed. His mentation is improved he is currently alert 2 he is slightly confused and his location. He has plans to return to the ECF on discharge. He is postoperative day #3 laparoscopic cholecystectomy. He is on IV Zosyn. ID is following this patient closely. He had a chest CT angiography completed due to elevated d-dimer. There was no evidence for pulmonary embolism there was generalized anasarca changes thought to moderate bilateral pleural effusions and upper lung septal lines correlate for fluid overload state and pulmonary vascular congestion. There is background COPD with moderate emphysema. There is a moderate-sized anterior pericardial effusion measuring 1.27 m take. There is mild abnormal perihepatic ascites and the visualized upper abdomen. Patient states he discontinued his proBNP was mildly elevated at 1200 however will give patient a small dose of IV Lasix 20 mg. White count 0.05, hemoglobin 8.9, sodium 136, potassium 4.2, BUN 5.3, creatinine 0.3. Urinalysis is unremarkable. 06/14/2023 Patient is evaluated today sitting up in bed. Continues on IV lasix Q12, his sodium has normalized today. 1200 mls urine output in the last 24 hours. He is breathing better today and has improved aeration. He had echocardiogram done showing afib RVR echocardiogram was done showing sinus tachycardia. He is on telemetry. There is normal LV function and also small pericardial effusion. Cardiology has been consulted for further recommendations. He reports mild abdominal pain. White count 13.09 today, hgb 8.8, sodium 136, potassium 3.8, BUN 5.9, creatinine 0.3. LFTs remain elevated. Bilirubin is normal. Review of Systems Constitutional: Reports fatigue, denied any fever. Cardio vascular: denied any chest pain, palpitations Gastrointestinal: denied any nausea, vomiting, diarrhea Pulmonary: Denies shortness of breath, denies cough Neurologic denied any new focal deficits Reports weakness. All inpatient medications were reviewed and appropriate changes in these medications as dictated in the interval history and assessment and plan. PHYSICAL EXAMINATION: GENERAL: The patient is alert and oriented x2, not in any acute distress. Well developed, well nourished. Thin built. HEENT: Pupils are round and equally reacting to light. EOMI. No scleral icterus. No conjunctival pallor. Normocephalic, atraumatic. No pharyngeal erythema. No thyromegaly. CARDIOVASCULAR: S1 and S2 present. No murmurs, rubs, or gallops. PULMONARY: Chest is clear to auscultation, no wheezing or crackles. ABDOMEN: Soft, nontender, nondistended, normoactive bowel sounds. No palpable organomegaly. Post surgical abdomen with mild tenderness. Abdominal incisions are clean dry and approximated. Increased bowel sounds. MUSCULOSKELETAL: No joint swelling or deformity. EXTREMITIES: No cyanosis, clubbing, no pedal edema NEUROLOGICAL: Diffuse weakness no focal deficits. SKIN: No rashes. Assessment -Leukocytosis and lactic acidosis started on empiric antibiotics, source of infection not clear possibly acute cholecystitis due to the gallbladder wall thickening noted on imaging patient is status post lap chas. -EGD reveals esophagitis and antral gastritis -Pleural effusions bilaterally and pericardial effusion likely a volume overload state Echo shows normal LV function. -Acute hypoxic respiratory failure likely due to diastolic heart failure exacerbation -Hyponatremia, hypovolemic improved with IV fluids -Hypokalemia from poor oral intake -Elevated D Dimer; CTA negative for PE. -Hypomagnesemia supplemented -Hyperlipidemia -Hypertension -Moderate protein calorie malnutrition -COPD/asthma with no acute exacerbation GI prophylaxis DVT prophylaxis Plan Continue on empiric antibiotics, ID following General surgery consultation patient is status post laproscopic cholecystectomy *IV Lasix 20 mg BID continues pending cardiology consultation Urine output is improving with IV lasix continue to monitor intake and output. PT/OT following patient will return to ECF when stable. Repeat labs in AM The impression and plan of care has been dictated by Maria D Maxwell Nurse Practitioner as directed. Dr. Bella MD I have performed a history and physical examination and medical decision making of this patient, discussed the same with the dictator, and agree with the dictators assessment and plan as written, documented as a scribe. Based on total visit time, I have performed more than 50% of this visit. Objective - Vital Signs Vital signs: Vital Signs Temp 97.6 F 06/14/23 13:51 Pulse 95 06/14/23 13:51 Resp 19 06/14/23 13:51 BP 100/66 06/14/23 13:51 Pulse Ox 96 06/14/23 13:51 FiO2 Intake & Output 06/13/23 06/14/23 06/14/23 18:59 06:59 18:59 Intake Total 177 70 Output Total 1000 Balance 177 70 -1000 Intake: IV 20 0.9 KVO 20 Oral 177 50 Output: Urine 1000 Other: Voiding Method Urinal Urinal Diaper Diaper # Voids 1 2 # Bowel Movements 1 1 - Labs CBC & Chem 7: 06/14/23 05:50 06/14/23 05:50 Labs: Abnormal Lab Results - Last 24 Hours (Table) 06/14/23 06/14/23 Range/Units 05:50 05:50 WBC 13.09 H (4.50-10.00) X 10*3/uL RBC 3.02 L (4.40-5.60) X 10*6/uL Hgb 8.8 L (13.0-17.0) d/dL Hct 28.0 L (39.6-50.0) % MCHC 31.4 L (32.0-37.0) d/dL RDW 16.6 H (11.5-14.5) % Neutrophils # 9.42 H (1.80-7.70) X 10*3/uL Eosinophils # 0.73 H (0.04-0.35) X 10*3/uL BUN 5.9 L (9.0-27.0) mg/dL Creatinine 0.3 L (0.6-1.5) mg/dL Calcium 7.7 L (8.7-10.3) mg/dL AST 157 H (14-35) U/L ALT 69 H (10-49) U/L Alkaline Phosphatase 243 H (41-126) U/L C-Reactive Protein 4.10 H (0.00-0.80) mg/dL Total Protein 4.0 L (6.2-8.2) d/dL Albumin 2.0 L (3.8-4.9) d/dL Albumin/Globulin Ratio 1.00 L (1.60-3.17) Ratio Assessment and Plan Time with Patient: Less than 30
[2023-06-14] MEDS: ATORVASTATIN 40 MG TAB PO SCH (21:34)
[2023-06-15] MEDS: PIPERACILLIN-TAZOBACTAM 3.375 GM in SODIUM CHLORIDE 0.9% 100 ML IVPB SCH ×2 (08:54→15:55)
[2023-06-15] MEDS: ENOXAPARIN 40 MG/0.4 ML SYRINGE SQ SCH (08:54)
[2023-06-15] MEDS: POTASSIUM CHLORIDE ER 20 MEQ TAB.ER PO SCH (08:54)
[2023-06-15] MEDS: TAMSULOSIN 0.4 MG CAP.ER.24H PO SCH (08:55)
[2023-06-15] MEDS: THIAMINE 100 MG TAB PO SCH (08:55)
[2023-06-15] MEDS: MULTIVITAMINS, THERA 1 EACH TAB PO SCH (08:55)
[2023-06-15] MEDS: MIDODRINE 5 MG TAB PO SCH ×3 (08:55→17:55)
[2023-06-15 08:56] LABS: Basophils # (A) 0.05 X 10*3/uL (0.00-0.10); Basophils % (A) 0.4 %; Eosinophils # (A) 0.75 X 10*3/uL (0.04-0.35); Eosinophils % (A) 5.5 %; HCT 28.7 % (39.6-50.0); HGB 8.9 d/dL (13.0-17.0); Lymphocytes # (A) 1.73 X 10*3/uL (0.90-5.00); Lymphocytes % (A) 12.7 %; MCH 28.3 pg (27.0-32.0); MCV 91.1 FL (80.0-97.0); Mean Platelet Volume 9.7 FL (9.5-12.2); Monocytes # (A) 0.83 X 10*3/uL (0.20-1.00); Monocytes % (A) 6.1 %; NRBC Per 100 WBC 0 X 10*3/uL (0.00-0.01); Neutrophils % (A) 74.4 %; Platelet Count 292 X 10*3/uL (140-440); RBC 3.15 X 10*6/uL (4.40-5.60); RDW 16.9 % (11.5-14.5); WBC 13.58 X 10*3/uL (4.50-10.00)
[2023-06-15] MEDS: FLUCONAZOLE 100 MG TAB PO SCH (08:56)
[2023-06-15] MEDS: LACTULOSE 20 GM/30 ML CUP PO SCH ×2 (08:56→19:48)
[2023-06-15] MEDS: FOLIC ACID 1 MG TAB PO SCH (08:56)
[2023-06-15] MEDS: DIVALPROEX ER 250 MG TAB.ER.24H PO SCH (08:56)
[2023-06-15] MEDS: FUROSEMIDE 10 MG/ML 2 ML VIAL IV SCH (08:56)
[2023-06-15] MEDS: PANTOPRAZOLE 40 MG/10 ML VIAL IVP SCH (09:02)
--- NOTE | 2023-06-15 09:58 | P.CRDCN ---
History of Present Illness Consult date: 06/15/23 History of present illness: HISTORY OF PRESENT ILLNESS: This is a 63-year-old male with a past medical history significant for congestive heart failure, dilated cardiomyopathy, sinus tachycardia, and questionable syncope. Patient follows in the office with Dr. Mcelroy. We have been asked to see the patient in consultation for possible atrial fibrillation and pericardial effusion. Patient examined at the bedside. patient is admitted to the hospital secondary to acute cholecystitis. He is status post arthroscopic cholecystectomy. Patient currently denies any chest pain or pressure. He denies any shortness of breath. Vital signs are stable. Telemetry reviewed revealing sinus mechanism with no signs of atrial fibrillation. 2-D echo origi cassandra reported atrial fibrillation. However after reviewing echocardiogram, there was no evidence of atrial fibrillation and patient remained in sinus mechanism. * EKG reveals sinus tachycardia with heart rate of 120. No signs of acute ischemia * Chest xray COPD with bilateral lower lobe infiltrate and small pleural effusion * Laboratory data: WBC 13.09. Hemoglobin 8.8. Platelet count 288. Sodium 136. Potassium 3.8. BUN 5.9. Creatinine 0.3. ProBNP 1220. * Current home cardiac medications include aspirin 81 mg daily, atorvastatin 40 mg at night, metoprolol succinate 25 mg daily * Echocardiogram obtained revealing ejection fraction 55-60%, mild TR with small pericardial effusion * Cardiac catheterization history: Unknown REVIEW OF SYSTEMS: At the time of my exam: CONSTITUTIONAL: Denies fever or chills. HEENT: Denies blurred vision, vision changes, or eye pain. Denies hemoptysis CARDIOVASCULAR: Denies chest pain. Denies orthopnea. Denies PND. Denies palpitations RESPIRATORY: Denies shortness of breath. GASTROINTESTINAL: Denies abdominal pain. Denies nausea or vomiting. HEMATOLOGIC: Denies bleeding disorders. GENITOURINARY: Denies any blood in urine. SKIN: Denies pruitis. Denies rash. PHYSICAL EXAM: VITAL SIGNS: Reviewed. GENERAL: Well-developed in no acute distress. HEENT: Head is normocephalic. Pupils are equal, round. Sclerae anicteric. Mucous membranes of the mouth are moist. Neck supple. No JVD or thyromegaly LUNGS: Respirations even and unlabored. Lungs essentially clear to auscultation bilaterally. HEART: Regular rate and rhythm. S1 and S2 heard. ABDOMEN: Soft. Nondistended. Nontender. EXTREMITIES: Normal range of motion. No clubbing or cyanosis. Peripheral pulses intact. Bilateral lower extremity edema noted at the feet and ankles NEUROLOGIC: Awake and alert. Oriented x 3. ASSESSMENT: Leukocytosis Elevated lactic acid Acute cholecystitis, status post laparoscopic cholecystectomy Sinus tachycardia, no evidence of atrial fibrillation on EKG, telemetry, or echocardiogram Small pericardial effusion Lower extremity edema, likely secondary to malnutrition and hypoalbuminemia secondary to alcohol abuse History of dilated cardiomyopathy second to alcohol abuse History of questionable syncope History of alcohol abuse Protein calorie malnutrition secondary to alcohol abuse PLAN: 2-D echo originally reported atrial fibrillation. However after reviewing echocardiogram, there was no evidence of atrial fibrillation and patient remained in sinus mechanism. Patient is not in acute CHF and does not require continued IV diuretics. We will discontinue IV Lasix. Recommend continued abstinence from alcohol Continue current cardiac medications Obtain lower extremity Doppler to rule out DVT Patient is currently stable from a cardiac perspective Nurse practitioner note has been reviewed by physician. Signing provider agrees with the documented findings, assessment, and plan of care. I reviewed the telemetry an echocardiogram in detail and I do not feel that patient has atrial fibrillation evidence at this time. Cardiology team will sign off. In case patient has any further concerns of atrial fibrillation, on of the private eye. Questions, please recontact us Past Medical History Past Medical History: Memory Impairment, Myocardial Infarction ([place]) Last Myocardial Infarction Date:: . History of Any Multi-Drug Resistant Organisms: Unobtainable Smoking Status: Former smoker Past Alcohol Use History: Heavy Medications and Allergies Home Medications Medication Instructions Recorded Confirmed Type Amoxic-Pot Clav 875-125Mg 1 tab PO Q12HR 06/06/23 06/06/23 History [Augmentin 875-125] Aspirin EC [Ecotrin Low Dose] 81 mg PO DAILY 06/06/23 06/06/23 History Atorvastatin [Lipitor] 40 mg PO HS 06/06/23 06/06/23 History Budesonide [Pulmicort] 0.5 mg INHALATION RT-BID 06/06/23 06/06/23 History Divalproex ER [Depakote ER] 250 mg PO DAILY 06/06/23 06/06/23 History Folic Acid 1 mg PO DAILY 06/06/23 06/06/23 History Ipratropium-Albuterol Nebulize 3 ml INHALATION RT-BID 06/06/23 06/06/23 History [Duoneb 0.5 mg-3 mg/3 ml Soln] Lactose-Reduced Food [Ensure Plus] 1 can PO TID@0900,1300,2100 06/06/23 06/06/23 History Lactulose 20 gm PO BID 06/06/23 06/06/23 History Metoprolol Succinate (ER) [Toprol 25 mg PO DAILY 06/06/23 06/06/23 History Xl] Midodrine [ProAmatine] 5 mg PO TID@0900,1300,1800 06/06/23 06/06/23 History Mirtazapine 7.5 mg PO DAILY@1700 06/06/23 06/06/23 History Multivitamins, Thera [Multivitamin 1 tab PO DAILY 06/06/23 06/06/23 History (formulary)] Omeprazole [PriLOSEC] 20 mg PO DAILY 06/06/23 06/06/23 History Thiamine [Vitamin B-1] 100 mg PO DAILY 06/06/23 06/06/23 History Allergies Allergy/AdvReac Type Severity Reaction Status Date / Time No Known Allergies Allergy Verified 06/06/23 22:06 Physical Exam Vitals: Vital Signs Temp Pulse Pulse Resp BP BP Pulse Ox 06/15/23 05:08 101/65 06/15/23 02:17 97.7 F 104 H 14 85/56 94 L 06/14/23 20:00 98.2 F 67 18 92/58 06/14/23 13:51 97.6 F 95 19 100/66 96 06/14/23 10:05 100 06/14/23 09:53 100 06/14/23 08:19 97.9 F 102 H 16 108/69 92 L Intake and Output 06/14/23 06/15/23 06/15/23 22:59 06:59 14:59 Intake Total 120 Output Total 1150 Balance 120 -1150 Intake: Oral 120 Output: Urine 1150 Other: # Bowel Movements 1 Results 06/15/23 06:02 06/15/23 06:02 Cardiac Enzymes 06/14/23 Range/Units 05:50 AST 157 H (14-35) U/L CBC 06/14/23 Range/Units 05:50 WBC 13.09 H (4.50-10.00) X 10*3/uL RBC 3.02 L (4.40-5.60) X 10*6/uL Hgb 8.8 L (13.0-17.0) d/dL Hct 28.0 L (39.6-50.0) % Plt Count 288 (140-440) X 10*3/uL Comprehensive Metabolic Panel 06/14/23 Range/Units 05:50 Sodium 136 (135-145) mmol/L Potassium 3.8 (3.5-5.5) mmol/L Chloride 104 (96-109) mmol/L Carbon Dioxide 23.2 (21.6-31.8) mmol/L BUN 5.9 L (9.0-27.0) mg/dL Creatinine 0.3 L (0.6-1.5) mg/dL Glucose 100 (70-110) mg/dL Calcium 7.7 L (8.7-10.3) mg/dL AST 157 H (14-35) U/L ALT 69 H (10-49) U/L Alkaline Phosphatase 243 H (41-126) U/L Total Protein 4.0 L (6.2-8.2) d/dL Albumin 2.0 L (3.8-4.9) d/dL Current Medications Generic Name Dose Route Start Last Admin Trade Name Freq PRN Reason Stop Dose Admin Acetaminophen 650 mg 06/08/23 21:19 06/08/23 23:03 Acetaminophen Tab 325 Mg Tab PO 650 mg Q6HR PRN Administration Fever and/ or Mild Pain Hydrocodone Bitart/Acetaminophen 1 each 06/12/23 13:25 06/14/23 00:42 Hydrocodone/Apap 5-325mg 1 Each Tab PO 1 each Q4HR PRN Administration Pain Albuterol/Ipratropium 3 ml 06/07/23 20:00 06/14/23 21:11 Ipratropium-Albuterol 3 Ml Neb INHALATION Not Given RT-BID BHAVANA Atorvastatin Calcium 40 mg 06/07/23 21:00 06/14/23 21:34 Atorvastatin 40 Mg Tab PO 40 mg HS BHAVANA Administration Budesonide 0.5 mg 06/07/23 20:00 06/14/23 21:11 Budesonide 0.5 Mg/2 Ml Nebu INHALATION Not Given RT-BID BHAVANA Divalproex Sodium 250 mg 06/08/23 09:00 06/14/23 08:47 Divalproex Er 250 Mg Tab.Er.24h PO 250 mg DAILY BHAVANA Administration Enoxaparin Sodium 40 mg 06/11/23 09:00 06/14/23 08:48 Enoxaparin 40 Mg/0.4 Ml Syringe SQ 40 mg DAILY BHAVANA Administration Fluconazole 100 mg 06/13/23 13:00 06/14/23 08:48 Fluconazole 100 Mg Tab PO 100 mg DAILY BHAVANA Administration Protocol Folic Acid 1 mg 06/08/23 09:00 06/14/23 08:47 Folic Acid 1 Mg Tab PO 1 mg DAILY BHAVANA Administration Furosemide 20 mg 06/13/23 21:00 06/14/23 21:34 Furosemide 10 Mg/Ml 2 Ml Vial IV 20 mg Q12HR BHAVANA Administration Hydromorphone HCl 1 mg 06/10/23 14:55 Hydromorphone 1 Mg/Ml 1 Ml Syringe IVP Q3HR PRN Pain Piperacillin Sod/Tazobactam 100 mls @ 25 mls/hr 06/07/23 16:00 06/14/23 23:41 Sod 3.375 gm/ Sodium Chloride IVPB 25 mls/hr Q8HR BHAVANA Administration Protocol Lactulose 20 gm 06/07/23 21:00 06/14/23 21:34 Lactulose 20 Gm/30 Ml Cup PO 20 gm BID BHAVANA Administration Midodrine 5 mg 06/07/23 13:00 06/14/23 18:23 Midodrine 5 Mg Tab PO 5 mg TID@0900,1300,1800 BHAVANA Administration Mirtazapine 7.5 mg 06/07/23 17:00 06/14/23 18:23 Mirtazapine 15 Mg Tab PO 7.5 mg DAILY@1700 BHAVANA Administration Miscellaneous Information 1 each 06/09/23 10:20 Magnesium Replacement Protocol 1 Each Misc MISCELLANE DAILY PRN Per Protocol Protocol Multivitamins 1 each 06/08/23 09:00 06/14/23 08:47 Multivitamins, Thera 1 Each Tab PO 1 each DAILY BHAVANA Administration Naloxone HCl 0.2 mg 06/07/23 03:31 Naloxone 0.4 Mg/Ml 1 Ml Vial IV Q2M PRN Opioid Reversal Pantoprazole Sodium 40 mg 06/08/23 16:30 06/14/23 08:48 Pantoprazole 40 Mg/10 Ml Vial IVP 40 mg DAILY BHAVANA Administration Potassium Chloride 20 meq 06/10/23 09:00 06/14/23 08:47 Potassium Chloride Er 20 Meq Tab.Er PO 20 meq DAILY BHAVANA Administration Tamsulosin HCl 0.4 mg 06/11/23 18:15 06/14/23 08:47 Tamsulosin 0.4 Mg Cap.Er.24h PO 0.4 mg [id number]-[id number] BHAVANA Administration Thiamine HCl 100 mg 06/08/23 09:00 06/14/23 08:47 Thiamine 100 Mg Tab PO 100 mg DAILY BHAVANA Administration Intake and Output 06/14/23 06/15/23 06/15/23 22:59 06:59 14:59 Intake Total 120 Output Total 1150 Balance 120 -1150 Intake: Oral 120 Output: Urine 1150 Other: # Bowel Movements 1 06/14/23 05:50 06/14/23 05:50
--- NOTE | 2023-06-15 10:02 | US ---
EXAMINATION TYPE: US venous doppler duplex LE DATE OF EXAM: 06/15/2023 9:08 AM COMPARISON: NONE CLINICAL INDICATION: Male, 63 years old with history of r/o DVT; No redness or swelling. Pain. SIDE PERFORMED: Bilateral TECHNIQUE: The lower extremity deep venous system is examined utilizing real time linear array sonog joshua with graded compression, doppler sonography and color-flow sonography. VESSELS IMAGED: Common Femoral Vein Deep Femoral Vein Greater Saphenous Vein *- not visualized Femoral Vein Popliteal Vein Small Saphenous Vein * Proximal Calf Veins (* superficial vessels) Limited due to patient unable to move from curled up position Right Leg: Negative for DVT Left Leg: Negative for DVT IMPRESSION: No visualized deep venous thrombosis of the bilateral lower extremities. Unable to visualize bilatera l greater saphenous veins due to patient positioning.
--- NOTE | 2023-06-15 10:31 | P.PN ---
Subjective Progress Note Date: 06/15/23 CHIEF COMPLAINT: Abdominal pain HISTORY OF PRESENT ILLNESS: Patient is postop day #5 status post laparoscopic cholecystectomy. He had EGD on 06/09/23 showing antral gastritis and mild esophagitis. Patient denies any abdominal pain. He has been having bowel movements. Denies any nausea or vomiting. Tolerating diet. Afebrile. WBC 13.8 hgb 8.9 plt 292 PHYSICAL EXAM: VITAL SIGNS: Reviewed. GENERAL: Well-developed in no acute distress. ABDOMEN: Soft. Nondistended. Incision sites clean dry and intact NEUROLOGIC: Confused ASSESSMENT: 1. Acute Cholecystitis status post laparoscopic cholecystectomy 2. Gastritis and mild esophagitis noted on EGD 3. Leukocytosis PLAN: -Continue regular diet -Continue antibiotics per ID service -Continue Protonix -Encouraged patient to use incentive spirometer -Encouraged patient to increase activity level Physician Meatcutter note has been reviewed by physician. Signing provider agrees with the documented findings, assessment, and plan of care. I have personally seen and examined the patient, reviewed the COOKER HELPER /PAs history, exam and MDM and agree with the assessment and plan as written. Based on total visit time, I have performed more than 50% of the visit. As above: Patient doing well today. Denies abdominal pain. Tolerating diet. No surgical plans at this time. We'll sign off. Outpatient follow-up with Dr. Herbert. Repeat CMP as outpatient to confirm resolution of mildly elevated liver enzymes. Objective - Vital Signs Vital signs: Vital Signs Temp 97.4 F L 06/15/23 07:00 Pulse 56 L 06/15/23 07:00 Resp 18 06/15/23 07:00 BP 109/72 06/15/23 07:00 Pulse Ox 95 06/15/23 07:00 FiO2 Intake & Output 06/14/23 06/15/23 06/15/23 18:59 06:59 18:59 Intake Total 120 Output Total 1000 1150 Balance -880 -1150 Intake: Oral 120 Output: Urine 1000 1150 Other: Voiding Method Urinal Diaper # Bowel Movements 1 - Labs CBC & Chem 7: 06/16/23 05:39 06/16/23 05:39 Labs: Abnormal Lab Results - Last 24 Hours (Table) 06/14/23 06/14/23 06/15/23 Range/Units 05:50 05:50 06:02 WBC 13.09 H 13.58 H (4.50-10.00) X 10*3/uL RBC 3.02 L 3.15 L (4.40-5.60) X 10*6/uL Hgb 8.8 L 8.9 L (13.0-17.0) d/dL Hct 28.0 L 28.7 L (39.6-50.0) % MCHC 31.4 L 31.0 L (32.0-37.0) d/dL RDW 16.6 H 16.9 H (11.5-14.5) % Neutrophils # 9.42 H 10.10 H (1.80-7.70) X 10*3/uL Eosinophils # 0.73 H 0.75 H (0.04-0.35) X 10*3/uL BUN 5.9 L (9.0-27.0) mg/dL Creatinine 0.3 L (0.6-1.5) mg/dL Calcium 7.7 L (8.7-10.3) mg/dL AST 157 H (14-35) U/L ALT 69 H (10-49) U/L Alkaline Phosphatase 243 H (41-126) U/L C-Reactive Protein 4.10 H (0.00-0.80) mg/dL Total Protein 4.0 L (6.2-8.2) d/dL Albumin 2.0 L (3.8-4.9) d/dL Albumin/Globulin Ratio 1.00 L (1.60-3.17) Ratio
[2023-06-15 10:34] LABS: ALT 62 U/L (10-49); AST 145 U/L (14-35); Albumin 1.9 d/dL (3.8-4.9); Albumin/Globulin Ratio 0.83 Ratio (1.60-3.17); Alkaline Phosphatase 224 U/L (41-126); BUN/Creat Ratio 15.75 Ratio (12.00-20.00); Blood Urea Nitrogen 6.3 mg/dL (9.0-27.0); Calcium 7.7 mg/dL (8.7-10.3); Carbon Dioxide 20.5 mmol/L (21.6-31.8); Chloride 100 mmol/L (96-109); Globulin 2.3 d/dL (1.6-3.3); Glucose 96 mg/dL (70-110); Sodium 134 mmol/L (135-145); Total Bilirubin 0.4 mg/dL (0.3-1.2); Total Protein 4.2 d/dL (6.2-8.2)
[2023-06-15] MEDS: BUDESONIDE 0.5 MG/2 ML NEBU INHALATION SCH ×2 (12:15→19:55)
[2023-06-15] MEDS: IPRATROPIUM-ALBUTEROL 3 ML NEB INHALATION SCH ×3 (12:15→19:55)
--- NOTE | 2023-06-15 12:41 | XR ---
EXAMINATION TYPE: XR chest 1V portable DATE OF EXAM: 06/15/2023 12:36 PM COMPARISON: Chest radiographs from 06/11/2023, CTA chest 06/12/2023 TECHNIQUE: XR chest 1V portable Portable AP radiograph of the chest. CLINICAL INDICATION:Male, 63 years old with history of Poss. Pleural Effusion; FINDINGS: Patient is rotated which was evaluation. Lungs/Pleura: Blunting of both costophrenic angles with bibasilar patchy airspace opacities. Pulmonary vascularity: Unremarkable. Heart/mediastinum: Cardiomediastinal silhouette is enlarged and stable. Atherosclerotic calcificatio ns are seen in the aorta. Musculoskeletal: No acute osseous pathology. IMPRESSION: Small bilateral pleural effusions with bibasilar patchy airspace opacities which may represent infilt rates versus atelectasis.
[2023-06-15] MEDS ORDERED: FUROSEMIDE 10 MG/ML 4 ML VIAL IV STA (15:13)
[2023-06-15] MEDS ORDERED: FUROSEMIDE 10 MG/ML 2 ML VIAL IV STA (15:46)
[2023-06-15] MEDS: MIRTAZAPINE 15 MG TAB PO SCH (16:00)
--- NOTE | 2023-06-15 16:55 | P.CNPUL ---
History of Present Illness Consult date: 06/15/23 Reason for consult: pleural effusion History of present illness: I was asked to better with this patient for bilateral pleural effusions. Is a [age]-year-old male patient with known history of dilated cardiomyopathy/CHF in addition to previous history of alcohol abuse. The patient has chronic memory impairment and he is a [facility] resident. The patient presented to the hospital because of pain and leukocytosis and mild lactic acidosis. Initial chest x-ray showed some mild pulmonary vascular congestion. He was also having some crampy abdominal pain along with nausea without any emesis. The patient was seen by general surgery and the medical team. The patient was evaluated for possible cholecystitis. CAT scan of the abdomen and pelvis reported findings in the distal duodenum suggestive of duodenitis. No evidence of any bowel obstruction. Small bilateral pleural effusions. There is some compressive atelectatic change in lung bases. Gallbladder was contracted with mild wall thickening and pericholecystic fluid. Based on that, the patient underwent an EGD and the patient was found to have antral gastritis and esophagitis and subsequently the patient underwent a laparoscopic cholecystectomy on 06/10/2023. The patient is currently on 3 L of oxygen by nasal cannula. Most recent chest x-ray shows small bites the pleural effusions. Echocardiogram showed a preserved LV function with an EF of around 55-60%. Mild tricuspid regurgitation and mild pericardial effusion. Hemoglobin is 8.8 with a platelet count of 288, sodium is at 136, BUN is at 5 with a creatinine of 0.3. ProBNP level is 1220. The patient remains on IV Zosyn. Patient is also on Diflucan. Infectious diseases on the case. Review of Systems Constitutional: Reports fatigue, Reports poor appetite, Reports weakness, Reports weight loss Eyes: denies as per HPI, denies blurred vision, denies bulging eye, denies decreased vision, denies diplopia, denies discharge, denies dry eye, denies irritation, denies itching, denies pain, denies photophobia, denies loss of peripheral vision, denies loss of vision, denies tunnel vision/blind spots Ears: deny: decreased hearing, ear discharge, earache, tinnitus Ears, nose, mouth and throat: Reports ant. neck pain Breasts: absent: as per HPI, gynecomastia Cardiovascular: Reports as per HPI Respiratory: Reports as per HPI Gastrointestinal: Reports as per HPI Genitourinary: Reports as per HPI Musculoskeletal: Reports as per HPI Musculoskeletal: absent: ankle pain, ankle stiffness, ankle swelling Integumentary: Reports as per HPI Neurological: Reports gait dysfunction, Reports memory loss, Reports weakness Psychiatric: Reports as per HPI Endocrine: Reports as per HPI Hematologic/Lymphatic: Reports as per HPI Allergic/Immunologic: Reports as per HPI Past Medical History Past Medical History: Hyperlipidemia, Memory Impairment, Myocardial Infarction (SD) Last Myocardial Infarction Date:: . History of Any Multi-Drug Resistant Organisms: Unobtainable Smoking Status: Former smoker Past Alcohol Use History: Heavy Medications and Allergies Home Medications Medication Instructions Recorded Confirmed Type Amoxic-Pot Clav 875-125Mg 1 tab PO Q12HR 06/06/23 06/06/23 History [Augmentin 875-125] Aspirin EC [Ecotrin Low Dose] 81 mg PO DAILY 06/06/23 06/06/23 History Atorvastatin [Lipitor] 40 mg PO HS 06/06/23 06/06/23 History Budesonide [Pulmicort] 0.5 mg INHALATION RT-BID 06/06/23 06/06/23 History Divalproex ER [Depakote ER] 250 mg PO DAILY 06/06/23 06/06/23 History Folic Acid 1 mg PO DAILY 06/06/23 06/06/23 History Ipratropium-Albuterol Nebulize 3 ml INHALATION RT-BID 06/06/23 06/06/23 History [Duoneb 0.5 mg-3 mg/3 ml Soln] Lactose-Reduced Food [Ensure Plus] 1 can PO TID@0900,1300,2100 06/06/23 06/06/23 History Lactulose 20 gm PO BID 06/06/23 06/06/23 History Metoprolol Succinate (ER) [Toprol 25 mg PO DAILY 06/06/23 06/06/23 History Xl] Midodrine [ProAmatine] 5 mg PO TID@0900,1300,1800 06/06/23 06/06/23 History Mirtazapine 7.5 mg PO DAILY@1700 06/06/23 06/06/23 History Multivitamins, Thera [Multivitamin 1 tab PO DAILY 06/06/23 06/06/23 History (formulary)] Omeprazole [PriLOSEC] 20 mg PO DAILY 06/06/23 06/06/23 History Thiamine [Vitamin B-1] 100 mg PO DAILY 06/06/23 06/06/23 History Allergies Allergy/AdvReac Type Severity Reaction Status Date / Time No Known Allergies Allergy Verified 06/06/23 22:06 Physical Exam Vitals: Vital Signs Temp Pulse Pulse Resp BP BP Pulse Ox 06/15/23 16:24 80 06/15/23 16:15 88 06/15/23 14:00 98.2 F 91 15 103/66 83 L 06/15/23 12:30 64 06/15/23 12:15 68 06/15/23 07:00 97.4 F L 56 L 18 109/72 95 06/15/23 05:08 101/65 06/15/23 02:17 97.7 F 104 H 14 85/56 94 L 06/14/23 20:00 98.2 F 67 18 92/58 Intake and Output 06/15/23 06/15/23 06/15/23 06:59 14:59 22:59 Output Total 1150 800 Balance -1150 -800 Output: Urine 1150 800 Other: Voiding Method External Catheter # Bowel Movements 1 GENERAL: Well-developed in no acute distress. The patient is calm and comfortable patient is currently on 3 L of oxygen by nasal cannula Head exam was generally normal. There was no scleral icterus or corneal arcus. Mucous membranes were moist. HEENT: Head is normocephalic. Pupils are equal, round. Sclerae anicteric. Mucous membranes of the mouth are moist. Neck supple. No JVD or thyromegaly LUNGS: Respirations even and unlabored. Lungs essentially clear to auscultation bilaterally. HEART: Regular rate and rhythm. S1 and S2 heard. ABDOMEN: Soft. Nondistended. Nontender. Abdominal surgical 1 sets of dry clean and intact EXTREMITIES: Normal range of motion. No clubbing or cyanosis. Peripheral pulses intact. Bilateral lower extremity edema noted at the feet and ankles NEUROLOGIC: Awake and alert. Oriented x 3. He is a poor historian and he has obvious memory deficits and cognitive impairment Results - Laboratory Findings CBC and BMP: 06/15/23 06:02 06/15/23 06:02 PT/INR, D-dimer PT 17.9 sec (10.0-12.5) H 06/06/23 22:42 INR 1.8 (<1.2) H 06/06/23 22:42 D-Dimer 1.45 mg/L FEU (<0.60) H 06/11/23 12:35 Abnormal lab findings: Abnormal Labs 06/06/23 06/06/23 06/06/23 21:52 21:52 21:52 WBC 19.9 H RBC Hgb 12.9 L Hct MCHC RDW MPV Neutrophils # 17.7 H Monocytes # Eosinophils # NRBC/100 WBC Diff PT INR APTT D-Dimer Sodium 130 L Potassium Chloride Carbon Dioxide 21 L Anion Gap BUN Creatinine 0.57 L Glucose 107 H Plasma Lactic Acid Shane 2.4 H* Calcium 7.8 L AST ALT Alkaline Phosphatase 223 H C-Reactive Protein Total Protein 5.3 L Albumin 2.5 L Albumin/Globulin Ratio Procalcitonin Urine Protein Urine Ketones Ur Leukocyte Esterase Hyaline Casts Urine Mucus 06/06/23 06/07/23 06/07/23 22:42 02:06 07:20 WBC 17.0 H RBC 3.14 L Hgb 9.2 L D Hct 29.3 L MCHC RDW MPV Neutrophils # 13.6 H Monocytes # 1.7 H Eosinophils # NRBC/100 WBC Diff PT 17.9 H INR 1.8 H APTT 30.3 H D-Dimer Sodium Potassium Chloride Carbon Dioxide Anion Gap BUN Creatinine Glucose Plasma Lactic Acid Shane Calcium AST ALT Alkaline Phosphatase C-Reactive Protein Total Protein Albumin Albumin/Globulin Ratio Procalcitonin Urine Protein Trace H Urine Ketones Trace H Ur Leukocyte Esterase Trace H Hyaline Casts 50 H Urine Mucus Occasional H 06/07/23 06/07/23 06/07/23 07:20 07:20 07:20 WBC RBC Hgb Hct MCHC RDW MPV Neutrophils # Monocytes # Eosinophils # NRBC/100 WBC Diff PT INR APTT D-Dimer Sodium 132 L Potassium Chloride Carbon Dioxide Anion Gap BUN Creatinine 0.30 L Glucose Plasma Lactic Acid Shane Calcium 6.9 L AST ALT Alkaline Phosphatase 134 H C-Reactive Protein 7.0 H Total Protein 4.4 L Albumin 1.9 L Albumin/Globulin Ratio Procalcitonin 0.19 H Urine Protein Urine Ketones Ur Leukocyte Esterase Hyaline Casts Urine Mucus 06/08/23 06/08/23 06/09/23 08:03 08:03 06:47 WBC 14.5 H RBC 3.32 L Hgb 9.7 L Hct 30.4 L MCHC RDW MPV Neutrophils # 12.2 H Monocytes # Eosinophils # NRBC/100 WBC Diff PT INR APTT D-Dimer Sodium 136 L 135 L Potassium 3.2 L Chloride 108 H 109 H Carbon Dioxide 20 L 20 L Anion Gap BUN 5 L 4 L Creatinine 0.25 L 0.26 L Glucose 110 H Plasma Lactic Acid Shane Calcium 7.4 L 7.3 L AST ALT Alkaline Phosphatase C-Reactive Protein Total Protein Albumin Albumin/Globulin Ratio Procalcitonin Urine Protein Urine Ketones Ur Leukocyte Esterase Hyaline Casts Urine Mucus 06/09/23 06/10/23 06/10/23 06:47 05:44 05:44 WBC 12.6 H 14.8 H RBC 3.20 L 3.35 L Hgb 9.5 L 10.1 L Hct 30.0 L 31.8 L MCHC RDW MPV Neutrophils # 9.9 H 12.2 H Monocytes # Eosinophils # NRBC/100 WBC Diff PT INR APTT D-Dimer Sodium 133 L Potassium Chloride Carbon Dioxide 19 L Anion Gap BUN 5 L Creatinine 0.26 L Glucose Plasma Lactic Acid Shane Calcium 7.4 L AST ALT Alkaline Phosphatase C-Reactive Protein Total Protein Albumin Albumin/Globulin Ratio Procalcitonin Urine Protein Urine Ketones Ur Leukocyte Esterase Hyaline Casts Urine Mucus 06/11/23 06/11/23 06/11/23 05:35 05:35 12:35 WBC 15.6 H RBC 3.71 L Hgb 10.8 L Hct 34.5 L MCHC RDW MPV Neutrophils # 12.2 H Monocytes # 1.1 H Eosinophils # NRBC/100 WBC Diff PT INR APTT D-Dimer 1.45 H Sodium 133 L Potassium Chloride Carbon Dioxide 20 L Anion Gap BUN 6 L Creatinine 0.32 L Glucose Plasma Lactic Acid Shane Calcium 7.5 L AST 95 H ALT Alkaline Phosphatase 228 H C-Reactive Protein Total Protein 4.5 L Albumin 2.0 L Albumin/Globulin Ratio Procalcitonin Urine Protein Urine Ketones Ur Leukocyte Esterase Hyaline Casts Urine Mucus 06/12/23 06/12/23 06/12/23 00:37 06:06 06:06 WBC 13.43 H RBC 3.38 L Hgb 9.6 L Hct 30.9 L MCHC 31.1 L RDW 15.9 H MPV 9.4 L Neutrophils # 10.39 H Monocytes # Eosinophils # 0.48 H NRBC/100 WBC Diff PT INR APTT D-Dimer Sodium Potassium Chloride 111 H Carbon Dioxide 21 L Anion Gap BUN 7 L Creatinine 0.28 L Glucose 116 H Plasma Lactic Acid Shane Calcium 7.1 L AST ALT Alkaline Phosphatase C-Reactive Protein Total Protein Albumin Albumin/Globulin Ratio Procalcitonin 0.11 H Urine Protein Urine Ketones Ur Leukocyte Esterase Hyaline Casts Urine Mucus 06/12/23 06/13/23 06/13/23 14:32 05:44 05:44 WBC 14.05 H RBC 3.13 L Hgb 8.9 L Hct 29.2 L MCHC 30.5 L RDW 16.4 H MPV Neutrophils # 10.32 H Monocytes # Eosinophils # 0.66 H NRBC/100 WBC Diff 0.02 H PT INR APTT D-Dimer Sodium Potassium Chloride Carbon Dioxide 20.2 L Anion Gap BUN 5.3 L Creatinine 0.3 L Glucose Plasma Lactic Acid Shane Calcium 7.4 L AST ALT Alkaline Phosphatase C-Reactive Protein Total Protein Albumin Albumin/Globulin Ratio Procalcitonin Urine Protein Trace H Urine Ketones Trace H Ur Leukocyte Esterase Hyaline Casts Urine Mucus 06/14/23 06/14/23 06/15/23 05:50 05:50 06:02 WBC 13.09 H 13.58 H RBC 3.02 L 3.15 L Hgb 8.8 L 8.9 L Hct 28.0 L 28.7 L MCHC 31.4 L 31.0 L RDW 16.6 H 16.9 H MPV Neutrophils # 9.42 H 10.10 H Monocytes # Eosinophils # 0.73 H 0.75 H NRBC/100 WBC Diff PT INR APTT D-Dimer Sodium Potassium Chloride Carbon Dioxide Anion Gap BUN 5.9 L Creatinine 0.3 L Glucose Plasma Lactic Acid Shane Calcium 7.7 L AST 157 H ALT 69 H Alkaline Phosphatase 243 H C-Reactive Protein 4.10 H Total Protein 4.0 L Albumin 2.0 L Albumin/Globulin Ratio 1.00 L Procalcitonin Urine Protein Urine Ketones Ur Leukocyte Esterase Hyaline Casts Urine Mucus 06/15/23 06:02 WBC RBC Hgb Hct MCHC RDW MPV Neutrophils # Monocytes # Eosinophils # NRBC/100 WBC Diff PT INR APTT D-Dimer Sodium 134 L Potassium Chloride Carbon Dioxide 20.5 L Anion Gap 13.50 H BUN 6.3 L Creatinine 0.4 L Glucose Plasma Lactic Acid Shane Calcium 7.7 L AST 145 H ALT 62 H Alkaline Phosphatase 224 H C-Reactive Protein 5.80 H Total Protein 4.2 L Albumin 1.9 L Albumin/Globulin Ratio 0.83 L Procalcitonin Urine Protein Urine Ketones Ur Leukocyte Esterase Hyaline Casts Urine Mucus - Diagnostic Findings Chest x-ray: image reviewed Assessment and Plan Plan: Small bilateral pleural effusion, likely reactive, to be monitored. No indication for pneumonia Acute hypoxic respiratory failure currently on 3 L of oxygen by nasal cannula Acute cholecystitis post-laparoscopic cholecystectomy and this was done on 06/10/2023 Mild duodenitis and antritis and gastritis History of dilated cardiomyopathy secondary to alcohol abuse. The patient has a preserved ejection fraction of 55-60% Small pericardial effusion History of alcohol abuse History of protein calorie malnutrition secondary to chronic alcoholism correction resident Mild leukocytosis Normocytic anemia of chronic disease Plan No need for any thoracentesis at this point in time. The pleural effusions are small We'll obtain ultrasound marking of the chest to assess the size of the effusions Continue IV Zosyn Continue bronchodilators Incentive spirometer Wean FiO2 as tolerated to maintain saturation above 90% Advance diet as tolerated We'll follow
[2023-06-15] MEDS: ATORVASTATIN 40 MG TAB PO SCH (19:48)
--- NOTE | 2023-06-15 21:03 | US ---
EXAMINATION TYPE: US chest DATE OF EXAM: 06/15/2023 COMPARISON: XR:06/15/23 CLINICAL INDICATION: Male, 63 years old with history of Markedly visited sizable effusion bilateral; pleural effusion. Pt could not sit up. Pt could only roll on left side. Pt stated he cannot lay on right side because it hurt too much TECHNIQUE: Targeted ultrasound of the posterior lower right hemithorax EXAM MEASUREMENTS: Right Pleural Effusion pocket size: 11.8 cm Right skin surface to fluid distance: 1.5 cm Right side marked for possible thoracentesis outside the dept. Pulmonologists are able to review the images in the patient?s EMR. IMPRESSIONS: Moderate to large right pleural effusion.
--- NOTE | 2023-06-15 22:59 | PN ---
PROGRESS NOTE DATE OF SERVICE: 06/15/2023 SUBJECTIVE: This is a 63-year-old gentleman, who was admitted after surgery. He had shortness of breath as well. Pleural effusion is suspected. The patient has been on bronchodilators. The patient is being closely monitored. PAST MEDICAL HISTORY: Reviewed. REVIEW OF SYSTEMS: Could not be taken, the patient is mildly confused. CURRENT MEDICATIONS: Reviewed include Lasix. Doses and rest of the medications are noted. PHYSICAL EXAMINATION: VITAL SIGNS: Pulse is 91, blood pressure 103/66, respirations 15. CHEST: Few scattered rhonchi and crackles. ABDOMEN: Soft and nontender. Status post surgery. LEGS: No edema. NERVOUS SYSTEM: Nonfocal. LABORATORY DATA: Reviewed. Cultures are negative. ASSESSMENT: 1. Status post cholecystectomy. 2. Shortness of breath with bilateral pleural effusion versus pneumonia. 3. Possible chronic obstructive pulmonary disease. 4. Rule out congestive heart failure. 5. Memory impairment. 6. History of myocardial infarction. RECOMMENDATIONS AND DISCUSSION: In this is a 63-year-old gentleman presented with multiple complex medical issues, we will monitor the patient closely. I would add intensive bronchodilator treatment. Otherwise, continue with Lasix. Pulmonary consultation. The CT angio showed mostly pleural effusion changes with edema. Prognosis is guarded. Further recommendations to follow. MMODL / IJN: [id number] /
[2023-06-16] MEDS: PIPERACILLIN-TAZOBACTAM 3.375 GM in SODIUM CHLORIDE 0.9% 100 ML IVPB SCH ×4 (00:04→23:20)
[2023-06-16 06:37] LABS: Potassium 3.7 mmol/L (3.5-5.1)
[2023-06-16 06:38] LABS: African American GFR (CKD) >90 (>60 ml/min/1.73 sqM); Anion Gap 6 mmol/L; Blood Urea Nitrogen 7 mg/dL (9-20); Calcium 7.6 mg/dL (8.4-10.2); Carbon Dioxide 21 mmol/L (22-30); Chloride 105 mmol/L (98-107); Glucose 78 mg/dL (74-99); Non-African American GFR(CKD) >90 (>60 ml/min/1.73 sqM); Sodium 132 mmol/L (137-145)
[2023-06-16] MEDS: IPRATROPIUM-ALBUTEROL 3 ML NEB INHALATION SCH ×4 (08:14→19:56)
[2023-06-16] MEDS: BUDESONIDE 0.5 MG/2 ML NEBU INHALATION SCH ×2 (08:15→19:56)
[2023-06-16 08:24] LABS: Anisocytosis Slight; Basophils % (A) 0 %; Eosinophils # (A) 0.3 k/uL (0-0.7); Eosinophils % (A) 3 %; HCT 30.4 % (39.0-53.0); HGB 10.1 gm/dL (13.0-17.5); Lymphocytes # (A) 1.1 k/uL (1.0-4.8); Lymphocytes % (A) 9 %; MCH 29.4 pg (25.0-35.0); MCHC 33.1 g/dL (31.0-37.0); MCV 88.9 fL (80.0-100.0); Mean Platelet Volume 9.4; Monocytes # (A) 0.5 k/uL (0-1.0); Monocytes % (A) 4 %; Neutrophils # (A) 9.9 k/uL (1.3-7.7); Neutrophils % (A) 82 %; Platelet Count 284 k/uL (150-450); RBC 3.42 m/uL (4.30-5.90); RDW 16.3 % (11.5-15.5); WBC 12.1 k/uL (3.8-10.6)
[2023-06-16] MEDS: ENOXAPARIN 40 MG/0.4 ML SYRINGE SQ SCH (08:43)
[2023-06-16] MEDS: TAMSULOSIN 0.4 MG CAP.ER.24H PO SCH (08:43)
[2023-06-16] MEDS: POTASSIUM CHLORIDE ER 20 MEQ TAB.ER PO SCH (08:44)
[2023-06-16] MEDS: MULTIVITAMINS, THERA 1 EACH TAB PO SCH (08:44)
[2023-06-16] MEDS: DIVALPROEX ER 250 MG TAB.ER.24H PO SCH (08:44)
[2023-06-16] MEDS: FLUCONAZOLE 100 MG TAB PO SCH (08:44)
[2023-06-16] MEDS: THIAMINE 100 MG TAB PO SCH (08:44)
[2023-06-16] MEDS: FOLIC ACID 1 MG TAB PO SCH (08:44)
[2023-06-16] MEDS: MIDODRINE 5 MG TAB PO SCH ×3 (08:45→17:10)
[2023-06-16] MEDS: PANTOPRAZOLE 40 MG/10 ML VIAL IVP SCH (08:45)
[2023-06-16] MEDS: LACTULOSE 20 GM/30 ML CUP PO SCH ×2 (08:45→20:07)
--- NOTE | 2023-06-16 09:29 | XR ---
EXAMINATION TYPE: XR chest 1V portable DATE OF EXAM: 06/16/2023 HISTORY: Shortness of breath. COMPARISON: 06/15/2023 TECHNIQUE: Single view of the chest is submitted. FINDINGS: Demonstrated are scattered senescent parenchymal change. Stable basilar infiltrates and small effusions. The heart is stable. Hilar and mediastinal structures are within normal limits. Degenerative changes are seen of the dorsal spine. IMPRESSION: 1. Stable basilar infiltrates and small effusions.
--- NOTE | 2023-06-16 11:28 | P.PN ---
Subjective HISTORY OF PRESENT ILLNESS: This is a 63-year-old male with a past medical history significant for congestive heart failure, dilated cardiomyopathy, sinus tachycardia, and questionable syncope. Patient follows in the office with Dr. Mcelroy. We have been asked to see the patient in consultation for possible atrial fibrillation and pericardial effusion. Patient examined at the bedside. patient is admitted to the hospital secondary to acute cholecystitis. He is status post arthroscopic cholecystectomy. Patient currently denies any chest pain or pressure. He denies any shortness of breath. Vital signs are stable. Telemetry reviewed revealing sinus mechanism with no signs of atrial fibrillation. 2-D echo originally reported atrial fibrillation. However after reviewing echocardiogram, there was no evidence of atrial fibrillation and patient remained in sinus mechanism. * EKG reveals sinus tachycardia with heart rate of 120. No signs of acute ischemia * Chest xray COPD with bilateral lower lobe infiltrate and small pleural effusion * Laboratory data: WBC 13.09. Hemoglobin 8.8. Platelet count 288. Sodium 136. Potassium 3.8. BUN 5.9. Creatinine 0.3. ProBNP 1220. * Current home cardiac medications include aspirin 81 mg daily, atorvastatin 40 mg at night, metoprolol succinate 25 mg daily * Echocardiogram obtained revealing ejection fraction 55-60%, mild TR with small pericardial effusion * Cardiac catheterization history: Unknown 06/16/2023 Patient examined this morning at the bedside. Patient currently denies chest pain or pressure. He denies shortness of breath. He does report an occasional cough. The patient had 2 troponins drawn yesterday resulting in 0.036 and 0.042. The reason for this is unknown. The patient denied having any chest pain or pressure. Lower extremity Doppler was completed which was negative for DVT. PHYSICAL EXAM: VITAL SIGNS: Reviewed. GENERAL: Well-developed in no acute distress. HEENT: Head is normocephalic. Pupils are equal, round. Sclerae anicteric. Mucous membranes of the mouth are moist. Neck supple. No JVD or thyromegaly LUNGS: Respirations even and unlabored. Lungs essentially clear to auscultation bilaterally. HEART: Regular rate and rhythm. S1 and S2 heard. ABDOMEN: Soft. Nondistended. Nontender. EXTREMITIES: Normal range of motion. No clubbing or cyanosis. Peripheral pulses intact. Bilateral lower extremity edema noted at the feet and ankles NEUROLOGIC: Awake and alert. Oriented x 3. ASSESSMENT: Leukocytosis Elevated lactic acid Acute cholecystitis, status post laparoscopic cholecystectomy Sinus tachycardia, no evidence of atrial fibrillation on EKG, telemetry, or echocardiogram Small pericardial effusion Lower extremity edema, likely secondary to malnutrition and hypoalbuminemia secondary to alcohol abuse History of dilated cardiomyopathy second to alcohol abuse History of questionable syncope History of alcohol abuse Protein calorie malnutrition secondary to alcohol abuse Abnormal troponins, flat, not suggestive of acute coronary syndrome PLAN: Continue current cardiac medications Continue telemetry monitoring Recommend continued abstinence from alcohol Patient may benefit from subacute rehab at discharge Patient is currently stable from a cardiac perspective We will sign off. Please reconsult if needed. Nurse practitioner note has been reviewed by physician. Signing provider agrees with the documented findings, assessment, and plan of care. Objective - Vital Signs Vital signs: Vital Signs Temp 97.6 F 06/16/23 07:46 Pulse 108 H 06/16/23 08:34 Resp 18 06/16/23 07:46 BP 106/69 06/16/23 07:46 Pulse Ox 90 L 06/16/23 07:46 FiO2 Intake & Output 06/15/23 06/16/23 06/16/23 18:59 06:59 18:59 Intake Total 238 Output Total 1400 420 Balance -1400 -420 238 Intake: Oral 238 Output: Urine 1400 420 Other: Voiding Method External Catheter External Catheter External Catheter # Bowel Movements 1 - Labs CBC & Chem 7: 06/16/23 05:39 06/16/23 05:39 Labs: Abnormal Lab Results - Last 24 Hours (Table) 06/15/23 06/15/23 06/16/23 Range/Units 15:52 22:20 05:39 WBC 12.1 H (3.8-10.6) k/uL RBC 3.42 L (4.30-5.90) m/uL Hgb 10.1 L (13.0-17.5) gm/dL Hct 30.4 L (39.0-53.0) % RDW 16.3 H (11.5-15.5) % Neutrophils # 9.9 H (1.3-7.7) k/uL Sodium (137-145) mmol/L Carbon Dioxide (22-30) mmol/L BUN (9-20) mg/dL Creatinine (0.66-1.25) mg/dL Calcium (8.4-10.2) mg/dL Troponin I 0.036 H* 0.042 H* (0.000-0.034) ng/mL 06/16/23 Range/Units 05:39 WBC (3.8-10.6) k/uL RBC (4.30-5.90) m/uL Hgb (13.0-17.5) gm/dL Hct (39.0-53.0) % RDW (11.5-15.5) % Neutrophils # (1.3-7.7) k/uL Sodium 132 L (137-145) mmol/L Carbon Dioxide 21 L (22-30) mmol/L BUN 7 L (9-20) mg/dL Creatinine 0.30 L (0.66-1.25) mg/dL Calcium 7.6 L (8.4-10.2) mg/dL Troponin I (0.000-0.034) ng/mL
--- NOTE | 2023-06-16 13:26 | P.PN ---
Subjective Progress Note Date: 06/15/23 Principal diagnosis: Leukocytosis possible cholecystitis Patient is a 63-year-old male with a past medical history significant for ND and memory impairment patient is a local retirement resident patient has been sent to the ER as the patient was noticed to be cold , patient on presentation the hospital did have elevated white count, patient did have severe abdominal pelvis because of his abdominal pain and tenderness with concern for tinnitus and possible cholecystitis. Patient is status post EGD on 06/09/2023 with mild gastritis, Patient is s/p cholecystectomy completed on 06/10/2023. On today's evaluation that is 06/15/2023, the patient continues to be afebrile, the patient is breathing comfortably on 3 L nasal cannula oxygen and denies any chest pain or cough, patient denies abdominal pain, and denies any nausea/vomiting or diarrhea Patient white count is slightly down to 13.58, creatinine is 0.4 as of yesterday, culture negative so far. Objective - Vital Signs Vital signs: Vital Signs Temp 97.4 F L 06/15/23 07:00 Pulse 56 L 06/15/23 07:00 Resp 18 06/15/23 07:00 BP 109/72 06/15/23 07:00 Pulse Ox 95 06/15/23 07:00 FiO2 Intake & Output 06/14/23 06/15/23 06/15/23 18:59 06:59 18:59 Intake Total 120 Output Total 1000 1150 800 Balance -880 -1150 -800 Intake: Oral 120 Output: Urine 1000 1150 800 Other: Voiding Method Urinal Diaper # Bowel Movements 1 - Exam GENERAL DESCRIPTION: An elderly male lying in bed in no distress RESPIRATORY SYSTEM: Unlabored breathing , decreased breath sounds at bases HEART: S1 S2 regular rate and rhythm , ABDOMEN: Soft , no tenderness EXTREMITIES: No edema feet - Labs CBC & Chem 7: 06/16/23 05:39 06/16/23 05:39 Labs: Abnormal Lab Results - Last 24 Hours (Table) 06/14/23 06/14/23 06/15/23 Range/Units 05:50 05:50 06:02 WBC 13.09 H 13.58 H (4.50-10.00) X 10*3/uL RBC 3.02 L 3.15 L (4.40-5.60) X 10*6/uL Hgb 8.8 L 8.9 L (13.0-17.0) d/dL Hct 28.0 L 28.7 L (39.6-50.0) % MCHC 31.4 L 31.0 L (32.0-37.0) d/dL RDW 16.6 H 16.9 H (11.5-14.5) % Neutrophils # 9.42 H 10.10 H (1.80-7.70) X 10*3/uL Eosinophils # 0.73 H 0.75 H (0.04-0.35) X 10*3/uL Sodium (135-145) mmol/L Carbon Dioxide (21.6-31.8) mmol/L Anion Gap (4.00-12.00) mmol/L BUN 5.9 L (9.0-27.0) mg/dL Creatinine 0.3 L (0.6-1.5) mg/dL Calcium 7.7 L (8.7-10.3) mg/dL AST 157 H (14-35) U/L ALT 69 H (10-49) U/L Alkaline Phosphatase 243 H (41-126) U/L C-Reactive Protein 4.10 H (0.00-0.80) mg/dL Total Protein 4.0 L (6.2-8.2) d/dL Albumin 2.0 L (3.8-4.9) d/dL Albumin/Globulin Ratio 1.00 L (1.60-3.17) Ratio 06/15/23 Range/Units 06:02 WBC (4.50-10.00) X 10*3/uL RBC (4.40-5.60) X 10*6/uL Hgb (13.0-17.0) d/dL Hct (39.6-50.0) % MCHC (32.0-37.0) d/dL RDW (11.5-14.5) % Neutrophils # (1.80-7.70) X 10*3/uL Eosinophils # (0.04-0.35) X 10*3/uL Sodium 134 L (135-145) mmol/L Carbon Dioxide 20.5 L (21.6-31.8) mmol/L Anion Gap 13.50 H (4.00-12.00) mmol/L BUN 6.3 L (9.0-27.0) mg/dL Creatinine 0.4 L (0.6-1.5) mg/dL Calcium 7.7 L (8.7-10.3) mg/dL AST 145 H (14-35) U/L ALT 62 H (10-49) U/L Alkaline Phosphatase 224 H (41-126) U/L C-Reactive Protein 5.80 H (0.00-0.80) mg/dL Total Protein 4.2 L (6.2-8.2) d/dL Albumin 1.9 L (3.8-4.9) d/dL Albumin/Globulin Ratio 0.83 L (1.60-3.17) Ratio Assessment and Plan (1) Cholecystitis Current Visit: Yes Status: Acute Code(s): K81.9 - CHOLECYSTITIS, UNSPECIFIED SNOMED Code(s): 61856784 (2) Leukocytosis Current Visit: Yes Status: Acute Code(s): D72.829 - ELEVATED WHITE BLOOD CELL COUNT, UNSPECIFIED SNOMED Code(s): 784705641 Plan: 1patient with a leukocytosis in this patient who is retirement resident sent to the ER for nonspecific symptoms patient complaining of some cramps in lower abdominal area the patient was noted to be slightly tender on clinic examination also have elevated lactic acid likely abdominal source 2- CT of abdominal pelvis with contrast suggestive of duodenitis and possible cholecystitis Gen. surgery see the patient s/p cholecystectomy on 06/10/23 3Patient is afebrile and white count is trending down, patient to continue with the Zosyn and Diflucan and repeat CBC with a.m. lab, and monitor clinical course closely Dictation was produced using [employer] dictation software. please excuse any grammatical, word or spelling errors. Time with Patient: Less than 30
--- NOTE | 2023-06-16 13:27 | P.PN ---
Subjective Progress Note Date: 06/16/23 Principal diagnosis: Leukocytosis possible cholecystitis Patient is a 63-year-old male with a past medical history significant for AL and memory impairment patient is a local alf resident patient has been sent to the ER as the patient was noticed to be cold , patient on presentation the hospital did have elevated white count, patient did have severe abdominal pelvis because of his abdominal pain and tenderness with concern for tinnitus and possible cholecystitis. Patient is status post EGD on 06/09/2023 with mild gastritis, Patient is s/p cholecystectomy completed on 06/10/2023. On today's evaluation that is 06/16/2023, the patient remains to be afebrile, the patient is breathing comfortably on 3 L nasal cannula supplemental oxygen and denies any shortness of breath, the patient denies having any chest pain or cough, patient denies nausea/vomiting /diarrhea and no abdominal pain, Patient white count is slightly down to 12.1, creatinine is 0.30, culture negative so far. Objective - Vital Signs Vital signs: Vital Signs Temp 97.6 F 06/16/23 07:46 Pulse 108 H 06/16/23 08:34 Resp 18 06/16/23 07:46 BP 106/69 06/16/23 07:46 Pulse Ox 90 L 06/16/23 07:46 FiO2 Intake & Output 06/15/23 06/16/23 06/16/23 18:59 06:59 18:59 Intake Total 238 Output Total 1400 420 Balance -1400 -420 238 Intake: Oral 238 Output: Urine 1400 420 Other: Voiding Method External Catheter External Catheter External Catheter # Bowel Movements 1 - Exam GENERAL DESCRIPTION: An elderly male lying in bed in no distress RESPIRATORY SYSTEM: Unlabored breathing , decreased breath sounds at bases HEART: S1 S2 regular rate and rhythm , ABDOMEN: Soft , no tenderness EXTREMITIES: No edema feet - Labs CBC & Chem 7: 06/16/23 05:39 06/16/23 05:39 Labs: Abnormal Lab Results - Last 24 Hours (Table) 06/15/23 06/15/23 06/16/23 Range/Units 15:52 22:20 05:39 WBC 12.1 H (3.8-10.6) k/uL RBC 3.42 L (4.30-5.90) m/uL Hgb 10.1 L (13.0-17.5) gm/dL Hct 30.4 L (39.0-53.0) % RDW 16.3 H (11.5-15.5) % Neutrophils # 9.9 H (1.3-7.7) k/uL Sodium (137-145) mmol/L Carbon Dioxide (22-30) mmol/L BUN (9-20) mg/dL Creatinine (0.66-1.25) mg/dL Calcium (8.4-10.2) mg/dL Troponin I 0.036 H* 0.042 H* (0.000-0.034) ng/mL 06/16/23 Range/Units 05:39 WBC (3.8-10.6) k/uL RBC (4.30-5.90) m/uL Hgb (13.0-17.5) gm/dL Hct (39.0-53.0) % RDW (11.5-15.5) % Neutrophils # (1.3-7.7) k/uL Sodium 132 L (137-145) mmol/L Carbon Dioxide 21 L (22-30) mmol/L BUN 7 L (9-20) mg/dL Creatinine 0.30 L (0.66-1.25) mg/dL Calcium 7.6 L (8.4-10.2) mg/dL Troponin I (0.000-0.034) ng/mL Assessment and Plan (1) Cholecystitis Current Visit: Yes Status: Acute Code(s): K81.9 - CHOLECYSTITIS, UNSPECIFIED SNOMED Code(s): 65928968 (2) Leukocytosis Current Visit: Yes Status: Acute Code(s): D72.829 - ELEVATED WHITE BLOOD CELL COUNT, UNSPECIFIED SNOMED Code(s): 901422167 Plan: 1patient with a leukocytosis in this patient who is alf resident sent to the ER for nonspecific symptoms patient complaining of some cramps in lower abdominal area the patient was noted to be slightly tender on clinic examination also have elevated lactic acid likely abdominal source 2- CT of abdominal pelvis with contrast suggestive of duodenitis and possible cholecystitis Gen. surgery see the patient s/p cholecystectomy on 06/10/23 3Patient is afebrile and white count is trending down, patient to continue with the Zosyn and Diflucan with a plan to finish therapy with oral Augmentin and Diflucan 7 days, this was discussed with VACUUM TECHNICIAN for admitting team working on discharge Dictation was produced using [employer] dictation software. please excuse any grammatical, word or spelling errors. Time with Patient: Less than 30
[2023-06-16] MEDS: FUROSEMIDE 10 MG/ML 2 ML VIAL IV SCH (13:45)
--- NOTE | 2023-06-16 14:16 | P.PN ---
Subjective Progress Note Date: 06/16/23 I was asked to better with this patient for bilateral pleural effusions. Is a 63-year-old male patient with known history of dilated cardiomyopathy/CHF in addition to previous history of alcohol abuse. The patient has chronic memory impairment and he is a alf resident. The patient presented to the hospital because of pain and leukocytosis and mild lactic acidosis. Initial chest x-ray showed some mild pulmonary vascular congestion. He was also having some crampy abdominal pain along with nausea without any emesis. The patient was seen by general surgery and the medical team. The patient was evaluated for possible cholecystitis. CAT scan of the abdomen and pelvis reported findings in the distal duodenum suggestive of duodenitis. No evidence of any bowel obstruction. Small bilateral pleural effusions. There is some compressive atelectatic change in lung bases. Gallbladder was contracted with mild wall thickening and pericholecystic fluid. Based on that, the patient underwent an EGD and the patient was found to have antral gastritis and esophagitis and subsequently the patient underwent a laparoscopic cholecystectomy on 06/10/2023. The patient is currently on 3 L of oxygen by nasal cannula. Most recent chest x-ray shows small bites the pleural effusions. Echocardiogram showed a preserved LV function with an EF of around 55-60%. Mild tricuspid regurgitation and mild pericardial effusion. Hemoglobin is 8.8 with a platelet count of 288, sodium is at 136, BUN is at 5 with a creatinine of 0.3. ProBNP level is 1220. The patient remains on IV Zosyn. Patient is also on Diflucan. Infectious diseases on the case. Today's evaluation of 06/16/2023, the patient is clinically stable and hemodynamically stable on 3 L of oxygen by nasal cannula. No signs of any respiratory distress. The echoes at 12.1, creatinine is at 0.3. The patient is using the senna spirometer. The patient is afebrile. The vesicles of 12.4 with a hemoglobin of 10.1, sodium is at 132, BUN is at 7 with a creatinine of 0.3 and a blood sugars at 78. He remains on IV Zosyn and Diflucan Fridays recommendation. Is on Lovenox for DVT prophylaxis. He is also receiving DuoNeb nebulized treatments [id number]. Objective - Vital Signs Vital signs: Vital Signs Temp 97.6 F 06/16/23 13:51 Pulse 117 H 06/16/23 13:51 Resp 20 06/16/23 13:51 BP 95/61 06/16/23 13:51 Pulse Ox 97 06/16/23 13:51 FiO2 Intake & Output 06/15/23 06/16/23 06/16/23 18:59 06:59 18:59 Intake Total 356 Output Total 1400 420 Balance -1400 -420 356 Intake: Oral 356 Output: Urine 1400 420 Other: Voiding Method External Catheter External Catheter External Catheter # Bowel Movements 1 - Exam GENERAL: Well-developed in no acute distress. The patient is calm and comfortable patient is currently on 3 L of oxygen by nasal cannula Head exam was generally normal. There was no scleral icterus or corneal arcus. Mucous membranes were moist. HEENT: Head is normocephalic. Pupils are equal, round. Sclerae anicteric. Mucous membranes of the mouth are moist. Neck supple. No JVD or thyromegaly LUNGS: Respirations even and unlabored. Lungs essentially clear to auscultation bilaterally. HEART: Regular rate and rhythm. S1 and S2 heard. ABDOMEN: Soft. Nondistended. Nontender. Abdominal surgical 1 sets of dry clean and intact EXTREMITIES: Normal range of motion. No clubbing or cyanosis. Peripheral puls es intact. Bilateral lower extremity edema noted at the feet and ankles NEUROLOGIC: Awake and alert. Oriented x 3. He is a poor historian and he has obvious memory deficits and cognitive impairment - Labs CBC & Chem 7: 06/16/23 05:39 06/16/23 05:39 Labs: Abnormal Lab Results - Last 24 Hours (Table) 06/15/23 06/15/23 06/16/23 Range/Units 15:52 22:20 05:39 WBC 12.1 H (3.8-10.6) k/uL RBC 3.42 L (4.30-5.90) m/uL Hgb 10.1 L (13.0-17.5) gm/dL Hct 30.4 L (39.0-53.0) % RDW 16.3 H (11.5-15.5) % Neutrophils # 9.9 H (1.3-7.7) k/uL Sodium (137-145) mmol/L Carbon Dioxide (22-30) mmol/L BUN (9-20) mg/dL Creatinine (0.66-1.25) mg/dL Calcium (8.4-10.2) mg/dL Troponin I 0.036 H* 0.042 H* (0.000-0.034) ng/mL 06/16/23 Range/Units 05:39 WBC (3.8-10.6) k/uL RBC (4.30-5.90) m/uL Hgb (13.0-17.5) gm/dL Hct (39.0-53.0) % RDW (11.5-15.5) % Neutrophils # (1.3-7.7) k/uL Sodium 132 L (137-145) mmol/L Carbon Dioxide 21 L (22-30) mmol/L BUN 7 L (9-20) mg/dL Creatinine 0.30 L (0.66-1.25) mg/dL Calcium 7.6 L (8.4-10.2) mg/dL Troponin I (0.000-0.034) ng/mL Assessment and Plan Plan: Moderate bilateral pleural effusion, likely reactive, to be monitored. No indication for pneumonia, right more than left Acute hypoxic respiratory failure currently on 3 L of oxygen by nasal cannula Acute cholecystitis post-laparoscopic cholecystectomy and this was done on 06/10/2023 Mild duodenitis and antritis and gastritis History of dilated cardiomyopathy secondary to alcohol abuse. The patient has a preserved ejection fraction of 55-60% Small pericardial effusion History of alcohol abuse History of protein calorie malnutrition secondary to chronic alcoholism retirement resident Mild leukocytosis Normocytic anemia of chronic disease Plan Overall condition is stable. Respiratory status stable and the patient remains on 3 L of oxygen by nasal cannula. No need for any thoracentesis at this point in time. The pleural effusions are moderate to large, 11.8 cm of the right Ultrasound of the chest was noted Continue IV Zosyn Continue bronchodilators Incentive spirometer Wean FiO2 as tolerated to maintain saturation above 90% Advance diet as tolerated We'll follow, will plan for thoracentesis of the next 24-48 hours based on his progress.
--- NOTE | 2023-06-16 14:19 | P.PN ---
Subjective Progress Note Date: 06/16/23 CHIEF COMPLAINT: Abdominal pain HISTORY OF PRESENT ILLNESS: Patient is postop day #6 status post laparoscopic cholecystectomy. He had EGD on 06/09/23 showing antral gastritis and mild esophagitis. Patient denies any abdominal pain. He has been having bowel movements. Denies any nausea or vomiting. Tolerating diet. Afebrile. WBC down to 12.1 hgb up 8.9 to 10. Bilateral pleural effusions. Seen by pulmonary service. They're considering possible thoracentesis. PHYSICAL EXAM: VITAL SIGNS: Reviewed. GENERAL: Well-developed in no acute distress. ABDOMEN: Soft. Nondistended. Nontender Incision sites clean dry and intact NEUROLOGIC: Confused ASSESSMENT: 1. Acute Cholecystitis status post laparoscopic cholecystectomy 2. Gastritis and mild esophagitis noted on EGD 3. Leukocytosis PLAN: -Continue regular diet -Continue antibiotics per ID service -Continue Protonix -Encouraged patient to use incentive spirometer -Encouraged patient to increase activity level Physician [employer] Lab[employer] note has been reviewed by physician. Signing provider agrees with the documented findings, assessment, and plan of care. Objective - Vital Signs Vital signs: Vital Signs Temp 97.6 F 06/16/23 13:51 Pulse 117 H 06/16/23 13:51 Resp 20 06/16/23 13:51 BP 95/61 06/16/23 13:51 Pulse Ox 97 06/16/23 13:51 FiO2 Intake & Output 06/15/23 06/16/23 06/16/23 18:59 06:59 18:59 Intake Total 356 Output Total 1400 420 Balance -1400 -420 356 Intake: Oral 356 Output: Urine 1400 420 Other: Voiding Method External Catheter External Catheter External Catheter # Bowel Movements 1 - Labs CBC & Chem 7: 06/16/23 05:39 06/16/23 05:39 Labs: Abnormal Lab Results - Last 24 Hours (Table) 06/15/23 06/15/23 06/16/23 Range/Units 15:52 22:20 05:39 WBC 12.1 H (3.8-10.6) k/uL RBC 3.42 L (4.30-5.90) m/uL Hgb 10.1 L (13.0-17.5) gm/dL Hct 30.4 L (39.0-53.0) % RDW 16.3 H (11.5-15.5) % Neutrophils # 9.9 H (1.3-7.7) k/uL Sodium (137-145) mmol/L Carbon Dioxide (22-30) mmol/L BUN (9-20) mg/dL Creatinine (0.66-1.25) mg/dL Calcium (8.4-10.2) mg/dL Troponin I 0.036 H* 0.042 H* (0.000-0.034) ng/mL 06/16/23 Range/Units 05:39 WBC (3.8-10.6) k/uL RBC (4.30-5.90) m/uL Hgb (13.0-17.5) gm/dL Hct (39.0-53.0) % RDW (11.5-15.5) % Neutrophils # (1.3-7.7) k/uL Sodium 132 L (137-145) mmol/L Carbon Dioxide 21 L (22-30) mmol/L BUN 7 L (9-20) mg/dL Creatinine 0.30 L (0.66-1.25) mg/dL Calcium 7.6 L (8.4-10.2) mg/dL Troponin I (0.000-0.034) ng/mL
--- NOTE | 2023-06-16 15:52 | P.PN ---
Subjective Progress Note Date: 06/16/23 This is a 63-year-old male who was recently admitted with multiple medical consultations following for weakness and is recently postoperative cholecystectomy with general surgery following. Patient was seen and evaluated by cardiology as well with concerns of possible pericardial effusion recommending outpatient follow-up. Patient was continued on IV Lasix and also pulmonary consultation for right pleural effusion. Patient is diuresing well on Lasix will continue overnight with no plans of thoracentesis at this time. Patient will need outpatient follow-up with consultations. Patient is continued on antibiotics with infectious disease following and will continue IV antibiotics for 1 more night and transitioned oral Augmentin on discharge. Patient with significant weakness will be returning to [facility] in the next 24 hours. Patient encouraged to use incentive spirometer at least 10 times every hour while awake. Wean FiO2 as tolerated. Encouraged oral intake. Review of systems: Constitutional: No reports of fatigue, fever, or chills Cardiovascular: No reports of chest pain or palpitations Respiratory: No reports of worsening shortness of breath or cough GI: No reports of nausea, no reports of vomiting, no diarrhea : No reports of dysuria or retention Neurovascular: reports of generalized weakness All medications have been reviewed Active Medications Acetaminophen (Acetaminophen Tab 325 Mg Tab) 650 mg PO Q6HR PRN PRN Reason: Fever and/ or Mild Pain Last Admin: 06/08/23 23:03 Dose: 650 mg Hydrocodone Bitart/Acetaminophen (Hydrocodone/Apap 5-325mg 1 Each Tab) 1 each PO Q4HR PRN PRN Reason: Pain Last Admin: 06/14/23 00:42 Dose: 1 each Albuterol/Ipratropium (Ipratropium-Albuterol 3 Ml Neb) 3 ml INHALATION RT-QID [facility] Last Admin: 06/16/23 12:10 Dose: 3 ml Atorvastatin Calcium (Atorvastatin 40 Mg Tab) 40 mg PO HS [facility] Last Admin: 06/15/23 19:48 Dose: 40 mg Budesonide (Budesonide 0.5 Mg/2 Ml Nebu) 0.5 mg INHALATION RT-BID [facility] Last Admin: 06/16/23 08:15 Dose: 0.5 mg Divalproex Sodium (Divalproex Er 250 Mg Tab.Er.24h) 250 mg PO DAILY [facility] Last Admin: 06/16/23 08:44 Dose: 250 mg Enoxaparin Sodium (Enoxaparin 40 Mg/0.4 Ml Syringe) 40 mg SQ DAILY [facility] Last Admin: 06/16/23 08:43 Dose: 40 mg Fluconazole (Fluconazole 100 Mg Tab) 100 mg PO DAILY [facility]; Protocol Last Admin: 06/16/23 08:44 Dose: 100 mg Folic Acid (Folic Acid 1 Mg Tab) 1 mg PO DAILY [facility] Last Admin: 06/16/23 08:44 Dose: 1 mg Furosemide (Furosemide 10 Mg/Ml 2 Ml Vial) 20 mg IV DAILY [facility] Last Admin: 06/16/23 13:45 Dose: 20 mg Hydromorphone HCl (Hydromorphone 1 Mg/Ml 1 Ml Syringe) 1 mg IVP Q3HR PRN PRN Reason: Pain Piperacillin Sod/Tazobactam (Sod 3.375 gm/ Sodium Chloride) 100 mls @ 25 mls/hr IVPB Q8HR [facility]; Protocol Last Admin: 06/16/23 08:43 Dose: 25 mls/hr Lactulose (Lactulose 20 Gm/30 Ml Cup) 20 gm PO BID [facility] Last Admin: 06/16/23 08:45 Dose: Not Given Midodrine (Midodrine 5 Mg Tab) 5 mg PO TID@0900,1300,1800 [facility] Last Admin: 06/16/23 13:45 Dose: 5 mg Mirtazapine (Mirtazapine 15 Mg Tab) 7.5 mg PO DAILY@1700 [facility] Last Admin: 06/15/23 16:00 Dose: 7.5 mg Miscellaneous Information (Magnesium Replacement Protocol 1 Each Misc) 1 each MISCELLANE DAILY PRN; Protocol PRN Reason: Per Protocol Multivitamins (Multivitamins, Thera 1 Each Tab) 1 each PO DAILY [facility] Last Admin: 06/16/23 08:44 Dose: 1 each Naloxone HCl (Naloxone 0.4 Mg/Ml 1 Ml Vial) 0.2 mg IV Q2M PRN PRN Reason: Opioid Reversal Pantoprazole Sodium (Pantoprazole 40 Mg/10 Ml Vial) 40 mg IVP DAILY [facility] Last Admin: 06/16/23 08:45 Dose: 40 mg Potassium Chloride (Potassium Chloride Er 20 Meq Tab.Er) 20 meq PO DAILY [facility] Last Admin: 06/16/23 08:44 Dose: 20 meq Tamsulosin HCl (Tamsulosin 0.4 Mg Cap.Er.24h) 0.4 mg PO PC-BRKFST [facility] Last Admin: 06/16/23 08:43 Dose: 0.4 mg Thiamine HCl (Thiamine 100 Mg Tab) 100 mg PO DAILY [facility] Last Admin: 06/16/23 08:44 Dose: 100 mg PHYSICAL EXAMINATION: GENERAL: The patient is alert and oriented x3, thin built, emaciated, cachectic, elderly-appearing HEENT: Pupils are round and equally reacting to light. EOMI. no scleral icterus. No conjunctival pallor. Normocephalic, atraumatic. No pharyngeal erythema. No thyromegaly. CARDIOVASCULAR: S1 and S2 muffled PULMONARY: diminished breath sounds bilaterally with some scattered rhonchi and crackles noted at the bases ABDOMEN: soft. Nontender on exam. non-distended, normoactive bowel sounds. No palpable organomegaly. MUSCULOSKELETAL: No joint swelling or deformity. EXTREMITIES: No cyanosis, clubbing, or pedal edema. NEUROLOGICAL: Gross neurological examination did not reveal any focal deficits. Diffuse weakness SKIN: No rashes. Assessment: Status post cholecystectomy Shortness of breath with bilateral pleural effusions, pneumonia ruled out Acute hypoxic respiratory failure secondary to bilateral pleural effusions History of dilated cardiomyopathy secondary to alcohol abuse, reserved EF of 55- 60% Possible chronic obstructive pulmonary disease Memory impairment hyperlipidemia history History of alcohol abuse Moderate protein calorie malnutrition with a BMI of 14.1 Anemia of chronic disease History of myocardial infarction GI prophylaxis DVT prophylaxis Full code Plan: Patient with multiple medical consultations following including pulmonary with no concerns of pneumonia and does have bilateral pleural effusions and diuresing well and will hold overnight with continued IV Lasix and transitioned to low dose oral Lasix on discharge Infectious disease following along with general surgery and we'll transition to oral Augmentin on discharge for 1 week. General surgery recommending outpatient follow-up and has cleared the patient for discharge Patient continues with significant weakness and will be returning to [facility] Encouraged incentive spirometer use at least 10 times every hour while awake Continue supplemental oxygen and wean FiO2 as tolerated Case management following arranging for discharge planning with probable discharge to ECF in 24 hours Due to multiple complex medical issues, prognosis is guarded The impression and plan of care has been dictated by Alice Castro, nurse practitioner as directed. Dr. Jona MD I have performed a history and examination and MDM of this patient, discussed the same with the dictator, and agree with the dictator's assessment and plan as written ,documented as a scribe. Based on total visit time, I have performed more than 50% of the visit. Any additional findings or plans will be noted. Objective - Vital Signs Vital signs: Vital Signs Temp 97.6 F 06/16/23 07:46 Pulse 112 H 06/16/23 12:22 Resp 18 06/16/23 07:46 BP 106/69 06/16/23 07:46 Pulse Ox 90 L 06/16/23 07:46 FiO2 Intake & Output 06/15/23 06/16/23 06/16/23 18:59 06:59 18:59 Intake Total 238 Output Total 1400 420 Balance -1400 -420 238 Intake: Oral 238 Output: Urine 1400 420 Other: Voiding Method External Catheter External Catheter External Catheter # Bowel Movements 1 - Labs CBC & Chem 7: 06/16/23 05:39 06/16/23 05:39 Labs: Abnormal Lab Results - Last 24 Hours (Table) 06/15/23 06/15/23 06/16/23 Range/Units 15:52 22:20 05:39 WBC 12.1 H (3.8-10.6) k/uL RBC 3.42 L (4.30-5.90) m/uL Hgb 10.1 L (13.0-17.5) gm/dL Hct 30.4 L (39.0-53.0) % RDW 16.3 H (11.5-15.5) % Neutrophils # 9.9 H (1.3-7.7) k/uL Sodium (137-145) mmol/L Carbon Dioxide (22-30) mmol/L BUN (9-20) mg/dL Creatinine (0.66-1.25) mg/dL Calcium (8.4-10.2) mg/dL Troponin I 0.036 H* 0.042 H* (0.000-0.034) ng/mL 06/16/23 Range/Units 05:39 WBC (3.8-10.6) k/uL RBC (4.30-5.90) m/uL Hgb (13.0-17.5) gm/dL Hct (39.0-53.0) % RDW (11.5-15.5) % Neutrophils # (1.3-7.7) k/uL Sodium 132 L (137-145) mmol/L Carbon Dioxide 21 L (22-30) mmol/L BUN 7 L (9-20) mg/dL Creatinine 0.30 L (0.66-1.25) mg/dL Calcium 7.6 L (8.4-10.2) mg/dL Troponin I (0.000-0.034) ng/mL
[2023-06-16] MEDS: MIRTAZAPINE 15 MG TAB PO SCH (17:10)
[2023-06-16] MEDS: ATORVASTATIN 40 MG TAB PO SCH (20:07)
--- NOTE | 2023-06-16 23:02 | PN ---
PROGRESS NOTE DATE OF SERVICE: 06/16/2023 SUBJECTIVE: This is a 63-year-old gentleman who was admitted after cholecystectomy, is improving significantly. No chest pain, no palpitation. The patient had some pleural effusion. Moderate right pleural effusion was noted. No chest pain, no palpitation. OBJECTIVE: VITAL SIGNS: Pulse is 109, blood pressure n, respirations 18. CHEST: Few scattered rhonchi and crackles. ABDOMEN: Soft, status post surgery. LABORATORY DATA: Noted. ASSESSMENT: 1. Status post cholecystectomy. 2. Shortness of breath, bilateral pleural effusion, right more than the left versus pneumonia. 3. Chronic obstructive pulmonary disease. 4. Rule out CHF. 5. Memory impairment. 6. History of myocardial infarction. 7. Gait dysfunction. RECOMMENDATIONS: Recommended to continue current medications, continue symptomatic treatment, otherwise closely follow with Pulmonary and rest of the consultants, possible pleural tap. Otherwise, antibiotics, bronchodilators. Guarded prognosis. Further recommendations to follow. See orders for details. PT, OT evaluation, possible ECF rehab. See orders for details. MMODL / IJN: [id number] / MTDD
[2023-06-17] MEDS: IPRATROPIUM-ALBUTEROL 3 ML NEB INHALATION SCH ×4 (08:07→20:32)
[2023-06-17] MEDS: BUDESONIDE 0.5 MG/2 ML NEBU INHALATION SCH ×2 (08:07→20:32)
[2023-06-17] MEDS: PIPERACILLIN-TAZOBACTAM 3.375 GM in SODIUM CHLORIDE 0.9% 100 ML IVPB SCH ×2 (09:35→18:02)
[2023-06-17] MEDS: DIVALPROEX ER 250 MG TAB.ER.24H PO SCH (09:36)
[2023-06-17] MEDS: PANTOPRAZOLE 40 MG/10 ML VIAL IVP SCH (09:36)
[2023-06-17] MEDS: TAMSULOSIN 0.4 MG CAP.ER.24H PO SCH (09:36)
[2023-06-17] MEDS: ENOXAPARIN 40 MG/0.4 ML SYRINGE SQ SCH (09:36)
[2023-06-17] MEDS: LACTULOSE 20 GM/30 ML CUP PO SCH ×2 (09:37→21:44)
[2023-06-17] MEDS: FOLIC ACID 1 MG TAB PO SCH (09:37)
[2023-06-17] MEDS: MIDODRINE 5 MG TAB PO SCH ×3 (09:37→19:09)
[2023-06-17] MEDS: FUROSEMIDE 10 MG/ML 2 ML VIAL IV SCH (09:37)
[2023-06-17] MEDS: FLUCONAZOLE 100 MG TAB PO SCH (09:37)
[2023-06-17] MEDS: POTASSIUM CHLORIDE ER 20 MEQ TAB.ER PO SCH (09:38)
[2023-06-17] MEDS: THIAMINE 100 MG TAB PO SCH (09:38)
[2023-06-17] MEDS: MULTIVITAMINS, THERA 1 EACH TAB PO SCH (09:38)
[2023-06-17 10:35] LABS: Basophils # (A) 0.05 X 10*3/uL (0.00-0.10); Basophils % (A) 0.4 %; Eosinophils # (A) 0.51 X 10*3/uL (0.04-0.35); Eosinophils % (A) 4.3 %; HCT 27.8 % (39.6-50.0); HGB 8.6 d/dL (13.0-17.0); Lymphocytes # (A) 1.31 X 10*3/uL (0.90-5.00); Lymphocytes % (A) 11.1 %; MCH 27.8 pg (27.0-32.0); MCHC 30.9 d/dL (32.0-37.0); Mean Platelet Volume 9.8 FL (9.5-12.2); Monocytes # (A) 0.77 X 10*3/uL (0.20-1.00); Monocytes % (A) 6.5 %; NRBC Per 100 WBC 0 X 10*3/uL (0.00-0.01); Neutrophils # (A) 9.05 X 10*3/uL (1.80-7.70); Neutrophils % (A) 77.1 %; Platelet Count 297 X 10*3/uL (140-440); RBC 3.09 X 10*6/uL (4.40-5.60); WBC 11.76 X 10*3/uL (4.50-10.00)
[2023-06-17 10:58] LABS: ALT 54 U/L (10-49); AST 106 U/L (14-35); Albumin 2.3 d/dL (3.8-4.9); Alkaline Phosphatase 219 U/L (41-126); BUN/Creat Ratio 22.33 Ratio (12.00-20.00); Blood Urea Nitrogen 6.7 mg/dL (9.0-27.0); Calcium 7.7 mg/dL (8.7-10.3); Carbon Dioxide 22.5 mmol/L (21.6-31.8); Chloride 105 mmol/L (96-109); Globulin 2.3 d/dL (1.6-3.3); Glucose 111 mg/dL (70-110); Potassium 3.7 mmol/L (3.5-5.5); Sodium 137 mmol/L (135-145); Total Bilirubin <0.2 mg/dL (0.3-1.2); Total Protein 4.6 d/dL (6.2-8.2)
--- NOTE | 2023-06-17 13:32 | P.DS ---
Providers Date of admission: 06/08/23 11:57 Expected date of discharge: 06/17/23 Attending physician: Luther Tenorio Consults: 06/07/23 10:29 Consult Physician Routine Consulting Provider: Efraín Smart Consult Reason/Comments: Leukocytosis/sepsis Do you want consulting provider notified?: Yes 06/15/23 15:11 Consult Physician Routine Consulting Provider: Ana Enriquez Consult Reason/Comments: bilat pleural effusion? Do you want consulting provider notified?: Yes Primary care physician: Sandra Graves Hospital Course: Final diagnosis Status post cholecystectomy Shortness of breath with bilateral pleural effusions, pneumonia ruled out Acute hypoxic respiratory failure secondary to bilateral pleural effusions History of dilated cardiomyopathy secondary to alcohol abuse, reserved EF of 55- 60% chronic obstructive pulmonary disease, acute exacerbation Memory impairment hyperlipidemia history History of alcohol abuse Moderate protein calorie malnutrition with a BMI of 14.1 Anemia of chronic disease History of myocardial infarction GI prophylaxis DVT prophylaxis Full code Discharge disposition Patient is being discharged in a stable condition with guarded prognosis to [facility]. Patient will follow-up with Dr. Graves in the outpatient setting upon discharge. Patient is to continue with hemodialysis as scheduled. Total time taken is greater than 35 minutes. Hospital course This is a 63-year-old male who was recently admitted with weakness and recently underwent cholecystectomy with general surgery. Patient also being evaluated by pulmonary along with cardiology with concerns of pericardial effusion and pleural effusions. Patient has been continued on diuresis and will continue with Lasix 20 mg daily and recommend repeat CBC, BMP, magnesium and close outpatient follow-up with cardiology as well as pulmonary in the outpatient setting. Patient maintained on DuoNeb treatments and recommend continue. Patient also being evaluated and followed closely by infectious disease and was maintained on IV antibiotics and we'll transition to oral Augmentin for 1 week on discharge. Patient will be returning to ECF for continued strength and mobility. Encouraged incentive spirometer at least 10 times every hour while awake and encouraged oral intake. Please refer to other consultation notes for further HPI. Currently no reports of chest pain, shortness of breath, or palpitations. Patient is afebrile. No reports of nausea or vomiting and patient is tolerating diet. Patient will be going to [facility] today. Guarded prognosis and high risk for readmission given patient's significant comorbidities. Physical exam: Gen: This is a 63-year-old male who is awake, alert and oriented 3, thin built, cachectic, appears much older than stated age, elderly appearing HEENT: Head is atraumatic, normocephalic. Pupils equal, round. Sclerae is anicteric. NECK: Supple. No JVD. No lymphadenopathy. No thyromegaly. LUNGS: Diminished breath sounds bilaterally with some scattered rhonchi. No intercostal retractions. HEART: S1, S2 are muffled ABDOMEN: Soft. Thin, scaphoid Bowel sounds are present. No masses. No tende rness. EXTREMITIES: No pedal edema. No calf tenderness. NEUROLOGICAL: Patient is awake, alert and oriented x3. Cranial nerves 2 through 12 are grossly intact. Diffusely weak Please refer to medication reconciliation sheet for a list of medications. The impression and plan of care has been dictated by Alice Castro, Nurse Practitioner as directed. Dr. Jona MD I have performed a history and examination and MDM of this patient, discussed the same with the dictator, and agree with the dictator's assessment and plan as written ,documented as a scribe. Based on total visit time, I have performed more than 50% of the visit. Patient Condition at Discharge: Poor Plan - Discharge Summary New Discharge Prescriptions: New Amoxic-Pot Clav 875-125Mg [Augmentin 875-125] 1 tab PO Q12HR 7 Days #14 tab Ipratropium-Albuterol Nebulize [Duoneb 0.5 mg-3 mg/3 ml Soln] 3 ml INHALATION RT-QID each Tamsulosin [Flomax] 0.4 mg PO PC-BRKFST cap Enoxaparin [Lovenox] 40 mg SQ DAILY each HYDROcodone/APAP 5-325MG [[place] 5-325] 1 each PO Q6H PRN #4 tab PRN Reason: Pain Fluconazole [Diflucan] 100 mg PO DAILY 7 Days #7 tab Potassium Chloride ER [K-Dur 20] 20 meq PO DAILY tab Acetaminophen Tab [Tylenol] 650 mg PO Q6HR PRN tab PRN Reason: Fever and/ or Mild Pain Furosemide [Lasix] 20 mg PO DAILY #30 tab Continue Thiamine [Vitamin B-1] 100 mg PO DAILY Multivitamins, Thera [Multivitamin (formulary)] 1 tab PO DAILY Divalproex ER [Depakote ER] 250 mg PO DAILY Atorvastatin [Lipitor] 40 mg PO HS Midodrine [ProAmatine] 5 mg PO TID@0900,1300,1800 Lactulose 20 gm PO BID Lactose-Reduced Food [Ensure Plus] 1 can PO TID@0900,1300,2100 Budesonide [Pulmicort] 0.5 mg INHALATION RT-BID Amoxic-Pot Clav 875-125Mg [Augmentin 875-125] 1 tab PO Q12HR Mirtazapine 7.5 mg PO DAILY@1700 Omeprazole [PriLOSEC] 20 mg PO DAILY Folic Acid 1 mg PO DAILY Discontinued Ipratropium-Albuterol Nebulize [Duoneb 0.5 mg-3 mg/3 ml Soln] 3 ml INHALATION RT-BID Metoprolol Succinate (ER) [Toprol Xl] 25 mg PO DAILY Aspirin EC [Ecotrin Low Dose] 81 mg PO DAILY Discharge Medication List Amoxic-Pot Clav 875-125Mg [Augmentin 875-125] 1 tab PO Q12HR 06/06/23 [History] Atorvastatin [Lipitor] 40 mg PO HS 06/06/23 [History] Budesonide [Pulmicort] 0.5 mg INHALATION RT-BID 06/06/23 [History] Divalproex ER [Depakote ER] 250 mg PO DAILY 06/06/23 [History] Folic Acid 1 mg PO DAILY 06/06/23 [History] Lactose-Reduced Food [Ensure Plus] 1 can PO TID@0900,1300,2100 06/06/23 [History] Lactulose 20 gm PO BID 06/06/23 [History] Midodrine [ProAmatine] 5 mg PO TID@0900,1300,1800 06/06/23 [History] Mirtazapine 7.5 mg PO DAILY@1700 06/06/23 [History] Multivitamins, Thera [Multivitamin (formulary)] 1 tab PO DAILY 06/06/23 [History] Omeprazole [PriLOSEC] 20 mg PO DAILY 06/06/23 [History] Thiamine [Vitamin B-1] 100 mg PO DAILY 06/06/23 [History] Acetaminophen Tab [Tylenol] 650 mg PO Q6HR PRN tab 06/16/23 [Rx] Amoxic-Pot Clav 875-125Mg [Augmentin 875-125] 1 tab PO Q12HR 7 Days #14 tab 06/16/23 [Rx] Enoxaparin [Lovenox] 40 mg SQ DAILY each 06/16/23 [Rx] Fluconazole [Diflucan] 100 mg PO DAILY 7 Days #7 tab 06/16/23 [Rx] HYDROcodone/APAP 5-325MG [[place] 5-325] 1 each PO Q6H PRN #4 tab 06/16/23 [Rx] Ipratropium-Albuterol Nebulize [Duoneb 0.5 mg-3 mg/3 ml Soln] 3 ml INHALATION RT-QID each 06/16/23 [Rx] Potassium Chloride ER [K-Dur 20] 20 meq PO DAILY tab 06/16/23 [Rx] Tamsulosin [Flomax] 0.4 mg PO PC-BRKFST cap 06/16/23 [Rx] Furosemide [Lasix] 20 mg PO DAILY #30 tab 06/17/23 [Rx] Follow up Appointment(s)/Referral(s): Sandra Graves MD [Primary Care Provider] - 1-2 days Shantanu Herbert MD [STAFF PHYSICIAN] - 1 Week Ambulatory/Diagnostic Orders: Complete Blood Count w/diff [LAB.AMB] Time Frame: 3 Days, Location: None Selected Activity/Diet/Wound Care/Special Instructions: Patient is going to [facility] as tolerated Patient will continue on oral Augmentin twice daily for 1 week and close outpatient follow-up with cardiology, surgery, and pulmonary. Patient continue with regular diet dysphagia 3 chopped and recommend aspiration precautions with head of the bed elevated 30-45 and supervision with meals. Continue with ensure [employer] 3 times a day with meals, chocolate Continue incentive spirometer encouragement at least 10 times every hour while awake Patient have repeat CBC, BMP, magnesium in 2-3 days Discharge Disposition: TRANSFER TO SNF/ECF
--- NOTE | 2023-06-17 14:14 | P.PN ---
Subjective Progress Note Date: 06/17/23 This is a 63-year-old male who was recently admitted with multiple medical consultations following for weakness and is recently postoperative cholecystectomy with general surgery following. Patient was seen and evaluated by cardiology as well with concerns of possible pericardial effusion recommending outpatient follow-up. Patient was continued on IV Lasix and also pulmonary consultation for right pleural effusion. Patient is diuresing well on Lasix will continue overnight with no plans of thoracentesis at this time. Patient will need outpatient follow-up with consultations. Patient is continued on antibiotics with infectious disease following and will continue IV antibiotics for 1 more night and transitioned oral Augmentin on discharge. Patient with significant weakness will be returning to [facility] in the next 24 hours. Patient encouraged to use incentive spirometer at least 10 times every hour while awake. Wean FiO2 as tolerated. Encouraged oral intake. 06/17/2023 Patient is seen and evaluated in follow-up today with multiple medical consultations following. Patient did have chest ultrasound done yesterday showing a moderate right pleural effusion and pulmonary following with plans on possible thoracentesis. Patient was scheduled to be discharged today although continues with shortness of breath and continued on 2-3 L via nasal cannula. Will await pulmonary reevaluation for possible thoracentesis today. Patient is currently afebrile with no reports of worsening shortness of breath and denies chest pain. Patient tolerating oral intake needs encouragement with meals. Review of systems: Constitutional: No reports of fatigue, fever, or chills Cardiovascular: No reports of chest pain or palpitations Respiratory: No reports of worsening shortness of breath or cough GI: No reports of nausea, no reports of vomiting, no diarrhea : No reports of dysuria or retention Neurovascular: reports of generalized weakness All medications have been reviewed PHYSICAL EXAMINATION: GENERAL: The patient is alert and oriented x3, thin built, emaciated, cachec tic, elderly-appearing HEENT: Pupils are round and equally reacting to light. EOMI. no scleral icterus. No conjunctival pallor. Normocephalic, atraumatic. No pharyngeal erythema. No thyromegaly. CARDIOVASCULAR: S1 and S2 muffled PULMONARY: diminished breath sounds bilaterally with some scattered rhonchi and crackles noted at the bases , worse on the right ABDOMEN: soft. Nontender on exam. non-distended, normoactive bowel sounds. No palpable organomegaly. MUSCULOSKELETAL: No joint swelling or deformity. EXTREMITIES: No cyanosis, clubbing, or pedal edema. NEUROLOGICAL: Gross neurological examination did not reveal any focal deficits. Diffuse weakness SKIN: No rashes. Assessment: Status post cholecystectomy Shortness of breath with bilateral pleural effusions, pneumonia ruled out Acute hypoxic respiratory failure secondary to bilateral pleural effusions, worse on the right History of dilated cardiomyopathy secondary to alcohol abuse, reserved EF of 55- 60% Possible chronic obstructive pulmonary disease Memory impairment hyperlipidemia history History of alcohol abuse Moderate protein calorie malnutrition with a BMI of 14.1 Anemia of chronic disease History of myocardial infarction GI prophylaxis DVT prophylaxis Full code Plan: Patient with multiple medical consultations following including pulmonary with no concerns of pneumonia and does have bilateral pleural effusions and did have chest ultrasound done showing moderate to large sized right pleural effusion and pulmonary following discussing possible thoracentesis on the right. Will await pulmonary reevaluation. Infectious disease following along with general surgery and we'll transition to oral Augmentin on discharge for 1 week. General surgery recommending outpatient follow-up and has cleared the patient for discharge Patient continues with significant weakness and will be returning to [facility] Encouraged incentive spirometer use at least 10 times every hour while awake Continue supplemental oxygen and wean FiO2 as tolerated Case management following arranging for discharge planning with probable discharge to ECF in 24 hours Due to multiple complex medical issues, prognosis is guarded The impression and plan of care has been dictated by Alice Castro, nurse practitioner as directed. Dr. Jona MD I have performed a history and examination and MDM of this patient, discussed t he same with the dictator, and agree with the dictator's assessment and plan as written ,documented as a scribe. Based on total visit time, I have performed more than 50% of the visit. Any additional findings or plans will be noted. Objective - Vital Signs Vital signs: Vital Signs Temp 97.6 F 06/17/23 07:20 Pulse 116 H 06/17/23 11:36 Resp 18 06/17/23 07:20 BP 84/45 06/17/23 07:20 Pulse Ox 92 L 06/17/23 07:20 FiO2 Intake & Output 06/16/23 06/17/23 06/17/23 18:59 06:59 18:59 Intake Total 536 118 Output Total 550 700 Balance - 118 Weight 40.823 kg Intake: Oral 536 118 Output: Urine 550 700 Other: Voiding Method External Catheter External Catheter - Labs CBC & Chem 7: 06/17/23 06:43 06/17/23 06:43 Labs: Abnormal Lab Results - Last 24 Hours (Table) 06/17/23 06/17/23 Range/Units 06:43 06:43 WBC 11.76 H (4.50-10.00) X 10*3/uL RBC 3.09 L (4.40-5.60) X 10*6/uL Hgb 8.6 L (13.0-17.0) d/dL Hct 27.8 L (39.6-50.0) % MCHC 30.9 L (32.0-37.0) d/dL RDW 17.0 H (11.5-14.5) % Neutrophils # 9.05 H (1.80-7.70) X 10*3/uL Eosinophils # 0.51 H (0.04-0.35) X 10*3/uL BUN 6.7 L (9.0-27.0) mg/dL Creatinine 0.3 L (0.6-1.5) mg/dL BUN/Creatinine Ratio 22.33 H (12.00-20.00) Ratio Glucose 111 H (70-110) mg/dL Calcium 7.7 L (8.7-10.3) mg/dL Total Bilirubin <0.2 L (0.3-1.2) mg/dL AST 106 H (14-35) U/L ALT 54 H (10-49) U/L Alkaline Phosphatase 219 H (41-126) U/L Total Protein 4.6 L (6.2-8.2) d/dL Albumin 2.3 L (3.8-4.9) d/dL Albumin/Globulin Ratio 1.00 L (1.60-3.17) Ratio
--- NOTE | 2023-06-17 15:49 | P.PN ---
Subjective Progress Note Date: 06/17/23 I was asked to better with this patient for bilateral pleural effusions. Is a 63-year-old male patient with known history of dilated cardiomyopathy/CHF in addition to previous history of alcohol abuse. The patient has chronic memory impairment and he is a intermediate resident. The patient presented to the hospital because of pain and leukocytosis and mild lactic acidosis. Initial chest x-ray showed some mild pulmonary vascular congestion. He was also having some crampy abdominal pain along with nausea without any emesis. The patient was seen by general surgery and the medical team. The patient was evaluated for possible cholecystitis. CAT scan of the abdomen and pelvis reported findings in the distal duodenum suggestive of duodenitis. No evidence of any bowel obstruction. Small bilateral pleural effusions. There is some compressive atelectatic change in lung bases. Gallbladder was contracted with mild wall thickening and pericholecystic fluid. Based on that, the patient underwent an EGD and the patient was found to have antral gastritis and esophagitis and subsequently the patient underwent a laparoscopic cholecystectomy on 06/10/2023. The patient is currently on 3 L of oxygen by nasal cannula. Most recent chest x-ray shows small bites the pleural effusions. Echocardiogram showed a preserved LV function with an EF of around 55-60%. Mild tricuspid regurgitation and mild pericardial effusion. Hemoglobin is 8.8 with a platelet count of 288, sodium is at 136, BUN is at 5 with a creatinine of 0.3. ProBNP level is 1220. The patient remains on IV Zosyn. Patient is also on Diflucan. Infectious diseases on the case. Today's evaluation of 06/16/2023, the patient is clinically stable and hemodynamically stable on 3 L of oxygen by nasal cannula. No signs of any respiratory distress. The echoes at 12.1, creatinine is at 0.3. The patient is using the senna spirometer. The patient is afebrile. The vesicles of 12.4 with a hemoglobin of 10.1, sodium is at 132, BUN is at 7 with a creatinine of 0.3 and a blood sugars at 78. He remains on IV Zosyn and Diflucan Fridays recommendation. Is on Lovenox for DVT prophylaxis. He is also receiving DuoNeb nebulized treatments [id number]. On 06/17/2023, the patient has no complaints. Patient is on room air oxygen. In regards to pleural effusions, this has not caused any significant respiratory compromise. Based on his condition, I decided to pass on this procedure for the time being. The patient was off her diuretics. He is using the [employer] spirometer. He is quite debilitated. His serum albumin is at 1.9 and is improving is up to 2.3. I think those effusions are essentially reactive and there was ultimately improved as the patient's condition is getting better and his nutritional status improves. The white cycles of 11.7 with a hemoglobin of 8.6 and a platelet count of 297. Sodium level is at 137. Creatinine is at 0.3 Objective - Vital Signs Vital signs: Vital Signs Temp 97.6 F 06/17/23 07:20 Pulse 116 H 06/17/23 11:36 Resp 18 06/17/23 07:20 BP 84/45 06/17/23 07:20 Pulse Ox 92 L 06/17/23 07:20 FiO2 Intake & Output 06/16/23 06/17/23 06/17/23 18:59 06:59 18:59 Intake Total 536 118 Output Total 550 700 Balance -14 700 118 Weight 40.823 kg Intake: Oral 536 118 Output: Urine 550 700 Other: Voiding Method External Catheter External Catheter - Exam GENERAL: Well-developed in no acute distress. The patient is calm and comfortable patient is currently on 3 L of oxygen by nasal cannula Head exam was generally normal. There was no scleral icterus or corneal arcus. Mucous membranes were moist. HEENT: Head is normocephalic. Pupils are equal, round. Sclerae anicteric. Mucous membranes of the mouth are moist. Neck supple. No JVD or thyromegaly LUNGS: Respirations even and unlabored. Lungs essentially clear to auscultation bilaterally. HEART: Regular rate and rhythm. S1 and S2 heard. ABDOMEN: Soft. Nondistended. Nontender. Abdominal surgical 1 sets of dry clean and intact EXTREMITIES: Normal range of motion. No clubbing or cyanosis. Peripheral pulses intact. Bilateral lower extremity edema noted at the feet and ankles NEUROLOGIC: Awake and alert. Oriented x 3. He is a poor historian and he has obvious memory deficits and cognitive impairment - Labs CBC & Chem 7: 06/17/23 06:43 06/17/23 06:43 Labs: Abnormal Lab Results - Last 24 Hours (Table) 06/17/23 06/17/23 Range/Units 06:43 06:43 WBC 11.76 H (4.50-10.00) X 10*3/uL RBC 3.09 L (4.40-5.60) X 10*6/uL Hgb 8.6 L (13.0-17.0) d/dL Hct 27.8 L (39.6-50.0) % MCHC 30.9 L (32.0-37.0) d/dL RDW 17.0 H (11.5-14.5) % Neutrophils # 9.05 H (1.80-7.70) X 10*3/uL Eosinophils # 0.51 H (0.04-0.35) X 10*3/uL BUN 6.7 L (9.0-27.0) mg/dL Creatinine 0.3 L (0.6-1.5) mg/dL BUN/Creatinine Ratio 22.33 H (12.00-20.00) Ratio Glucose 111 H (70-110) mg/dL Calcium 7.7 L (8.7-10.3) mg/dL Total Bilirubin <0.2 L (0.3-1.2) mg/dL AST 106 H (14-35) U/L ALT 54 H (10-49) U/L Alkaline Phosphatase 219 H (41-126) U/L Total Protein 4.6 L (6.2-8.2) d/dL Albumin 2.3 L (3.8-4.9) d/dL Albumin/Globulin Ratio 1.00 L (1.60-3.17) Ratio Assessment and Plan Plan: Moderate bilateral pleural effusion, likely reactive, to be monitored. No indication for pneumonia, right more than left, stable, reactive, likely secondary to postop state, hypoproteinemia and the patient's abdomen was as low at 1.9 and this is a nutritional issue. Acute hypoxic respiratory failure , stable on 3 L of oxygen by nasal cannula Acute cholecystitis post-laparoscopic cholecystectomy and this was done on 06/10/2023 Hypoalbuminemia, nutritional Mild duodenitis and antritis and gastritis History of dilated cardiomyopathy secondary to alcohol abuse. The patient has a preserved ejection fraction of 55-60% Small pericardial effusion History of alcohol abuse History of protein calorie malnutrition secondary to chronic alcoholism assisted resident Mild leukocytosis, stable at 11.7 Normocytic anemia of chronic disease, stable at 8.6 Plan Overall condition is stable. Respiratory status stable and the patient remains on 3 L of oxygen by nasal cannula. No need for any thoracentesis at this point in time. The pleural effusions are moderate to large, 11.8 cm of the right Ultrasound of the chest was noted Continue IV Zosyn, this can be switched to oral antibiotics Continue bronchodilators Incentive spirometer Wean FiO2 as tolerated to maintain saturation above 90% Advance diet as tolerated May be discharged back to his facility to be followed up on outpatient basis.
[2023-06-17] MEDS: MIRTAZAPINE 15 MG TAB PO SCH (19:09)
[2023-06-17] MEDS: ATORVASTATIN 40 MG TAB PO SCH (21:44)
[2023-06-18] MEDS: PIPERACILLIN-TAZOBACTAM 3.375 GM in SODIUM CHLORIDE 0.9% 100 ML IVPB SCH ×2 (00:10→09:20)
[2023-06-18 06:42] VITALS: RESP 16
[2023-06-18 08:27] VITALS: BP 95/61; TEMP 97.8
[2023-06-18] MEDS: LACTULOSE 20 GM/30 ML CUP PO SCH (09:20)
[2023-06-18] MEDS: DIVALPROEX ER 250 MG TAB.ER.24H PO SCH (09:21)
[2023-06-18] MEDS: MIDODRINE 5 MG TAB PO SCH (09:21)
[2023-06-18] MEDS: THIAMINE 100 MG TAB PO SCH (09:21)
[2023-06-18] MEDS: TAMSULOSIN 0.4 MG CAP.ER.24H PO SCH (09:21)
[2023-06-18] MEDS: FOLIC ACID 1 MG TAB PO SCH (09:21)
[2023-06-18] MEDS: FLUCONAZOLE 100 MG TAB PO SCH (09:21)
[2023-06-18] MEDS: POTASSIUM CHLORIDE ER 20 MEQ TAB.ER PO SCH (09:21)
[2023-06-18] MEDS: MULTIVITAMINS, THERA 1 EACH TAB PO SCH (09:21)
[2023-06-18] MEDS: PANTOPRAZOLE 40 MG/10 ML VIAL IVP SCH (09:22)
[2023-06-18] MEDS: IPRATROPIUM-ALBUTEROL 3 ML NEB INHALATION SCH ×2 (09:22→13:02)
[2023-06-18] MEDS: ENOXAPARIN 40 MG/0.4 ML SYRINGE SQ SCH (09:22)
[2023-06-18] MEDS: BUDESONIDE 0.5 MG/2 ML NEBU INHALATION SCH (09:22)
[2023-06-18 13:15] VITALS: PULSE 104
== END 2023-06-18 14:12 | DRG 853 ==
LOC: EC 21:11 → EEVIPCON 21:11 → 6NMEDSUR 06-07 03:31 → EEVIPCON 06-07 03:31 → 6NMEDSUR 06-07 05:43 → OBSVTOIN 06-08 11:57 → 6NMEDSUR 06-15 02:47
PROVIDERS: ADMIT Hospitalist; ATTEND Hospitalist
PROC: 0DB38ZX Excision of Lower Esophagus, Via Natural or Artificial Opening Endoscopic, Diagnostic (ICD-10-PCS; 2023-06-09)
PROC: 0DB78ZX Excision of Stomach, Pylorus, Via Natural or Artificial Opening Endoscopic, Diagnostic (ICD-10-PCS; 2023-06-09)
PROC: 0FT44ZZ Resection of Gallbladder, Percutaneous Endoscopic Approach (ICD-10-PCS; principal; 2023-06-10 14:05)
DX: A41.9 Sepsis, unspecified organism (principal); I50.33 Acute on chronic diastolic (congestive) heart failure; J96.01 Acute respiratory failure with hypoxia; I31.39 Other pericardial effusion (noninflammatory); E44.0 Moderate protein-calorie malnutrition; K81.0 Acute cholecystitis; I42.6 Alcoholic cardiomyopathy; E87.20 Acidosis, unspecified; E87.1 Hypo-osmolality and hyponatremia; Z68.1 Body mass index [BMI] 19.9 or less, adult; R18.8 Other ascites; E88.09 Other disorders of plasma-protein metabolism, not elsewhere classified; D63.8 Anemia in other chronic diseases classified elsewhere; I11.0 Hypertensive heart disease with heart failure; J44.9 Chronic obstructive pulmonary disease, unspecified; J43.9 Emphysema, unspecified; F10.20 Alcohol dependence, uncomplicated; Z11.52 Encounter for screening for COVID-19; E86.0 Dehydration; E78.5 Hyperlipidemia, unspecified; K29.70 Gastritis, unspecified, without bleeding; K20.90 Esophagitis, unspecified without bleeding; K29.80 Duodenitis without bleeding; E87.6 Hypokalemia; I25.2 Old myocardial infarction; E83.42 Hypomagnesemia; E86.1 Hypovolemia; R26.9 Unspecified abnormalities of gait and mobility; Z79.82 Long term (current) use of aspirin; Z79.51 Long term (current) use of inhaled steroids; Z79.899 Other long term (current) drug therapy; Z87.891 Personal history of nicotine dependence; Z71.3 Dietary counseling and surveillance
CPT/HCPCS: 36415; 43239; 71045; 71046; 71275; 74177; 76604; 80048; 80053; 80306; 81001; 81003; 82550; 83605; 83735; 83880; 84145; 84484; 85025; 85379; 85610; 85730; 86140; 87040; 87636; 88304; 88305; 93005; 93306; 93970; 94640; 94760; 96361; 96365; 96375; 99285

== ENCOUNTER 2023-06-20 17:11 | Inpatient (IN) | payer MEDICARE, OTHER ==
[2023-06-20] MEDS ORDERED: SODIUM CHLORIDE 0.9% 1,000 ML IV ONE (17:34)
[2023-06-20] MEDS ORDERED: SODIUM CHLORIDE 0.9% 500 ML 500 ML IV STA (17:37)
--- NOTE | 2023-06-20 17:46 | ED ---
Altered Mental Status HPI - General Chief Complaint: Altered Mental Status Stated Complaint: poss Sepsis Time Seen by Provider: 06/20/23 17:19 Source: EMS Mode of arrival: EMS Limitations: altered mental status - History of Present Illness Initial Comments: 63-year-old male with a medical history significant for recent admission on 06/06/23. At this time, found to have cholecystitis underwent cholecystectomy. Started on IV antibiotics. Additionally workup at this time and did show bilateral pleural effusions and echo also showed small pericardial effusion. He was treated with IV Lasix and discharged to [facility] on 06/15/25 with prescriptions for Augmentin and Lasix. Patient presenting via [facility] today due to concerns of worsening condition and sepsis with altered mental status. Currently, patient reports has been experiencing chills over the past few days however otherwise denies chest pain, shortness of breath, abdominal pain, nausea, vomiting, diarrhea, urinary symptoms. At this time, patient is alert and oriented 1 therefore history he not be entirely accurate and no staff or family at bedside to provide additional history. No other complaints or modifying factors at this time. - Related Data Home Medications Medication Instructions Recorded Confirmed Amoxic-Pot Clav 875-125Mg 1 tab PO BID@0900,2100 06/06/23 06/20/23 [Augmentin 875-125] Atorvastatin [Lipitor] 40 mg PO HS@209906/06/23 06/20/23 Budesonide [Pulmicort] 0.5 mg INHALATION RT-BID@0900,2100 06/06/23 06/20/23 Folic Acid 1 mg PO DAILY@0900 06/06/23 06/20/23 Lactose-Reduced Food [Ensure Plus] 1 can PO TID@0900,1300,2100 06/06/23 06/20/23 Lactulose 20 gm PO BID@0900,2100 06/06/23 06/20/23 Midodrine [ProAmatine] 5 mg PO TID@0900,1300,1800 06/06/23 06/20/23 Mirtazapine 7.5 mg PO DAILY@1700 06/06/23 06/20/23 Multivitamins, Thera [Multivitamin 1 tab PO DAILY@0900 06/06/23 06/20/23 (formulary)] Omeprazole [PriLOSEC] 20 mg PO DAILY@0800 06/06/23 06/20/23 Thiamine [Vitamin B-1] 100 mg PO DAILY@0900 06/06/23 06/20/23 Divalproex [Depakote] 250 mg PO DAILY@0906/20/23 06/20/23 Enoxaparin [Lovenox] 40 mg SQ DAILY@0900 06/20/23 06/20/23 Fluconazole [Diflucan] 100 mg PO DAILY@0906/20/23 06/20/23 Furosemide [Lasix] 20 mg PO DAILY@0906/20/23 06/20/23 HYDROcodone/APAP 5-325MG [[place] 1 tab PO Q6H PRN 06/20/23 06/20/23 5-325] Ipratropium-Albuterol Nebulize 3 ml INHALATION RT-QID@,,17,06/20/23 06/20/23 [Duoneb 0.5 mg-3 mg/3 ml Soln] Potassium Chloride ER [K-Dur 20] 20 meq PO DAILY@0906/20/23 06/20/23 Tamsulosin [Flomax] 0.4 mg PO DAILY@0906/20/23 06/20/23 Previous Rx's Medication Instructions Recorded Acetaminophen Tab [Tylenol] 650 mg PO Q6HR PRN tab 06/16/23 Allergies Allergy/AdvReac Type Severity Reaction Status Date / Time No Known Allergies Allergy Verified 06/20/23 18:27 Review of Systems ROS Statement: Those systems with pertinent positive or pertinent negative responses have been documented in the HPI. ROS Other: All systems not noted in ROS Statement are negative. Past Medical History Past Medical History: Hyperlipidemia, Memory Impairment, Myocardial Infarction (MD) Last Myocardial Infarction Date:: . History of Any Multi-Drug Resistant Organisms: Unobtainable Smoking Status: Former smoker Past Alcohol Use History: Heavy General Exam Limitations: altered mental status General appearance: alert (Answers questions somewhat appropriately.), cachectic Neck exam: Present: normal inspection Respiratory exam: Present: normal lung sounds bilaterally Cardiovascular Exam: Present: tachycardia GI/Abdominal exam: Present: soft (Tenderness to palpation. No rebound guarding or rigidity. Incisions appear clean dry and intact.) Extremities exam: Present: other (Ulceration on the left lower anterior lateral leg without any drainage. No surrounding warmth erythema.) Neurological exam: Present: alert Course Vital Signs 06/20/23 06/20/23 06/20/23 17:15 18:31 19:00 Temperature 97.4 F L Pulse Rate 113 H 112 H 110 H Respiratory 18 22 20 Rate Blood Pressure 110/72 122/87 112/77 O2 Sat by Pulse 94 L 92 L 92 L Oximetry 06/20/23 06/20/23 20:00 21:00 Temperature Pulse Rate 115 H 117 H Respiratory 18 18 Rate Blood Pressure 124/86 107/71 O2 Sat by Pulse 98 98 Oximetry Medical Decision Making - Medical Decision Making Was pt. sent in by a medical professional or institution (, PA, SU[employer]ER, urgent care, hospital, or [facility]...) When possible be specific @ -[facility] Did you speak to anyone other than the patient for history (EMS, parent, family, police, friend...)? What history was obtained from this source @ -No Did you review nursing and triage notes (agree or disagree)? Why? @ -I reviewed and agree with nursing and triage notes Were old charts reviewed (outside hosp., previous admission, EMS record, old EKG, old radiological studies, urgent care reports/EKG's, [facility] records)? Report findings @ -Prior records reviewed. For further details please see HPI. Differential Diagnosis (chest pain, altered mental status, abdominal pain women, abdominal pain men, vaginal bleeding, weakness, fever, dyspnea, syncope, headache, dizziness, GI bleed, back pain, seizure, CVA, palpatations, mental health, musculoskeletal)? @ -Differential Altered Mental Status: Hypoglycemia, DKA, hypercapnia, ETOH, overdose, CO poisoning, trauma, myxedema coma, HTN encephalopathy, infection, encephalitis, psychosis, intercranial hemorrhage, hepatic encephalopathy, meningitis, CVA, this is not meant to be an all-inclusive list EKG interpreted by me (3pts min.). @ -As above X-rays interpreted by me (1pt min.). @ -X-ray of the chest shows improving opacity of the lung. CT interpreted by me (1pt min.). @ -CT of the brain without contrast shows no evidence of acute process. U/S interpreted by me (1pt. min.). @ -None done What testing was considered but not performed or refused? (CT, X-rays, U/S, labs)? Why? @ -None What meds were considered but not given or refused? Why? @ -None Did you discuss the management of the patient with other professionals (pr ofessionals i.e. , PA, [employer]ER, lab, RT, psych nurse, group social worker, retail gift card merchandising, teacher, county health officer, trimming caser)? Give summary @ -Case discussed with Dr. Gutierrez, who accepts admission. Was smoking cessation discussed for >3mins.? @ -No Was critical care preformed (if so, how long)? @ -No Were there social determinants of health that impacted care today? How? (Homelessness, low income, unemployed, alcoholism, drug addiction, transportation, low edu. Level, literacy, decrease access to med. care, senior care, rehab)? @ -No Was there de-escalation of care discussed even if they declined (Discuss DNR or withdrawal of care, Hospice)? DNR status @ -No What co-morbidities impacted this encounter? (DM, HTN, Smoking, COPD, CAD, Cancer, CVA, ARF, Chemo, Hep., AIDS, mental health diagnosis, sleep apnea, morbid obesity)? @ -None Was patient admitted / discharged? Hospital course, mention meds given and route, prescriptions, significant lab abnormalities, going to OR and other pertinent info. @ -Admission 63-year-old male with recent treatment for cholecystectomy, bilateral pleural effusion, pericardial effusion, presenting from [facility] due to concerns of sepsis and altered mental status. Laboratory studies reviewed which shows no elevation in white blood cell count. Troponin is elevated at 0.054 however the remainder of the laboratory studies actually do appear improved from prior. At this time, patient is only alert to person. Upon review shows patient is normally alert to person place and time. Patient will be admitted due to altered mental status with consults to cardiology and neurology. Undiagnosed new problem with uncertain prognosis? @ -No Drug Therapy requiring intensive monitoring for toxicity (Heparin, Nitro, Insulin, Cardizem)? @ -No Were any procedures done? @ -No Diagnosis/symptom? @ -Acute mental status Acute, or Chronic, or Acute on Chronic? @ -Acute Uncomplicated (without systemic symptoms) or Complicated (systemic symptoms)? @ -Uncomplicated Side effects of treatment? @ -No Exacerbation, Progression, or Severe Exacerbation? @ -No Poses a threat to life or bodily function? How? (Chest pain, USA, MD, pneumonia, PE, COPD, DKA, ARF, appy, cholecystitis, CVA, Diverticulitis, Homicidal, Shanae cidal, threat to staff... and all critical care pts) @ -No - Lab Data Result diagrams: 06/20/23 17:55 06/20/23 17:55 Lab Results 06/20/23 06/20/23 06/20/23 Range/Units 17:55 17:55 17:55 WBC 10.0 (3.8-10.6) k/uL RBC 3.39 L (4.30-5.90) m/uL Hgb 10.0 L (13.0-17.5) gm/dL Hct 30.5 L (39.0-53.0) % MCV 90.0 (80.0-100.0) fL MCH 29.5 (25.0-35.0) pg MCHC 32.8 (31.0-37.0) g/dL RDW 16.9 H (11.5-15.5) % Plt Count 365 (150-450) k/uL MPV 7.3 Neutrophils % 77 % Lymphocytes % 12 % Monocytes % 4 % Eosinophils % 5 % Basophils % 0 % Neutrophils # 7.8 H (1.3-7.7) k/uL Lymphocytes # 1.2 (1.0-4.8) k/uL Monocytes # 0.4 (0-1.0) k/uL Eosinophils # 0.5 (0-0.7) k/uL Basophils # 0.0 (0-0.2) k/uL Hypochromasia Slight Anisocytosis Slight PT (10.0-12.5) sec INR (<1.2) APTT (22.0-30.0) sec Sodium 135 L (137-145) mmol/L Potassium 3.8 (3.5-5.1) mmol/L Chloride 104 (98-107) mmol/L Carbon Dioxide 20 L (22-30) mmol/L Anion Gap 11 mmol/L BUN 11 (9-20) mg/dL Creatinine 0.31 L (0.66-1.25) mg/dL Est GFR (CKD-EPI)AfAm >90 (>60 ml/min/1.73 sqM) Est GFR (CKD-EPI)NonAf >90 (>60 ml/min/1.73 sqM) Glucose 110 H (74-99) mg/dL Plasma Lactic Acid Shane (0.7-2.0) mmol/L Calcium 8.2 L (8.4-10.2) mg/dL Phosphorus 3.8 (2.5-4.5) mg/dL Magnesium 1.8 (1.6-2.3) mg/dL Total Bilirubin 0.4 (0.2-1.3) mg/dL AST 97 H (17-59) U/L ALT 42 (4-49) U/L Alkaline Phosphatase 190 H (38-126) U/L Ammonia (<30) umol/L Troponin I 0.054 H* (0.000-0.034) ng/mL Total Protein 5.7 L (6.3-8.2) g/dL Albumin 2.6 L (3.5-5.0) g/dL Amylase 40 (30-110) U/L Lipase 40 (23-300) U/L 06/20/23 06/20/23 Range/Units 18:33 19:33 WBC (3.8-10.6) k/uL RBC (4.30-5.90) m/uL Hgb (13.0-17.5) gm/dL Hct (39.0-53.0) % MCV (80.0-100.0) fL MCH (25.0-35.0) pg MCHC (31.0-37.0) g/dL RDW (11.5-15.5) % Plt Count (150-450) k/uL MPV Neutrophils % % Lymphocytes % % Monocytes % % Eosinophils % % Basophils % % Neutrophils # (1.3-7.7) k/uL Lymphocytes # (1.0-4.8) k/uL Monocytes # (0-1.0) k/uL Eosinophils # (0-0.7) k/uL Basophils # (0-0.2) k/uL Hypochromasia Anisocytosis PT 13.4 H (10.0-12.5) sec INR 1.3 H (<1.2) APTT 30.7 H (22.0-30.0) sec Sodium (137-145) mmol/L Potassium (3.5-5.1) mmol/L Chloride (98-107) mmol/L Carbon Dioxide (22-30) mmol/L Anion Gap mmol/L BUN (9-20) mg/dL Creatinine (0.66-1.25) mg/dL Est GFR (CKD-EPI)AfAm (>60 ml/min/1.73 sqM) Est GFR (CKD-EPI)NonAf (>60 ml/min/1.73 sqM) Glucose (74-99) mg/dL Plasma Lactic Acid Shane 1.8 (0.7-2.0) mmol/L Calcium (8.4-10.2) mg/dL Phosphorus (2.5-4.5) mg/dL Magnesium (1.6-2.3) mg/dL Total Bilirubin (0.2-1.3) mg/dL AST (17-59) U/L ALT (4-49) U/L Alkaline Phosphatase (38-126) U/L Ammonia <9 (<30) umol/L Troponin I (0.000-0.034) ng/mL Total Protein (6.3-8.2) g/dL Albumin (3.5-5.0) g/dL Amylase (30-110) U/L Lipase (23-300) U/L - EKG Data EKG Comments: Shows a sinus tachycardia at 110 beats per minutes however difficult to interpre t due to significant artifact. IA 124, QRS 72, QT/QTc 328/393. Disposition Clinical Impression: Altered mental status Disposition: ADMITTED IP TO THIS [facility] Referrals: Sandra Graves MD [Primary Care Provider] - 1-2 days Time of Disposition: 21:00
[2023-06-20 18:11] LABS: Anisocytosis Slight; Basophils % (A) 0 %; Eosinophils # (A) 0.5 k/uL (0-0.7); Eosinophils % (A) 5 %; HCT 30.5 % (39.0-53.0); Hypochromasia Slight; Lymphocytes # (A) 1.2 k/uL (1.0-4.8); Lymphocytes % (A) 12 %; MCH 29.5 pg (25.0-35.0); MCHC 32.8 g/dL (31.0-37.0); Mean Platelet Volume 7.3; Monocytes # (A) 0.4 k/uL (0-1.0); Monocytes % (A) 4 %; Neutrophils # (A) 7.8 k/uL (1.3-7.7); Neutrophils % (A) 77 %; Platelet Count 365 k/uL (150-450); RBC 3.39 m/uL (4.30-5.90); RDW 16.9 % (11.5-15.5)
[2023-06-20 18:22] LABS: ALT 42 U/L (4-49); AST 97 U/L (17-59); African American GFR (CKD) >90 (>60 ml/min/1.73 sqM); Albumin 2.6 g/dL (3.5-5.0); Alkaline Phosphatase 190 U/L (38-126); Amylase 40 U/L (30-110); Anion Gap 11 mmol/L; Blood Urea Nitrogen 11 mg/dL (9-20); Calcium 8.2 mg/dL (8.4-10.2); Carbon Dioxide 20 mmol/L (22-30); Chloride 104 mmol/L (98-107); Glucose 110 mg/dL (74-99); Lipase 40 U/L (23-300); Magnesium 1.8 mg/dL (1.6-2.3); Non-African American GFR(CKD) >90 (>60 ml/min/1.73 sqM); Phosphorus 3.8 mg/dL (2.5-4.5); Potassium 3.8 mmol/L (3.5-5.1); Sodium 135 mmol/L (137-145); Total Bilirubin 0.4 mg/dL (0.2-1.3); Total Protein 5.7 g/dL (6.3-8.2)
--- NOTE | 2023-06-20 18:24 | XR ---
EXAMINATION TYPE: XR chest 2V DATE OF EXAM: 06/20/2023 COMPARISON: 06/16/2023 INDICATION: Altered mental status possible sepsis TECHNIQUE: Frontal and lateral views of the chest are obtained. FINDINGS: The heart size is normal. The pulmonary vasculature is normal. Some mild infiltrates in the right lower lobe. This appears to be improved from comparison. Correlate for pneumonia.. IMPRESSION: 1. Improving right lower lobe infiltrate may be present. Correlate for pneumonia.
--- NOTE | 2023-06-20 18:31 | CT ---
EXAMINATION TYPE: CT brain wo con DATE OF EXAM: 06/20/2023 COMPARISON: None INDICATION: AMS DLP: 1197.4 mGycm, Automated exposure control for dose reduction was used. CONTRAST: None CT of the brain is performed utilizing 3 mm thick sections through the posterior fossa and 3 mm thick sections through the remaining calvarium. Study is performed within 24 hours of arrival to the hosp ital. No abnormal hyperdensity is present to suggest an acute intracranial hemorrhage. No mass lesion is evident. No acute infarcts are evident. Periventricular white matter hypodensity is present, likely on the bas is of chronic white matter ischemic changes. Ventricles and sulci are mildly prominent for the patient age. Paranasal sinuses and mastoid air cells within the [id number] are clear. IMPRESSION: 1. Atrophy with chronic appearing periventricular white matter ischemic changes. 2. No acute intracranial process. Follow-up MRI can be performed as clinically indicated.
[2023-06-20 19:05] LABS: INR 1.3 (<1.2)
[2023-06-20 19:06] LABS: Partial Thromboplastin Time 30.7 sec (22.0-30.0); Prothrombin Time 13.4 sec (10.0-12.5)
[2023-06-20 20:00] LABS: Lactic Acid, Venous 1.8 mmol/L (0.7-2.0)
[2023-06-20] MEDS ORDERED: HYDROmorphone 1 MG/ML 1 ML SYRINGE IVP PRN (21:33)
[2023-06-20] MEDS ORDERED: HYDROmorphone 0.5 MG/0.5 ML SYRINGE IVP PRN (21:33)
[2023-06-20] MEDS ORDERED: NALOXONE 0.4 MG/ML 1 ML VIAL IV PRN (21:33)
[2023-06-20 21:42] LABS: Appearance,Urine Clear (Clear); Bilirubin,Urine Negative (Negative); Blood,Urine Negative (Negative); Color,Urine Colorless; Glucose,Urine (UA) Negative (Negative); Ketones,Urine Negative (Negative); Leukocyte Esterase,Urine Negative (Negative); Nitrite,Urine Negative (Negative); PH, Urine 6.5 (5.0-8.0); Protein,Urine Negative (Negative); Urobilinogen,Urine <2.0 mg/dL (<2.0)
[2023-06-20] MEDS: SODIUM CHLORIDE 0.9% 1,000 ML IV SCH (21:46)
--- NOTE | 2023-06-21 01:09 | P.EN ---
patient is Dr Lu . and was seen and discharged 3 days ago by [facility] service. notified ER to switch admit to [facility]. or who ever is covering Dr Graves.
[2023-06-21] MEDS: IPRATROPIUM-ALBUTEROL 3 ML NEB INHALATION SCH ×2 (11:50→21:37)
[2023-06-21] MEDS: MIDODRINE 5 MG TAB PO SCH ×2 (12:27→17:07)
[2023-06-21] MEDS ORDERED: NON FORMULARY DRUG (Lactose-Reduced Food [Ensure Plus] 237 ML Ml) PO SCH (13:00)
--- NOTE | 2023-06-21 13:11 | P.HPIM ---
History of Present Illness H&P Date: 06/21/23 History of present illness; 63-year-old male patient with known history of dilated cardiomyopathy,CHF, history of alcohol abuse, COPD, hyperlipidemia and recent admission for sepsis and underwent cholecystectomy who is a resident of group home facility brought to the ER for altered mental status. Patient was recently admitted to the hospital for sepsis, underwent cholecystectomy, was evaluated by cardiology and pulmonology during that admission as well. Patient was discharged on oral Lasix and Augmentin. At the facility there was concern that the patient was becoming more confused. Patient was having chills at the facility. No complain of chest pain or shortness of breath. No complain of cough. Denies any swelling of feet. No complain of nausea, vomiting abdominal pain. Because of this altered mental status, patient was brought to the ER Initial lab work done in the ER showed WBC 10, hemoglobin 10, platelet count 365, sodium 100, potassium 3.8, BUN 11, creatinine 0.31, glucose 110 troponin 0.054 UA negative for an infection EKG done in the ER heart rate of 110, no ST segment elevation seen, no T-wave inversion CT brain showed atrophy with chronic appearing periventricular white matter ischemic changes, no acute intracranial process Chest x-ray done in the ER showed improvement of right lower lobe infiltrate Patient admitted to medicine service REVIEW OF SYSTEMS: CONSTITUTIONAL: No fever, no malaise, no fatigue. HEENT: No recent visual problems or hearing problems. Denied any sore throat. CARDIOVASCULAR: No chest pain, orthopnea, PND, no palpitations, no syncope. PULMONARY: No shortness of breath, no cough, no hemoptysis. GASTROINTESTINAL: No diarrhea, no nausea, no vomiting, no abdominal pain. NEUROLOGICAL: No headaches, no weakness, no numbness. HEMATOLOGICAL: Denies any bleeding or petechiae. GENITOURINARY: Denies any burning micturition, frequency, or urgency. MUSCULOSKELETAL/RHEUMATOLOGICAL: Denies any joint pain, swelling, or any muscle pain. ENDOCRINE: Denies any polyuria or polydipsia. The rest of the 14-point review of systems is negative. PHYSICAL EXAMINATION: GENERAL: The patient is alert self, not in any acute distress. Well developed, well nourished. HEENT: Pupils are round and equally reacting to light. EOMI. No scleral icterus. No conjunctival pallor. Normocephalic, atraumatic. No pharyngeal erythema. No thyromegaly. CARDIOVASCULAR: S1 and S2 present. No murmurs, rubs, or gallops. PULMONARY: Chest is clear to auscultation, no wheezing or crackles. ABDOMEN: Soft, nontender, nondistended, normoactive bowel sounds. No palpable organomegaly. MUSCULOSKELETAL: No joint swelling or deformity. EXTREMITIES: No cyanosis, clubbing, or pedal edema. NEUROLOGICAL: Gross neurological examination did not reveal any focal deficits. Left wrist drop seen muscles strength 5 x 5 all other extremities SKIN: No rashes. Assessment and plan Acute metabolic encephalopathy Chronically elevated troponins Status post cholecystectomy Shortness of breath with bilateral pleural effusions History of dilated cardiomyopathy secondary to alcohol abuse, reserved EF of 55- 60% chronic obstructive pulmonary disease, acute exacerbation Memory impairment hyperlipidemia history History of alcohol abuse Moderate protein calorie malnutrition with a BMI of 14.1 Anemia of chronic disease History of myocardial infarction Monitor vital signs Monitor CBC Monitor CMP Continue telemetry monitoring Trend troponins, patient had chronically elevated troponins Delirium precautions Judicious use of pain medications Consult neurology Consult cardiology Labs and medication were reviewed.. Continue same treatment. Continue with symptomatic treatment. Resume home medication. Monitor labs and vitals. DVT and GI prophylaxis. Further recommendations as per clinical course of the patient Dictation was produced using [employer] dictation software. please excuse any grammatical, word or spelling errors. Past Medical History Past Medical History: Heart Failure, COPD, GERD/Reflux, Hyperlipidemia, Liver Disease, Memory Impairment, Myocardial Infarction ([place]), Respiratory Disorder Last Myocardial Infarction Date:: . History of Any Multi-Drug Resistant Organisms: Unobtainable Past Surgical History: Cholecystectomy Past Anesthesia/Blood Transfusion Reactions: Unable to Obtain Past Psychological History: Unable to Obtain Smoking Status: Former smoker Past Alcohol Use History: Heavy - Past Family History Mother Family Medical History: Unable to Obtain Father Family Medical History: Unable to Obtain Medications and Allergies Home Medications Medication Instructions Recorded Confirmed Type Amoxic-Pot Clav 875-125Mg 1 tab PO BID@0900,209906/06/23 06/20/23 History [Augmentin 875-125] Atorvastatin [Lipitor] 40 mg PO HS@209906/06/23 06/20/23 History Budesonide [Pulmicort] 0.5 mg INHALATION RT-BID@0900,2100 06/06/23 06/20/23 History Folic Acid 1 mg PO DAILY@0900 06/06/23 06/20/23 History Lactose-Reduced Food [Ensure Plus] 1 can PO TID@0900,1300,2100 06/06/23 06/20/23 History Lactulose 20 gm PO BID@0900,2100 06/06/23 06/20/23 History Midodrine [ProAmatine] 5 mg PO TID@0900,1300,1800 06/06/23 06/20/23 History Mirtazapine 7.5 mg PO DAILY@1700 06/06/23 06/20/23 History Multivitamins, Thera [Multivitamin 1 tab PO DAILY@0900 06/06/23 06/20/23 History (formulary)] Omeprazole [PriLOSEC] 20 mg PO DAILY@0800 06/06/23 06/20/23 History Thiamine [Vitamin B-1] 100 mg PO DAILY@0900 06/06/23 06/20/23 History Acetaminophen Tab [Tylenol] 650 mg PO Q6HR PRN tab 06/16/23 06/20/23 Rx Divalproex [Depakote] 250 mg PO DAILY@0900 06/20/23 06/20/23 History Enoxaparin [Lovenox] 40 mg SQ DAILY@0906/20/23 06/20/23 History Fluconazole [Diflucan] 100 mg PO DAILY@0900 06/20/23 06/20/23 History Furosemide [Lasix] 20 mg PO DAILY@0900 06/20/23 06/20/23 History HYDROcodone/APAP 5-325MG [[place] 1 tab PO Q6H PRN 06/20/23 06/20/23 History 5-325] Ipratropium-Albuterol Nebulize 3 ml INHALATION RT-QID@09,13,17,21 06/20/23 06/20/23 History [Duoneb 0.5 mg-3 mg/3 ml Soln] Potassium Chloride ER [K-Dur 20] 20 meq PO DAILY@0900 06/20/23 06/20/23 History Tamsulosin [Flomax] 0.4 mg PO DAILY@0900 06/20/23 06/20/23 History Allergies Allergy/AdvReac Type Severity Reaction Status Date / Time No Known Allergies Allergy Verified 06/20/23 18:27 Physical Exam Vitals: Vital Signs Temp Pulse Pulse Resp BP BP Pulse Ox 06/21/23 03:11 98.4 F 117 H 20 108/71 97 06/20/23 22:20 99.7 F H 123 H 22 129/73 96 06/20/23 22:00 118 H 20 110/74 100 06/20/23 21:00 117 H 18 107/71 98 06/20/23 20:00 115 H 18 124/86 98 06/20/23 19:00 110 H 20 112/77 92 L 06/20/23 18:31 112 H 22 122/87 92 L 06/20/23 17:15 97.4 F L 113 H 18 110/72 94 L Intake and Output 06/20/23 06/21/23 06/21/23 22:59 06:59 14:59 Other: Voiding Method External Catheter Weight 56.699 kg Results CBC & Chem 7: 06/20/23 17:55 06/20/23 17:55 Labs: Abnormal Lab Results - Last 24 Hours (Table) 06/20/23 06/20/23 06/20/23 Range/Units 17:55 17:55 17:55 RBC 3.39 L (4.30-5.90) m/uL Hgb 10.0 L (13.0-17.5) gm/dL Hct 30.5 L (39.0-53.0) % RDW 16.9 H (11.5-15.5) % Neutrophils # 7.8 H (1.3-7.7) k/uL PT (10.0-12.5) sec INR (<1.2) APTT (22.0-30.0) sec Sodium 135 L (137-145) mmol/L Carbon Dioxide 20 L (22-30) mmol/L Creatinine 0.31 L (0.66-1.25) mg/dL Glucose 110 H (74-99) mg/dL Calcium 8.2 L (8.4-10.2) mg/dL AST 97 H (17-59) U/L Alkaline Phosphatase 190 H (38-126) U/L Troponin I 0.054 H* (0.000-0.034) ng/mL Total Protein 5.7 L (6.3-8.2) g/dL Albumin 2.6 L (3.5-5.0) g/dL 06/20/23 06/20/23 Range/Units 18:33 21:37 RBC (4.30-5.90) m/uL Hgb (13.0-17.5) gm/dL Hct (39.0-53.0) % RDW (11.5-15.5) % Neutrophils # (1.3-7.7) k/uL PT 13.4 H (10.0-12.5) sec INR 1.3 H (<1.2) APTT 30.7 H (22.0-30.0) sec Sodium (137-145) mmol/L Carbon Dioxide (22-30) mmol/L Creatinine (0.66-1.25) mg/dL Glucose (74-99) mg/dL Calcium (8.4-10.2) mg/dL AST (17-59) U/L Alkaline Phosphatase (38-126) U/L Troponin I 0.047 H* (0.000-0.034) ng/mL Total Protein (6.3-8.2) g/dL Albumin (3.5-5.0) g/dL Thrombosis Risk Factor Assmnt - Choose All That Apply Any of the Below Risk Factors Present?: Yes Each Factor Represents 1 point: Medical pt on bed rest, Serious lung disease incl. pneumonia (< 1month) Each Risk Factor Represents 2 Points: Age 61-74 years Other congenital or acquired thrombophilia - If yes, enter type in comment: No Thrombosis Risk Factor Assessment Total Risk Factor Score: 4 Thrombosis Risk Factor Assessment Level: Moderate Risk
--- NOTE | 2023-06-21 14:30 | P.CNNES ---
History of Present Illness Consult date: 06/21/23 Requesting physician: Demario Rojas Reason for Consult: Altered mental status History of Present Illness: Patient is a 63-year-old right-handed male with history of tobacco use, alcoholism, came to the hospital by ambulance yesterday at 5:11 PM from [facility] for low oxygen saturation, and tachycardia. Patient had low oxygen saturation, was given breathing treatment, but his heart rate was very high, therefore he was transferred to the hospital. EMS flow sheet not available in the chart. Patient's vitals on arrival blood pressure 110/72, pulse rate 113, temperature 97.4. Blood test shows normal WBC, hemoglobin 10.0, platelets are normal. INR 1.3, PTT 30.7. Sodium 135 potassium, renal functions are normal. AST is 97, ALT 42. Ammonia is normal, troponin is mildly elevated 0.054. UA is negative. CT head revealed atrophy with chronic appearing periventricular white matter ischemic changes. No acute intracranial process. I personally reviewed CT head, agree with the findings. Evidence of small encephalomalacia, left frontal region. Chest x-ray revealed improving right lower lobe infiltrate may be present. Correlate for pneumonia. EKG shows sinus tachycardia. Home medications include thiamine, Lipitor 40 mg, midodrine 5 mg 3 times a day, lactulose, Augmentin, mirtazapine 7.5 mg, folic acid, Depakote 250 mg daily, Diflucan, Lasix 20 mg, Lovenox 40 mg. The patient's brother and [id number] were present, who provided with detailed history. They mentioned that patient used to live in [facility]. He has never , has no children. Patient used to live in a rental unit. Patient does not have much contact with his family members, and although patient's brother talks to him on the phone sporadically, but has not seen him for about 6 months. Apparently in March 2023, one day the neighbors noticed that his truck was not moved for 3 days. They sent police for a welfare check on him, and when they entered, he was found on the floor, with blood pressure 60/48. He was ad mitted to [facility] in [place] where he stayed for about one week. He was sent to [facility], where he has been living since then. Apparently he has been falling a lot. Patient was brought to the hospital after a fall on 06/06/2023 when he was oxygen was low. He was discharged on 06/18/2023, but then returned back. Patient has history of alcoholism for 15+ years. He also smoked since age 13. No drug use. He does take a lot of natural supplements. Per [id number], patient's living condition was "less than desirable". Prior to his admission to [facility], he was living on his own, was paying bills. Patient on asking the reason why he came to the hospital, states "way to the new job site and the boss was surprised to see him and he was not welcome". Patient is very confused. Patient could not tell what address he lives in. Review of Systems Constitutional: Reports chills (In am), Reports weight loss, Denies fever Eyes: right loss of vision (Chronic), denies diplopia Ears: bilateral: decreased hearing, deny: ear discharge Ears, nose, mouth and throat: Denies headache, Denies sore throat Cardiovascular: Denies chest pain, Denies shortness of breath Respiratory: Reports excessive sputum, Denies cough Gastrointestinal: Reports diarrhea, Denies abdominal pain, Denies nausea, Denies vomiting Genitourinary: Reports dysuria, Reports incontinence, Denies hematuria Musculoskeletal: Reports low back pain, Denies myalgias, Denies neck pain Integumentary: Reports brittle nails, Reports unusual bruising, Reports wounds, Denies pruritus, Denies rash Neurological: Reports as per HPI Psychiatric: Reports depression, Denies anxiety Endocrine: Reports weight change, Denies fatigue Hematologic/Lymphatic: Reports easy bleeding, Reports easy bruising Past Medical History Past Medical History: Heart Failure, COPD, GERD/Reflux, Hyperlipidemia, Liver Disease, Memory Impairment, Myocardial Infarction ([place]), Respiratory Disorder Last Myocardial Infarction Date:: . History of Any Multi-Drug Resistant Organisms: Unobtainable Past Surgical History: Cholecystectomy Past Anesthesia/Blood Transfusion Reactions: Unable to Obtain Past Psychological History: Unable to Obtain Smoking Status: Former smoker Past Alcohol Use History: Heavy - Past Family History Mother Family Medical History: Unable to Obtain Father Family Medical History: Unable to Obtain Medications and Allergies Home Medications Medication Instructions Recorded Confirmed Type Amoxic-Pot Clav 875-125Mg 1 tab PO BID@0900,2100 06/06/23 10/28/23 History [Augmentin 875-125] Atorvastatin [Lipitor] 40 mg PO HS@209906/06/23 06/20/23 History Budesonide [Pulmicort] 0.5 mg INHALATION RT-BID@0900,209906/06/23 06/20/23 History Folic Acid 1 mg PO DAILY@0900 06/06/23 06/20/23 History Lactose-Reduced Food [Ensure Plus] 1 can PO TID@0900,1300,209906/06/23 06/20/23 History Lactulose 20 gm PO BID@0900,209906/06/23 06/20/23 History Midodrine [ProAmatine] 5 mg PO TID@0900,1300,1800 06/06/23 06/20/23 History Mirtazapine 7.5 mg PO DAILY@1700 06/06/23 06/20/23 History Multivitamins, Thera [Multivitamin 1 tab PO DAILY@0906/06/23 06/20/23 History (formulary)] Omeprazole [PriLOSEC] 20 mg PO DAILY@0800 06/06/23 06/20/23 History Thiamine [Vitamin B-1] 100 mg PO DAILY@0900 06/06/23 06/20/23 History Acetaminophen Tab [Tylenol] 650 mg PO Q6HR PRN tab 06/16/23 06/20/23 Rx Divalproex [Depakote] 250 mg PO DAILY@0900 06/20/23 06/20/23 History Enoxaparin [Lovenox] 40 mg SQ DAILY@0906/20/23 06/20/23 History Fluconazole [Diflucan] 100 mg PO DAILY@0900 06/20/23 06/20/23 History Furosemide [Lasix] 20 mg PO DAILY@0900 06/20/23 06/20/23 History HYDROcodone/APAP 5-325MG [[place] 1 tab PO Q6H PRN 06/20/23 06/20/23 History 5-325] Ipratropium-Albuterol Nebulize 3 ml INHALATION RT-QID@09,13,17,21 06/20/23 06/20/23 History [Duoneb 0.5 mg-3 mg/3 ml Soln] Potassium Chloride ER [K-Dur 20] 20 meq PO DAILY@0900 06/20/23 06/20/23 History Tamsulosin [Flomax] 0.4 mg PO DAILY@0900 06/20/23 06/20/23 History Allergies Allergy/AdvReac Type Severity Reaction Status Date / Time No Known Allergies Allergy Verified 06/20/23 18:27 Physical Examination - Vital Signs Vital Signs: Vital Signs Temp Pulse Pulse Resp BP BP Pulse Ox 06/21/23 03:11 98.4 F 117 H 20 108/71 97 06/20/23 22:20 99.7 F H 123 H 22 129/73 96 06/20/23 22:00 118 H 20 110/74 100 06/20/23 21:00 117 H 18 107/71 98 06/20/23 20:00 115 H 18 124/86 98 06/20/23 19:00 110 H 20 112/77 92 L 06/20/23 18:31 112 H 22 122/87 92 L 06/20/23 17:15 97.4 F L 113 H 18 110/72 94 L Intake and Output 06/20/23 06/21/23 06/21/23 22:59 06:59 14:59 Other: Voiding Method External Catheter Weight 56.699 kg Patient is an elderly male, appears older than his stated age. He is very thin, cachectic looking. Patient is alert awake, slightly slow mentation. He knows his name, date of , but thinks he is 56 years old. He keeps on saying that he lives in [place], but then said is in [place] in [place]. He says that he lives in [facility]. Patient states is the month of January, and year is 76. He thinks Lionel is a president. Speech is mildly dysarthric and language functions are normal. Patient can name and repeat very well. No aphasia. Attention, concentration is slightly impaired and fund of knowledge is significantly limited. 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 His right pupil is very small, somewhat triangular, nonreactive. His left pupil is about 3 mm, slightly reacting to 2 mm. His visual love are full on confrontation in his left eye. Extraocular muscles are intact with no nystagmus. Face is symmetric, tongue protrudes to the midline. Palatal elevation and sensation normal, hearing and shoulder shrug normal, facial sensation normal. On muscle strength testing, there is mild left pronator drift, about 20 and the strength is (right/left) deltoid 4/4, biceps 4+/4-, triceps 4/4, market reporter 2/2, finger extension 3+4-/3-, wrist extension 4-/1-2, hip flexion 3+/3+, ankle dorsiflexion 4 4-/4 4-. Deep tendon reflexes are symmetric 1 in the upper limbs, absent at the ankles and plantars are downgoing. Sensory to touch is decreased in the left upper limb as compared to the right. It is equal in both lower limbs. Cerebellar function showed no ataxia for [id number] testing. Cannot perform [id number] testing on either side. Tone is overall decreased and bulk of muscles also decrease. Patient has slight atrophy of the right interosseous muscle of the right hand. Gait deferred.. On general examination, there is no carotid bruit or murmur, S1-S2 audible. Chest is clear on consultation. Abdomen is soft nontender. No organomegaly, bowel sounds present. Patient has multiple scabs on his gaxiola, knee, some bruises. He has a change of the right middle 3 fingers of right hand. He claims that a [place] bit his fingers, but then said was a rabbit and then said was a turtle that bit his finger. Patient is quite confused. Results - Laboratory Findings CBC and BMP: 06/20/23 17:55 06/20/23 17:55 Abnormal Lab Findings: Abnormal Labs 06/20/23 06/20/23 06/20/23 17:55 17:55 17:55 RBC 3.39 L Hgb 10.0 L Hct 30.5 L RDW 16.9 H Neutrophils # 7.8 H PT INR APTT Sodium 135 L Carbon Dioxide 20 L Creatinine 0.31 L Glucose 110 H Calcium 8.2 L AST 97 H Alkaline Phosphatase 190 H Troponin I 0.054 H* Total Protein 5.7 L Albumin 2.6 L 06/20/23 06/20/23 18:33 21:37 RBC Hgb Hct RDW Neutrophils # PT 13.4 H INR 1.3 H APTT 30.7 H Sodium Carbon Dioxide Creatinine Glucose Calcium AST Alkaline Phosphatase Troponin I 0.047 H* Total Protein Albumin Assessment and Plan Assessment: * Altered mental status, likely due to metabolic encephalopathy. Exact cause is uncertain. * Possible underlying cognitive impairment, possible dementia, probably vascular versus alcohol-related. * Chronic liver disease * Elevated cardiac enzymes * COPD * History of alcoholism * Tobacco use Plan: * Patient will undergo metabolic workup including as below * B12, folate, MMA, B6, TSH, A1c, lead (for wrist drop), HIV, ESR, B1, hemoglobin A1c. * Carotid Doppler * EEG * 2-D echo from 06/13/2023 revealed technically difficult study with A. fib and RVR. LVEF 55-60%. Mitral and aortic valves not well visualized. No evidence of significant MS or . Left atrium is not well visualized. Patient was seen by cardiology on the last admission on 06/15/2023 and they ruled out atrial fibrillation in the echo report or the telemetry monitoring. Patient was not in any acute CHF. Cardiology on board as well. * Continue aspirin. * Neurology will follow. Thank you for the consult.
--- NOTE | 2023-06-21 14:43 | P.CRDCN ---
History of Present Illness History of present illness: HISTORY OF PRESENTING ILLNESS Patient is pleasant 63-year-old male with history of alcohol abuse, COPD, hyperlipidemia, previous sepsis, cardiomyopathy, CHF. Patient states "my heart is fine "and appears to be poor historian. Much of history is supplied by chart. He presented from half-way secondary to altered mental status. He had recent hospitalization 06/15 and had prior cholecystectomy. He follows in the office with Dr. Mcelroy. There was previously some concern of atrial fi brillation however none on telemetry last admission. He has a history of alcohol abuse and cardiomyopathy appears related to previous alcohol abuse. Last echo 06/15 showed left ventricular EF 55-60%, small pericardial effusion, technically difficult however no significant valvular disease. Cardiology was consulted secondary elevated troponins. Blood work shows white blood cell count 10.0, hemoglobin 10.0, sodium 135, creatinine 0.3, AST 97, ALT 42, alk phos 190, troponin 0.05, 0.04, albumin 2.6. He denies any chest pain or pressure. Denies any significant shortness breath. REVIEW OF SYSTEMS At the time of my exam: CONSTITUTIONAL: Denies fever or chills. CARDIOVASCULAR: Denies chest pain, shortness of breath, orthopnea, PND or palpitations. RESPIRATORY: Denies cough. GASTROINTESTINAL: Denies abdominal pain, diarrhea, constipation, nausea or vomiting. MUSCULOSKELETAL: Denies myalgias. NEUROLOGIC: Denies numbness, tingling or weakness. ENDOCRINE: Denies fatigue, weight change, polydipsia or polyurina. GENITOURINARY: Denies burning, hematuria or urgency with micturation. HEMATOLOGIC: Denies history of anemia or bleeding. PHYSICAL EXAMINATION Vital signs reviewed. CONSTITUTIONAL: No apparent distress, appears older than stated age, poor medical insight HEENT: Head is normocephalic. Pupils are equal, round. Sclerae anicteric. Mucous membranes of the mouth are moist. No JVD. No carotid bruit. CHEST EXAMINATION: Lungs are clear to auscultation. No chest wall tenderness is noted on palpation or with deep breathing. HEART EXAMINATION: Regular rate and rhythm. S1, S2 heard. No murmurs, gallops or rub. ABDOMEN: Soft, nontender. Positive bowel sounds. EXTREMITIES: 2+ peripheral pulses, no lower extremity edema and no calf tenderness. NEUROLOGIC EXAMINATION: Patient is awake, confused ASSESSMENT 1. Non-STEMI, question related type II mechanism related to the sepsis 2. Altered mental status 3. History of previous cardiomyopathy with recovered EF, last echo EF 55-60% 4. Small pericardial effusion as well as echo 5. Alcohol abuse 6. Protein calorie malnutrition 7. Recent sepsis with cholecystectomy PLAN Patient with mildly elevated troponins possibly related to sepsis versus other. Not having a significant angina-type symptoms. We will recheck limited 2-D echo to further evaluate. Additionally check a d-dimer and if elevated we will perform CTA given sinus tachycardia and recent hospitalization. Past Medical History Past Medical History: Heart Failure, COPD, GERD/Reflux, Hyperlipidemia, Liver Disease, Memory Impairment, Myocardial Infarction ([place]), Respiratory Disorder Last Myocardial Infarction Date:: . History of Any Multi-Drug Resistant Organisms: Unobtainable Past Surgical History: Cholecystectomy Past Anesthesia/Blood Transfusion Reactions: Unable to Obtain Past Psychological History: Unable to Obtain Smoking Status: Former smoker Past Alcohol Use History: Heavy - Past Family History Mother Family Medical History: Unable to Obtain Father Family Medical History: Unable to Obtain Medications and Allergies Home Medications Medication Instructions Recorded Confirmed Type Amoxic-Pot Clav 875-125Mg 1 tab PO BID@0900,2100 06/06/23 06/20/23 History [Augmentin 875-125] Atorvastatin [Lipitor] 40 mg PO HS@209906/06/23 06/20/23 History Budesonide [Pulmicort] 0.5 mg INHALATION RT-BID@0900,2100 06/06/23 06/20/23 History Folic Acid 1 mg PO DAILY@0900 06/06/23 06/20/23 History Lactose-Reduced Food [Ensure Plus] 1 can PO TID@0900,1300,2100 06/06/23 06/20/23 History Lactulose 20 gm PO BID@0900,2100 06/06/23 06/20/23 History Midodrine [ProAmatine] 5 mg PO TID@0900,1300,1800 06/06/23 06/20/23 History Mirtazapine 7.5 mg PO DAILY@1700 06/06/23 06/20/23 History Multivitamins, Thera [Multivitamin 1 tab PO DAILY@0900 06/06/23 06/20/23 History (formulary)] Omeprazole [PriLOSEC] 20 mg PO DAILY@0800 06/06/23 06/20/23 History Thiamine [Vitamin B-1] 100 mg PO DAILY@0900 06/06/23 06/20/23 History Acetaminophen Tab [Tylenol] 650 mg PO Q6HR PRN tab 06/16/23 06/20/23 Rx Divalproex [Depakote] 250 mg PO DAILY@0900 06/20/23 06/20/23 History Enoxaparin [Lovenox] 40 mg SQ DAILY@0900 06/20/23 06/20/23 History Fluconazole [Diflucan] 100 mg PO DAILY@0900 06/20/23 06/20/23 History Furosemide [Lasix] 20 mg PO DAILY@0900 06/20/23 06/20/23 History HYDROcodone/APAP 5-325MG [[place] 1 tab PO Q6H PRN 06/20/23 06/20/23 History 5-325] Ipratropium-Albuterol Nebulize 3 ml INHALATION RT-QID@,,,06/20/23 06/20/23 History [Duoneb 0.5 mg-3 mg/3 ml Soln] Potassium Chloride ER [K-Dur 20] 20 meq PO DAILY@0900 06/20/23 06/20/23 History Tamsulosin [Flomax] 0.4 mg PO DAILY@0900 06/20/23 06/20/23 History Allergies Allergy/AdvReac Type Severity Reaction Status Date / Time No Known Allergies Allergy Verified 06/20/23 18:27 Physical Exam Vitals: Vital Signs Temp Pulse Pulse Resp BP BP Pulse Ox 06/21/23 11:57 88 16 06/21/23 11:54 98 06/21/23 11:51 88 16 06/21/23 11:20 84 16 97/66 98 06/21/23 07:50 101 H 16 94/53 93 L 06/21/23 03:11 98.4 F 117 H 20 108/71 97 06/20/23 22:20 99.7 F H 123 H 22 129/73 96 06/20/23 22:00 118 H 20 110/74 100 06/20/23 21:00 117 H 18 107/71 98 06/20/23 20:00 115 H 18 124/86 98 06/20/23 19:00 110 H 20 112/77 92 L 06/20/23 18:31 112 H 22 122/87 92 L 06/20/23 17:15 97.4 F L 113 H 18 110/72 94 L Intake and Output 06/20/23 06/21/23 06/21/23 22:59 06:59 14:59 Other: Voiding Method External Catheter External Catheter Weight 56.699 kg Results 06/20/23 17:55 06/20/23 17:55 Cardiac Enzymes 06/20/23 06/20/23 06/20/23 Range/Units 17:55 17:55 21:37 AST 97 H (17-59) U/L Troponin I 0.054 H* 0.047 H* (0.000-0.034) ng/mL Coagulation 06/20/23 Range/Units 18:33 PT 13.4 H (10.0-12.5) sec APTT 30.7 H (22.0-30.0) sec CBC 06/20/23 Range/Units 17:55 WBC 10.0 (3.8-10.6) k/uL RBC 3.39 L (4.30-5.90) m/uL Hgb 10.0 L (13.0-17.5) gm/dL Hct 30.5 L (39.0-53.0) % Plt Count 365 (150-450) k/uL Comprehensive Metabolic Panel 06/20/23 Range/Units 17:55 Sodium 135 L (137-145) mmol/L Potassium 3.8 (3.5-5.1) mmol/L Chloride 104 (98-107) mmol/L Carbon Dioxide 20 L (22-30) mmol/L BUN 11 (9-20) mg/dL Creatinine 0.31 L (0.66-1.25) mg/dL Glucose 110 H (74-99) mg/dL Calcium 8.2 L (8.4-10.2) mg/dL AST 97 H (17-59) U/L ALT 42 (4-49) U/L Alkaline Phosphatase 190 H (38-126) U/L Total Protein 5.7 L (6.3-8.2) g/dL Albumin 2.6 L (3.5-5.0) g/dL Current Medications Generic Name Dose Route Start Last Admin Trade Name Freq PRN Reason Stop Dose Admin Hydrocodone Bitart/Acetaminophen 1 each 06/21/23 09:27 Hydrocodone/Apap 5-325mg 1 Each Tab PO Q6H PRN Pain Albuterol/Ipratropium 3 ml 06/21/23 13:00 06/21/23 11:50 Ipratropium-Albuterol 3 Ml Neb INHALATION 3 ml RT-QID@09,13,17,21 [facility] Administration Amoxicillin/Clavulanate Potassium 1 each 06/21/23 21:00 Amoxic-Pot Clav 875-125mg 1 Each Tab PO BID@0900,2100 [facility] Protocol Atorvastatin Calcium 40 mg 06/21/23 21:00 Atorvastatin 40 Mg Tab PO HS@2100 [facility] Budesonide 0.5 mg 06/21/23 21:00 Budesonide 0.5 Mg/2 Ml Nebu INHALATION RT-BID@0900,2100 [facility] Divalproex Sodium 250 mg 06/22/23 09:00 Divalproex 250 Mg Tablet.Dr PO DAILY@0900 [facility] Folic Acid 1 mg 06/22/23 09:00 Folic Acid 1 Mg Tab PO DAILY@0900 [facility] Furosemide 20 mg 06/22/23 09:00 Furosemide 20 Mg Tab PO DAILY@0900 [facility] Hydromorphone HCl 0.5 mg 06/20/23 21:33 Hydromorphone 0.5 Mg/0.5 Ml Syringe IVP Q3HR PRN Moderate Pain (Scale 4 to 6) Sodium Chloride 1,000 mls @ 50 mls/hr 06/20/23 21:45 06/20/23 21:46 Saline 0.9% IV 50 mls/hr .Q20H [facility] Administration Midodrine 5 mg 06/21/23 13:00 06/21/23 12:27 Midodrine 5 Mg Tab PO 5 mg TID@0900,1300,1800 [facility] Administration Mirtazapine 7.5 mg 06/21/23 17:00 Mirtazapine 15 Mg Tab PO DAILY@1700 [facility] Multivitamins 1 each 06/22/23 09:00 Multivitamins, Thera 1 Each Tab PO DAILY@0900 [facility] Naloxone HCl 0.2 mg 06/20/23 21:33 Naloxone 0.4 Mg/Ml 1 Ml Vial IV Q2M PRN Opioid Reversal Pantoprazole Sodium 40 mg 06/22/23 08:00 Pantoprazole 40 Mg Tablet PO DAILY@0800 [facility] Tamsulosin HCl 0.4 mg 06/22/23 09:00 Tamsulosin 0.4 Mg Cap.Er.24h PO DAILY@0900 [facility] Thiamine HCl 100 mg 06/22/23 09:00 Thiamine 100 Mg Tab PO DAILY@0900 [facility] Intake and Output 06/20/23 06/21/23 06/21/23 22:59 06:59 14:59 Other: Voiding Method External Catheter External Catheter Weight 56.699 kg 06/20/23 17:55 06/20/23 17:55
[2023-06-21] MEDS: SODIUM CHLORIDE 0.9% 1,000 ML IV SCH (17:07)
[2023-06-21] MEDS: MIRTAZAPINE 15 MG TAB PO SCH (17:07)
[2023-06-21] MEDS: HYDROcodone/APAP 5-325MG 1 EACH TAB PO PRN (17:10)
--- NOTE | 2023-06-21 18:07 | US ---
EXAMINATION TYPE: US carotid duplex BILAT DATE OF EXAM: 06/21/2023 Exam done portable COMPARISON: NONE CLINICAL INDICATION: Male, 63 years old with history of AMS, weakness, r/o CVA; Patient disoriented a nd uncooperative, exam started on the left side TECHNIQUE: Carotid duplex ultrasound examination. Indirect Doppler criteria was utilized. FINDINGS: EXAM MEASUREMENTS: RIGHT: Peak Systolic Velocity (PSV) cm/sec ----- Right CCA: 55.8 ----- Right ICA: 72.9 ----- Right ECA: 91.7 ICA/CCA ratio: 1.3 RIGHT: End Diastole cm/sec ----- Right CCA: 13.1 ----- Right ICA: 17.7 ----- Right ECA: 11.4 LEFT: Peak Systolic Velocity (PSV) cm/sec ----- Left CCA: 72.3 ----- Left ICA: 92.3 ----- Left ECA: 101.0 ICA/CCA ratio: 1.3 LEFT: End Diastole cm/sec ----- Left CCA: 16.4 ----- Left ICA: 31.3 ----- Left ECA: 17.7 VERTEBRALS (direction of flow): Right Vertebral: Antegrade Left Vertebral: Antegrade Rhythm: Normal No significant stenosis IMPRESSION: 1. No significant flow-limiting stenosis based on velocities. Criteria for Assigning % of Stenosis / Diameter reduction (Estimation based on the indirect measurements of the internal carotid artery velocities (ICA PSV). 1. Normal (no stenosis)=ICA PSV < 125 cm/s: ratio < 2.0: ICA EDV<40 cm/s. 2. Less than 50% stenosis=ICA PSV < 125 cm/s: ratio < 2.0: ICA EDV<40 cm/s. 3. 50 to 69% stenosis=ICA PSV of 125 to 230 cm/s: ration 2.0 ? 4.0: ICA EDV 40-100 cm/s. 4. Greater than 70% stenosis to near occlusion= ICA PSV > 230 cm/s: ratio > 4.0: ICA EDV > 100 cm/s. 5. Near occlusion= ICA PSV velocities may be low or undetectable: variable ratio and ICA EDV. 6. Total occlusion=unable to detect flow.
[2023-06-21] MEDS: AMOXIC-POT CLAV 875-125MG 1 EACH TAB PO SCH (19:25)
[2023-06-21] MEDS: ATORVASTATIN 40 MG TAB PO SCH (19:25)
[2023-06-21] MEDS: BUDESONIDE 0.5 MG/2 ML NEBU INHALATION SCH (21:37)
--- NOTE | 2023-06-21 22:03 | CT ---
CT CHEST FOR PULMONARY EMBOLISM. EXAMINATION TYPE: CT angio chest DATE OF EXAM: 06/21/2023 INDICATION: High d-dimer CT DLP: 232.6 mGycm, Automated exposure control for dose reduction was used. CONTRAST: Patient injected with 100 cc mL of Isovue 370. COMPARISON: None TECHNIQUE: CT of the chest is performed on a spiral scan at 2 mm thick sections. Study is performed with intravenous contrast timed for evaluation for pulmonary embolism. This will limit additional po rtions of the evaluation. 3-D MIP images reconstructed by the technologist are reviewed on the compu ter in the coronal and sagittal planes. FINDINGS: No persistent filling defects are evident to suggest an acute pulmonary embolism. No mediastinal or hilar adenopathy enlarged by CT criteria is evident. The ascending aorta diameter at the level of the main pulmonary artery is 3.1 cm. The main pulmonary artery diameter at the bifur cation is 3.0 cm. Small bilateral pleural effusions are present. Some adjacent compressive atelectasis at the left lung base. Edematous changes are within the lung love. Limited CT section through the upper abdomen are unremarkable. IMPRESSION: 1. Bilateral pleural effusions with adjacent compressive atelectasis. 2. Emphysematous changes. 3. No acute pulmonary embolism.
[2023-06-22] MEDS ORDERED: ZINC OXIDE PASTE (Z-GUARD) 1 APPLIC APPLIC TOPICAL PRN (01:33)
[2023-06-22] MEDS: FOLIC ACID 1 MG TAB PO SCH (07:55)
[2023-06-22] MEDS: TAMSULOSIN 0.4 MG CAP.ER.24H PO SCH (07:55)
[2023-06-22] MEDS: MULTIVITAMINS, THERA 1 EACH TAB PO SCH (07:55)
[2023-06-22] MEDS: AMOXIC-POT CLAV 875-125MG 1 EACH TAB PO SCH ×2 (07:55→21:29)
[2023-06-22] MEDS: PANTOPRAZOLE 40 MG TABLET PO SCH (07:55)
[2023-06-22] MEDS: MIDODRINE 5 MG TAB PO SCH ×3 (07:55→16:57)
[2023-06-22] MEDS: FUROSEMIDE 20 MG TAB PO SCH (07:55)
[2023-06-22] MEDS: DIVALPROEX 250 MG TABLET.DR PO SCH (07:55)
[2023-06-22] MEDS: THIAMINE 100 MG TAB PO SCH (07:55)
[2023-06-22] MEDS: BUDESONIDE 0.5 MG/2 ML NEBU INHALATION SCH ×2 (08:12→21:04)
[2023-06-22] MEDS: IPRATROPIUM-ALBUTEROL 3 ML NEB INHALATION SCH ×4 (08:12→21:04)
[2023-06-22] MEDS ORDERED: HALOPERIDOL LACTATE 5 MG/ML 1 ML VIAL IM STA (10:13)
--- NOTE | 2023-06-22 11:21 | P.PN ---
Subjective HISTORY OF PRESENT ILLNESS: Patient is pleasant 63-year-old male with history of alcohol abuse, COPD, hyperlipidemia, previous sepsis, cardiomyopathy, CHF. Patient states "my heart is fine "and appears to be poor historian. Much of history is supplied by chart. He presented from [facility] secondary to altered mental status. He had recent hospitalization 06/15 and had prior cholecystectomy. He follows in the office with Dr. Mcelroy. There was previously some concern of atrial fibrillation however none on telemetry last admission. He has a history of alcohol abuse and cardiomyopathy appears related to previous alcohol abuse. Last echo 06/15 showed left ventricular EF 55-60%, small pericardial effusion, technically difficult however no significant valvular disease. Cardiology was consulted secondary elevated troponins. Blood work shows white blood cell count 10.0, hemoglobin 10.0, sodium 135, creatinine 0.3, AST 97, ALT 42, alk phos 190, troponin 0.05, 0.04, albumin 2.6. He denies any chest pain or pressure. Denies any significant shortness breath. 06/22/2023 Patient examined this morning at the bedside. Patient remains confused this morning. He denies any chest pain or pressure. He denies any shortness of breath. Telemetry reveals sinus tachycardia with heart rate in the low 100s. PHYSICAL EXAM: VITAL SIGNS: Reviewed. GENERAL: Well-developed in no acute distress. NECK: Supple. No JVD or thyromegaly LUNGS: Respirations even and unlabored. Lungs essentially clear to auscultation bilaterally. HEART: Tachycardic. Regular rate and rhythm. S1 and S2 heard. EXTREMITIES: Normal range of motion. No clubbing or cyanosis. Peripheral pulses intact. No lower extremity edema ASSESSMENT: 1. Non-STEMI, likely type II mechanism 2. Altered mental status 3. History of previous cardiomyopathy with recovered EF, last echo EF 55-60% 4. Small pericardial effusion 5. Alcohol abuse 6. Protein calorie malnutrition 7. Recent sepsis with cholecystectomy PLAN: Obtain 2-D echo to assess cardiac structure and function Continue current cardiac medications Begin subcu heparin Continue telemetry monitoring Further recommendations pending patient's course Nurse practitioner note has been reviewed by physician. Signing provider agrees with the documented findings, assessment, and plan of care. Objective - Vital Signs Vital signs: Vital Signs Temp 98.3 F 06/22/23 07:48 Pulse 113 H 06/22/23 07:48 Resp 16 06/22/23 07:48 BP 120/65 06/22/23 07:48 Pulse Ox 95 06/22/23 07:48 FiO2 Intake & Output 06/21/23 06/22/23 06/22/23 18:59 06:59 18:59 Output Total 1000 Balance -1000 Output: Urine 1000 Other: Voiding Method External Catheter External Catheter - Labs CBC & Chem 7: 06/20/23 17:55 06/20/23 17:55 Labs: Abnormal Lab Results - Last 24 Hours (Table) 06/21/23 06/21/23 Range/Units 14:19 15:44 ESR 72 H (0-20) mm/Hr D-Dimer 1.48 H (<0.60) mg/L FEU
[2023-06-22] MEDS: HYDROcodone/APAP 5-325MG 1 EACH TAB PO PRN (11:44)
[2023-06-22] MEDS: HEPARIN SODIUM,PORCINE 5,000 UNIT/ML 1 ML VIAL SQ SCH ×2 (11:45→21:29)
[2023-06-22 12:54] LABS: HIV 2 AB Non-Reactive (Non-Reactive); HIV AB P24 Non-Reactive (Non-Reactive); HIV P24 AG Non-Reactive (Non-Reactive)
[2023-06-22] MEDS: SODIUM CHLORIDE 0.9% 1,000 ML IV SCH (12:57)
--- NOTE | 2023-06-22 13:35 | P.PN ---
Subjective Progress Note Date: 06/22/23 63-year-old male patient with known history of dilated cardiomyopathy,CHF, history of alcohol abuse, COPD, hyperlipidemia and recent admission for sepsis and underwent cholecystectomy who is a resident of [facility] brought to the ER for altered mental status. Patient was recently admitted to the hospital for sepsis, underwent cholecystectomy, was evaluated by cardiology and pulmonology during that admission as well. Patient was discharged on oral Lasix and Augmentin. At the facility there was concern that the patient was becoming more confused. Patient was having chills at the facility. No complain of chest pain or shortness of breath. No complain of cough. Denies any swelling of feet. No complain of nausea, vomiting abdominal pain. Because of this altered mental status, patient was brought to the ER Initial lab work done in the ER showed WBC 10, hemoglobin 10, platelet count 365, sodium 100, potassium 3.8, BUN 11, creatinine 0.31, glucose 110 troponin 0.054 UA negative for an infection EKG done in the ER heart rate of 110, no ST segment elevation seen, no T-wave inversion CT brain showed atrophy with chronic appearing periventricular white matter ischemic changes, no acute intracranial process Chest x-ray done in the ER showed improvement of right lower lobe infiltrate Patient admitted to medicine service 06/22. Patient seen and examined. D-dimer was elevated, CTA chest done was negative for PE, showed bilateral pleural effusion. Patient continues to be alert to self, not agitated. Answers questions REVIEW OF SYSTEMS: CONSTITUTIONAL: No fever, no malaise,. CARDIOVASCULAR: No chest pain, no palpitations, no syncope. PULMONARY: No shortness of breath, no cough, GASTROINTESTINAL: No diarrhea, no nausea, no vomiting, no abdominal pain. NEUROLOGICAL: No headaches, no weakness, PHYSICAL EXAMINATION: GENERAL: The patient is alert self, not in any acute distress. Well developed, well nourished. HEENT: Pupils are round and equally reacting to light. EOMI. No scleral icterus. No conjunctival pallor. Normocephalic, atraumatic. No pharyngeal erythema. No thyromegaly. CARDIOVASCULAR: S1 and S2 present. No murmurs, rubs, or gallops. PULMONARY: Chest is clear to auscultation, no wheezing or crackles. ABDOMEN: Soft, nontender, nondistended, normoactive bowel sounds. No palpable organomegaly. MUSCULOSKELETAL: No joint swelling or deformity. EXTREMITIES: No cyanosis, clubbing, or pedal edema. NEUROLOGICAL: Gross neurological examination did not reveal any focal deficits. Left wrist drop seen muscles strength 5 x 5 all other extremities SKIN: No rashes. Assessment and plan Acute metabolic encephalopathy Chronically elevated troponins Status post cholecystectomy Shortness of breath with bilateral pleural effusions History of dilated cardiomyopathy secondary to alcohol abuse, reserved EF of 55- 60% chronic obstructive pulmonary disease, acute exacerbation Memory impairment hyperlipidemia history History of alcohol abuse Moderate protein calorie malnutrition with a BMI of 14.1 Anemia of chronic disease History of myocardial infarction Monitor vital signs Monitor CBC Monitor CMP Continue telemetry monitoring Encourage use of incentive spirometer CTA chest negative for PE Ultrasound carotid negative for any stenosis Neurology evaluated The patient recommended doing EEG and ultrasound carotids Cardiology evaluated, ordered 2-D echo Labs and medication were reviewed.. Continue same treatment. Continue with symptomatic treatment. Resume home medication. Monitor labs and vitals. DVT and GI prophylaxis. Further recommendations as per clinical course of the patient Dictation was produced using [employer] dictation software. please excuse any grammatical, word or spelling errors. Objective - Vital Signs Vital signs: Vital Signs Temp 98.3 F 06/22/23 07:48 Pulse 113 H 06/22/23 07:48 Resp 16 06/22/23 07:48 BP 120/65 06/22/23 07:48 Pulse Ox 95 06/22/23 07:48 FiO2 Intake & Output 06/21/23 06/22/23 06/22/23 18:59 06:59 18:59 Intake Total 180 Output Total 1000 Balance -1000 180 Intake: Oral 180 Output: Urine 1000 Other: Voiding Method External Catheter External Catheter - Labs CBC & Chem 7: 06/20/23 17:55 06/20/23 17:55 Labs: Abnormal Lab Results - Last 24 Hours (Table) 06/21/23 06/21/23 Range/Units 14:19 15:44 ESR 72 H (0-20) mm/Hr D-Dimer 1.48 H (<0.60) mg/L FEU
[2023-06-22] MEDS: MIRTAZAPINE 15 MG TAB PO SCH (16:57)
--- NOTE | 2023-06-22 17:51 | P.PN ---
Subjective Progress Note Date: 06/22/23 Patient was seen for a follow-up. Patient is laying comfortably in the bed. Patient is watching [employer] TV show. He at first said does not know what was going on the TV, but then was able to identify the sitcom. Objective - Vital Signs Vital signs: Vital Signs Temp 97.4 F L 06/22/23 12:00 Pulse 105 H 06/22/23 12:00 Resp 18 06/22/23 12:00 BP 113/71 06/22/23 12:00 Pulse Ox 95 06/22/23 12:00 FiO2 Intake & Output 06/21/23 06/22/23 06/22/23 18:59 06:59 18:59 Intake Total 180 Output Total 1000 Balance -1000 180 Intake: Oral 180 Output: Urine 1000 Other: Voiding Method External Catheter External Catheter Urinal - Exam Patient's mentation is much better. He states it is August and the year is . He is still quite disoriented, slow mentation. Speech and language functions are normal. Face is symmetric. He moves all 4 activities equally. Patient is generalized weak. Examination is unchanged otherwise. - Labs CBC & Chem 7: 06/20/23 17:55 06/20/23 17:55 Labs: Abnormal Lab Results - Last 24 Hours (Table) 06/21/23 06/21/23 Range/Units 14:19 15:44 ESR 72 H (0-20) mm/Hr D-Dimer 1.48 H (<0.60) mg/L FEU Assessment and Plan Assessment: * Altered mental status, likely due to metabolic encephalopathy. Exact cause is uncertain. * Possible underlying cognitive impairment, possible dementia, probably vascular versus alcohol-related. * Chronic liver disease * Elevated cardiac enzymes * COPD * History of alcoholism * Tobacco use Plan: * Patient will undergo metabolic workup including as below * B12 708, folate >20, TSH 1.54, A1c 5.9, HIV nonreactive, ESR 72. Patient's B1, B6, MMA, serum lead pending. Continue thiamine, folic acid. * Carotid Doppler revealed no significant flow limiting stenosis. Antegrade flow in both vertebral arteries. * EEG was performed, which was abnormal due to background slowing of moderate degree. * 2-D echo from 06/13/2023 revealed technically difficult study with A. fib and RVR. LVEF 55-60%. Mitral and aortic valves not well visualized. No evidence of significant MS or . Left atrium is not well visualized. Patient was seen by cardiology on the last admission on 06/15/2023 and they ruled out atrial fibrillation in the echo report or the telemetry monitoring. Patient was not in any acute CHF. Cardiology on board as well for elevated cardiac enzymes. * CTA chest shows bilateral pleural effusions with adjacent compressive atelectasis. Emphysematous changes. No acute pulmonary embolism. * Telemetry monitoring showing sinus rhythm with sinus tachycardia in the teens. Continue aspirin. * PT OT, speech therapy. * DVT prophylaxis: Patient on heparin 5000 units subcu every 12 hours.
[2023-06-22] MEDS: ATORVASTATIN 40 MG TAB PO SCH (21:29)
--- NOTE | 2023-06-23 01:10 | EEG ---
ELECTROENCEPHALOGRAM REPORT PREAMBLE: This is a 63-year-old male, who was found down on the ground at [facility]. The patient is currently on potassium, Depakote, Lasix, [place], Dilaudid, ProAmatine, and Flomax. EEG FINDINGS: This is a 21-channel digital EEG recorded with video component, utilizing 10/20 international system with referential and bipolar montages. Background consists of moderately well-developed and regulated, predominantly 5 hertz moderate amplitude theta activity seen in bihemispheric region. Background does not seem to be reactive to eye opening or closing. Photic driving response was not seen. Different stages of sleep were not seen. No focal or generalized epileptiform activity was seen. IMPRESSION: This is an abnormal EEG due to background slowing of moderate degree. This is suggestive of generalized cerebral dysfunction as can be seen with toxic metabolic encephalopathy or related to diffuse structural brain abnormality. Clinical correlation is recommended. No epileptiform activity was seen. MMODL / IJN: [id number] / MTDD
[2023-06-23] MEDS: MIDODRINE 5 MG TAB PO SCH ×3 (08:55→16:32)
[2023-06-23] MEDS: DIVALPROEX 250 MG TABLET.DR PO SCH (08:55)
[2023-06-23] MEDS: FOLIC ACID 1 MG TAB PO SCH (08:55)
[2023-06-23] MEDS: PANTOPRAZOLE 40 MG TABLET PO SCH (08:55)
[2023-06-23] MEDS: TAMSULOSIN 0.4 MG CAP.ER.24H PO SCH (08:55)
[2023-06-23] MEDS: MULTIVITAMINS, THERA 1 EACH TAB PO SCH (08:55)
[2023-06-23] MEDS: THIAMINE 100 MG TAB PO SCH (08:55)
[2023-06-23] MEDS: FUROSEMIDE 20 MG TAB PO SCH (08:55)
[2023-06-23] MEDS: HEPARIN SODIUM,PORCINE 5,000 UNIT/ML 1 ML VIAL SQ SCH ×2 (08:56→20:53)
[2023-06-23] MEDS: AMOXIC-POT CLAV 875-125MG 1 EACH TAB PO SCH ×2 (08:56→20:53)
[2023-06-23] MEDS: IPRATROPIUM-ALBUTEROL 3 ML NEB INHALATION SCH ×4 (09:21→19:25)
[2023-06-23] MEDS: BUDESONIDE 0.5 MG/2 ML NEBU INHALATION SCH ×2 (09:21→19:25)
[2023-06-23] MEDS: SODIUM CHLORIDE 0.9% 1,000 ML IV SCH (10:18)
--- NOTE | 2023-06-23 11:30 | CA ---
Transthoracic Echo Report Name: Sebastien Stevens Age: 63 Gender: M : 1960 Exam Date: 06/23/2023 08:35 Exam Location: [facility] Ht (in): 66 Wt (lb): 125 Ordering Physician: Kyleigh Sow Attending/Referring Phys: [id number], Magi Watershed Manager Андрей Santos Procedure CPT: Indications: LV function, abnormal trop Cardiac Hx: Technical Quality: Fair Contrast 1: Total Dose (mL): Contrast 2: Total Dose (mL): MEASUREMENTS (Male / Female) Normal Values 2D ECHO LV Diastolic Diameter PLAX 3.6 cm 4.2 - 5.9 / 3.9 - 5.3 cm LV Systolic Diameter PLAX 2.7 cm IVS Diastolic Thickness 0.8 cm 0.6 - 1.0 / 0.6 - 0.9 cm LVPW Diastolic Thickness 0.9 cm 0.6 - 1.0 / 0.6 - 0.9 cm LV Relative Wall Thickness 0.5 RV Internal Dim ED PLAX 2.4 cm FINDINGS Left Ventricle Normal LV size and wall thickness.left ventricular ejection fraction is estimated at 55-60 %. Right Ventricle Right Atrium Left Atrium Mitral Valve Aortic Valve Tricuspid Valve Pulmonic Valve Pericardium No pericardial effusion. Aorta CONCLUSIONS Limited echo. Normal left ventricle size and systolic function Previewed by: Dr. Srini Alberts MD (Electronically Signed) Final Date: 23 June 2023 11:30
--- NOTE | 2023-06-23 11:32 | P.PN ---
Subjective HISTORY OF PRESENT ILLNESS: Patient is pleasant 63-year-old male with history of alcohol abuse, COPD, hyperlipidemia, previous sepsis, cardiomyopathy, CHF. Patient states "my heart is fine "and appears to be poor historian. Much of history is supplied by chart. He presented from care home secondary to altered mental status. He had recent hospitalization 06/15 and had prior cholecystectomy. He follows in the office with Dr. Mcelroy. There was previously some concern of atrial fibrillation however none on telemetry last admission. He has a history of alcohol abuse and cardiomyopathy appears related to previous alcohol abuse. Last echo 06/15 showed left ventricular EF 55-60%, small pericardial effusion, technically difficult however no significant valvular disease. Cardiology was consulted secondary elevated troponins. Blood work shows white blood cell count 10.0, hemoglobin 10.0, sodium 135, creatinine 0.3, AST 97, ALT 42, alk phos 190, troponin 0.05, 0.04, albumin 2.6. He denies any chest pain or pressure. Denies any significant shortness breath. 06/22/2023 Patient examined this morning at the bedside. Patient remains confused this morning. He denies any chest pain or pressure. He denies any shortness of breath. Telemetry reveals sinus tachycardia with heart rate in the low 100s. 06/23/2023 Patient examined this morning at the bedside. patient remains confused, although improving. He currently denies any chest pain or pressure. He denies shortness of breath. Telemetry reveals sinus tachycardia with a heart rate in the low 100s. Echocardiogram obtained revealing normal left ventricular size and systolic function. PHYSICAL EXAM: VITAL SIGNS: Reviewed. GENERAL: Well-developed in no acute distress. NECK: Supple. No JVD or thyromegaly LUNGS: Respirations even and unlabored. Lungs essentially clear to auscultation bilaterally. HEART: Tachycardic. Regular rate and rhythm. S1 and S2 heard. EXTREMITIES: Normal range of motion. No clubbing or cyanosis. Peripheral pulses intact. No lower extremity edema ASSESSMENT: 1. Non-STEMI, likely type II mechanism 2. Altered mental status 3. History of previous cardiomyopathy with recovered EF, last echo EF 55-60% 4. Small pericardial effusion 5. Alcohol abuse 6. Protein calorie malnutrition 7. Recent sepsis with cholecystectomy PLAN: Continue current cardiac medications Continue telemetry monitoring Patient is currently stable from a cardiac perspective We'll follow on an as-needed basis. Please call with questions or concerns. Nurse practitioner note has been reviewed by physician. Signing provider agrees with the documented findings, assessment, and plan of care. Objective - Vital Signs Vital signs: Vital Signs Temp 97.4 F L 06/23/23 08:01 Pulse 98 06/23/23 08:01 Resp 16 06/23/23 08:01 BP 103/62 06/23/23 08:01 Pulse Ox 94 L 06/23/23 08:01 FiO2 Intake & Output 06/22/23 06/23/23 06/23/23 18:59 06:59 18:59 Intake Total 360 Output Total 300 Balance 60 Intake: Oral 360 Output: Urine 300 Other: Voiding Method Urinal Urinal # Voids 1 - Labs CBC & Chem 7: 06/20/23 17:55 06/20/23 17:55
[2023-06-23 11:39] LABS: Lead, Blood 1.3 ug/dL (<5.0)
--- NOTE | 2023-06-23 13:18 | P.PN ---
Subjective Progress Note Date: 06/23/23 63-year-old male patient with known history of dilated cardiomyopathy,CHF, history of alcohol abuse, COPD, hyperlipidemia and recent admission for sepsis and underwent cholecystectomy who is a [facility] brought to the ER for altered mental status. Patient was recently admitted to the hospital for sepsis, underwent cholecystectomy, was evaluated by cardiology and pulmonology during that admission as well. Patient was discharged on oral Lasix and Augmentin. At the facility there was concern that the patient was becoming more confused. Patient was having chills at the facility. No complain of chest pain or shortness of breath. No complain of cough. Denies any swelling of feet. No complain of nausea, vomiting abdominal pain. Because of this altered mental status, patient was brought to the ER Initial lab work done in the ER showed WBC 10, hemoglobin 10, platelet count 365, sodium 100, potassium 3.8, BUN 11, creatinine 0.31, glucose 110 troponin 0.054 UA negative for an infection EKG done in the ER heart rate of 110, no ST segment elevation seen, no T-wave inversion CT brain showed atrophy with chronic appearing periventricular white matter ischemic changes, no acute intracranial process Chest x-ray done in the ER showed improvement of right lower lobe infiltrate Patient admitted to medicine service 06/22. Patient seen and examined. D-dimer was elevated, CTA chest done was negative for PE, showed bilateral pleural effusion. Patient continues to be alert to self, not agitated. Answers questions 06/23. Patient seen and examined. No acute issues overnight. Denies any pain. Denies any weakness of any extremity. REVIEW OF SYSTEMS: CONSTITUTIONAL: No fever, no malaise,. CARDIOVASCULAR: No chest pain, no palpitations, no syncope. PULMONARY: No shortness of breath, no cough, GASTROINTESTINAL: No diarrhea, no nausea, no vomiting, no abdominal pain. NEUROLOGICAL: No headaches, no weakness, PHYSICAL EXAMINATION: GENERAL: The patient is alert self, not in any acute distress. Well developed, well nourished. HEENT: Pupils are round and equally reacting to light. EOMI. No scleral icterus. No conjunctival pallor. Normocephalic, atraumatic. No pharyngeal erythema. No thyromegaly. CARDIOVASCULAR: S1 and S2 present. No murmurs, rubs, or gallops. PULMONARY: Chest is clear to auscultation, no wheezing or crackles. ABDOMEN: Soft, nontender, nondistended, normoactive bowel sounds. No palpable organomegaly. MUSCULOSKELETAL: No joint swelling or deformity. EXTREMITIES: No cyanosis, clubbing, or pedal edema. NEUROLOGICAL: Gross neurological examination did not reveal any focal deficits. Left wrist drop seen muscles strength 5 x 5 all other extremities SKIN: No rashes. Assessment and plan Acute metabolic encephalopathy Chronically elevated troponins Status post cholecystectomy Shortness of breath with bilateral pleural effusions History of dilated cardiomyopathy secondary to alcohol abuse, reserved EF of 55- 60% chronic obstructive pulmonary disease, acute exacerbation Memory impairment hyperlipidemia history History of alcohol abuse Moderate protein calorie malnutrition with a BMI of 14.1 Anemia of chronic disease History of myocardial infarction Monitor vital signs Monitor CBC Monitor CMP Continue telemetry monitoring Encourage use of incentive spirometer CTA chest negative for PE Ultrasound carotid negative for any stenosis Neurology evaluated The patient recommended doing EEG and ultrasound carotids. EEG negative for seizure like activity Cardiology evaluated, echo done showed normal LV function Labs and medication were reviewed.. Continue same treatment. Continue with symptomatic treatment. Resume home medication. Monitor labs and vitals. DVT and GI prophylaxis. Further recommendations as per clinical course of the patient Dictation was produced using [employer] dictation software. please excuse any gra mmatical, word or spelling errors. Objective - Vital Signs Vital signs: Vital Signs Temp 97.4 F L 06/23/23 08:01 Pulse 112 H 06/23/23 12:00 Resp 16 06/23/23 12:00 BP 91/59 06/23/23 12:00 Pulse Ox 92 L 06/23/23 12:00 FiO2 Intake & Output 06/22/23 06/23/23 06/23/23 18:59 06:59 18:59 Intake Total 360 Output Total 300 325 Balance 60 -325 Intake: Oral 360 Output: Urine 300 325 Other: Voiding Method Urinal Urinal Urinal # Voids 1 2 - Labs CBC & Chem 7: 06/20/23 17:55 06/20/23 17:55
[2023-06-23] MEDS: MIRTAZAPINE 15 MG TAB PO SCH (16:32)
[2023-06-23] MEDS: ATORVASTATIN 40 MG TAB PO SCH (20:53)
[2023-06-24] MEDS: SODIUM CHLORIDE 0.9% 1,000 ML IV SCH (06:16)
[2023-06-24 07:15] LABS: Anisocytosis Slight; Basophils % (A) 0 %; Eosinophils # (A) 0.7 k/uL (0-0.7); Eosinophils % (A) 6 %; HCT 28.8 % (39.0-53.0); HGB 9.2 gm/dL (13.0-17.5); Hypochromasia Slight; Lymphocytes # (A) 1.4 k/uL (1.0-4.8); Lymphocytes % (A) 14 %; MCH 28.7 pg (25.0-35.0); MCHC 31.9 g/dL (31.0-37.0); MCV 89.9 fL (80.0-100.0); Mean Platelet Volume 7.4; Monocytes # (A) 0.6 k/uL (0-1.0); Monocytes % (A) 6 %; Neutrophils # (A) 7.3 k/uL (1.3-7.7); Neutrophils % (A) 71 %; Platelet Count 398 k/uL (150-450); RBC 3.21 m/uL (4.30-5.90); RDW 16.9 % (11.5-15.5); WBC 10.3 k/uL (3.8-10.6)
[2023-06-24 07:28] LABS: ALT 30 U/L (4-49); AST 66 U/L (17-59); African American GFR (CKD) >90 (>60 ml/min/1.73 sqM); Albumin 2.3 g/dL (3.5-5.0); Alkaline Phosphatase 148 U/L (38-126); Anion Gap 9 mmol/L; Blood Urea Nitrogen 6 mg/dL (9-20); Calcium 7.7 mg/dL (8.4-10.2); Carbon Dioxide 23 mmol/L (22-30); Chloride 105 mmol/L (98-107); Glucose 102 mg/dL (74-99); Non-African American GFR(CKD) >90 (>60 ml/min/1.73 sqM); Potassium 2.9 mmol/L (3.5-5.1); Sodium 137 mmol/L (137-145); Total Bilirubin 0.4 mg/dL (0.2-1.3); Total Protein 5.1 g/dL (6.3-8.2)
[2023-06-24] MEDS ORDERED: Potassium Replacement Protocol 1 EACH MISC MISCELLANE PRN (08:14)
[2023-06-24] MEDS: IPRATROPIUM-ALBUTEROL 3 ML NEB INHALATION SCH ×3 (08:36→21:25)
[2023-06-24] MEDS: BUDESONIDE 0.5 MG/2 ML NEBU INHALATION SCH ×2 (08:36→21:25)
[2023-06-24 08:51] LABS: Methylmalonic Acid <0.10 umol/L (<0.40)
[2023-06-24] MEDS: POTASSIUM CHLORIDE ER 20 MEQ TAB.ER PO SCH ×5 (09:18→20:14)
[2023-06-24] MEDS: THIAMINE 100 MG TAB PO SCH (09:18)
[2023-06-24] MEDS: MULTIVITAMINS, THERA 1 EACH TAB PO SCH (09:18)
[2023-06-24] MEDS: AMOXIC-POT CLAV 875-125MG 1 EACH TAB PO SCH ×2 (09:18→20:14)
[2023-06-24] MEDS: DIVALPROEX 250 MG TABLET.DR PO SCH (09:18)
[2023-06-24] MEDS: TAMSULOSIN 0.4 MG CAP.ER.24H PO SCH (09:18)
[2023-06-24] MEDS: PANTOPRAZOLE 40 MG TABLET PO SCH (09:18)
[2023-06-24] MEDS: FOLIC ACID 1 MG TAB PO SCH (09:18)
[2023-06-24] MEDS: FUROSEMIDE 20 MG TAB PO SCH (09:18)
[2023-06-24] MEDS: HEPARIN SODIUM,PORCINE 5,000 UNIT/ML 1 ML VIAL SQ SCH ×2 (09:19→20:14)
[2023-06-24] MEDS: MIDODRINE 5 MG TAB PO SCH ×3 (09:24→17:47)
--- NOTE | 2023-06-24 11:22 | P.PN ---
Subjective Progress Note Date: 06/23/23 Patient was seen for a follow-up. Patient is laying comfortably in the bed. Patient is sleeping at this time. He did not try to wake up. He tried multiple times. Objective - Vital Signs Vital signs: Vital Signs Temp 98.4 F 06/23/23 16:31 Pulse 111 H 06/23/23 16:31 Resp 16 06/23/23 16:31 BP 92/59 06/23/23 16:31 Pulse Ox 93 L 06/23/23 16:31 FiO2 Intake & Output 06/22/23 06/23/23 06/23/23 18:59 06:59 18:59 Intake Total 360 118 Output Total 300 325 Balance 60 -207 Intake: Oral 360 118 Output: Urine 300 325 Other: Voiding Method Urinal Urinal Urinal # Voids 1 3 - Exam Patient is asleep at this time. Tried to wake him up multiple times, but he would not wake up optimally to be examined. Detailed testing could not be performed. - Labs CBC & Chem 7: 06/24/23 06:30 06/24/23 06:30 Assessment and Plan Assessment: * Altered mental status, likely due to metabolic encephalopathy. Exact cause is uncertain. * Possible underlying cognitive impairment, possible dementia, probably vascular versus alcohol-related. * Chronic liver disease * Elevated cardiac enzymes, cardiology following * COPD * History of alcoholism * Tobacco use Plan: * Patient will undergo metabolic workup including as below * B12 708, folate >20, TSH 1.54, A1c 5.9, HIV nonreactive, ESR 72. Patient's B1, B6 still pending. MMA <0.10, serum lead 1.3 normal. Continue thiamine, folic acid. * Carotid Doppler revealed no significant flow limiting stenosis. Antegrade flow in both vertebral arteries. * EEG was performed, which was abnormal due to background slowing of moderate degree. * 2-D echo from 06/13/2023 revealed technically difficult study with A. fib and RVR. LVEF 55-60%. Mitral and aortic valves not well visualized. No evidence of significant MS or . Left atrium is not well visualized. Patient was seen by cardiology on the last admission on 06/15/2023 and they ruled out a trial fibrillation in the echo report or the telemetry monitoring. Patient was not in any acute CHF. Cardiology on board as well for elevated cardiac enzymes. * CTA chest shows bilateral pleural effusions with adjacent compressive atelectasis. Emphysematous changes. No acute pulmonary embolism. * Telemetry monitoring showing sinus rhythm with sinus tachycardia in the teens. Continue aspirin. * PT OT, speech therapy. * DVT prophylaxis: Patient on heparin 5000 units subcu every 12 hours.
[2023-06-24 11:35] LABS: Vit B1(Thiamine) 107 ug/L (38-122)
--- NOTE | 2023-06-24 12:03 | P.PN ---
Subjective Progress Note Date: 06/24/23 63-year-old male patient with known history of dilated cardiomyopathy,CHF, history of alcohol abuse, COPD, hyperlipidemia and recent admission for sepsis and underwent cholecystectomy [facility] ER for altered mental status. Patient was recently admitted to the hospital for sepsis, underwent cholecystectomy, was evaluated by cardiology and pulmonology during that admission as well. Patient was discharged on oral Lasix and Augmentin. At the facility there was concern that the patient was becoming more confused. Patient was having chills at the facility. No complain of chest pain or shortness of breath. No complain of cough. Denies any swelling of feet. No complain of nausea, vomiting abdominal pain. Because of this altered mental status, patient was brought to the ER Initial lab work done in the ER showed WBC 10, hemoglobin 10, platelet count 365, sodium 100, potassium 3.8, BUN 11, creatinine 0.31, glucose 110 troponin 0.054 UA negative for an infection EKG done in the ER heart rate of 110, no ST segment elevation seen, no T-wave inversion CT brain showed atrophy with chronic appearing periventricular white matter ischemic changes, no acute intracranial process Chest x-ray done in the ER showed improvement of right lower lobe infiltrate Patient admitted to medicine service 06/22. Patient seen and examined. D-dimer was elevated, CTA chest done was negative for PE, showed bilateral pleural effusion. Patient continues to be alert to self, not agitated. Answers questions 06/23. Patient seen and examined. No acute issues overnight. Denies any pain. Denies any weakness of any extremity. 06/24. Patient seen and examined., Potassium level this morning is 2.9, replacement ordered. We'll recheck potassium level this afternoon. Denies any diarrhea. Denies any nausea or vomiting REVIEW OF SYSTEMS: CONSTITUTIONAL: No fever, no malaise,. CARDIOVASCULAR: No chest pain, no palpitations, no syncope. PULMONARY: No shortness of breath, no cough, GASTROINTESTINAL: No diarrhea, no nausea, no vomiting, no abdominal pain. NEUROLOGICAL: No headaches, no weakness, PHYSICAL EXAMINATION: GENERAL: The patient is alert self, not in any acute distress. Well developed, well nourished. HEENT: Pupils are round and equally reacting to light. EOMI. No scleral icterus. No conjunctival pallor. Normocephalic, atraumatic. No pharyngeal erythema. No thyromegaly. CARDIOVASCULAR: S1 and S2 present. No murmurs, rubs, or gallops. PULMONARY: Chest is clear to auscultation, no wheezing or crackles. ABDOMEN: Soft, nontender, nondistended, normoactive bowel sounds. No palpable organomegaly. MUSCULOSKELETAL: No joint swelling or deformity. EXTREMITIES: No cyanosis, clubbing, or pedal edema. NEUROLOGICAL: Gross neurological examination did not reveal any focal deficits. Left wrist drop seen muscles strength 5 x 5 all other extremities SKIN: No rashes. Assessment and plan Acute metabolic encephalopathy Chronically elevated troponins Status post cholecystectomy Shortness of breath with bilateral pleural effusions History of dilated cardiomyopathy secondary to alcohol abuse, reserved EF of 55- 60% chronic obstructive pulmonary disease, acute exacerbation Memory impairment hyperlipidemia history History of alcohol abuse Moderate protein calorie malnutrition with a BMI of 14.1 Anemia of chronic disease History of myocardial infarction Monitor vital signs Monitor CBC Monitor CMP Continue telemetry monitoring Encourage use of incentive spirometer Potassium is 2.9, replacement ordered CTA chest negative for PE Ultrasound carotid negative for any stenosis Neurology evaluated The patient recommended doing EEG and ultrasound carotids. EEG negative for seizure like activity Cardiology evaluated, echo done showed normal LV function Labs and medication were reviewed.. Continue same treatment. Continue with symptomatic treatment. Resume home medication. Monitor labs and vitals. DVT and GI prophylaxis. Further recommendations as per clinical course of the patient Dictation was produced using [employer] dictation software. please excuse any grammatical, word or spelling errors. Objective - Vital Signs Vital signs: Vital Signs Temp 98.6 F 06/24/23 04:00 Pulse 116 H 06/24/23 04:00 Resp 16 06/24/23 04:00 BP 97/59 06/24/23 04:00 Pulse Ox 91 L 06/24/23 04:00 FiO2 Intake & Output 06/23/23 06/24/23 06/24/23 18:59 06:59 18:59 Intake Total 118 0 180 Output Total 325 Balance -207 0 180 Intake: Oral 118 0 180 Output: Urine 325 Other: Voiding Method Urinal Urinal # Voids 3 1 - Labs CBC & Chem 7: 06/24/23 06:30 06/24/23 06:30 Labs: Abnormal Lab Results - Last 24 Hours (Table) 06/24/23 06/24/23 Range/Units 06:30 06:30 RBC 3.21 L (4.30-5.90) m/uL Hgb 9.2 L (13.0-17.5) gm/dL Hct 28.8 L (39.0-53.0) % RDW 16.9 H (11.5-15.5) % Potassium 2.9 L (3.5-5.1) mmol/L BUN 6 L (9-20) mg/dL Creatinine 0.29 L (0.66-1.25) mg/dL Glucose 102 H (74-99) mg/dL Calcium 7.7 L (8.4-10.2) mg/dL AST 66 H (17-59) U/L Alkaline Phosphatase 148 H (38-126) U/L Total Protein 5.1 L (6.3-8.2) g/dL Albumin 2.3 L (3.5-5.0) g/dL
[2023-06-24] MEDS: MIRTAZAPINE 15 MG TAB PO SCH (17:47)
[2023-06-24] MEDS: ATORVASTATIN 40 MG TAB PO SCH (20:14)
[2023-06-25 01:04] LABS: Glucose,Whole Blood 97 mg/dL (70-110)
[2023-06-25] MEDS: SODIUM CHLORIDE 0.9% 1,000 ML IV SCH (03:17)
[2023-06-25 08:04] VITALS: RESP 16
[2023-06-25] MEDS: TAMSULOSIN 0.4 MG CAP.ER.24H PO SCH (08:09)
[2023-06-25] MEDS: MIDODRINE 5 MG TAB PO SCH (08:09)
[2023-06-25] MEDS: PANTOPRAZOLE 40 MG TABLET PO SCH (08:09)
[2023-06-25] MEDS: AMOXIC-POT CLAV 875-125MG 1 EACH TAB PO SCH (08:09)
[2023-06-25] MEDS: MULTIVITAMINS, THERA 1 EACH TAB PO SCH (08:09)
[2023-06-25] MEDS: HEPARIN SODIUM,PORCINE 5,000 UNIT/ML 1 ML VIAL SQ SCH (08:09)
[2023-06-25] MEDS: FUROSEMIDE 20 MG TAB PO SCH (08:09)
[2023-06-25] MEDS: DIVALPROEX 250 MG TABLET.DR PO SCH (08:09)
[2023-06-25] MEDS: FOLIC ACID 1 MG TAB PO SCH (08:09)
[2023-06-25] MEDS: THIAMINE 100 MG TAB PO SCH (08:09)
[2023-06-25] MEDS: IPRATROPIUM-ALBUTEROL 3 ML NEB INHALATION SCH ×2 (08:36→12:01)
[2023-06-25] MEDS: BUDESONIDE 0.5 MG/2 ML NEBU INHALATION SCH (08:36)
--- NOTE | 2023-06-25 10:18 | P.DS ---
Providers Date of admission: 06/21/23 06:12 Expected date of discharge: 06/25/23 Attending physician: Gamaliel Arias MD Consults: 06/20/23 21:33 Consult Physician Urgent Consulting Provider: Mirna Lieberman Consult Reason/Comments: ams Do you want consulting provider notified?: Yes Primary care physician: [facility] Course: Discharge diagnoses; Acute metabolic encephalopathy Chronically elevated troponins Status post cholecystectomy Shortness of breath with bilateral pleural effusions History of dilated cardiomyopathy secondary to alcohol abuse, reserved EF of 55- 60% chronic obstructive pulmonary disease, acute exacerbation Memory impairment hyperlipidemia history History of alcohol abuse Moderate protein calorie malnutrition with a BMI of 14.1 Anemia of chronic disease History of myocardial infarction Hospital course; 63-year-old male patient with known history of dilated cardiomyopathy,CHF, history of alcohol abuse, COPD, hyperlipidemia and recent admission for sepsis and underwent cholecystectomy who is a resident of senior living facility brought to the ER for altered mental status. Patient was recently admitted to the hospital for sepsis, underwent cholecystectomy, was evaluated by cardiology and pulmonology during that admission as well. Patient was discharged on oral Lasix and Augmentin. At the facility there was concern that the patient was becoming more confused. Patient was having chills at the facility. No complain of chest pain or shortness of breath. No complain of cough. Denies any swelling of feet. No complain of nausea, vomiting abdominal pain. Because of this altered mental status, patient was brought to the ER Initial lab work done in the ER showed WBC 10, hemoglobin 10, platelet count 365, sodium 100, potassium 3.8, BUN 11, creatinine 0.31, glucose 110 troponin 0.054 UA negative for an infection EKG done in the ER heart rate of 110, no ST segment elevation seen, no T-wave inversion CT brain showed atrophy with chronic appearing periventricular white matter ischemic changes, no acute intracranial process Chest x-ray done in the ER showed improvement of right lower lobe infiltrate Patient admitted to medicine service 06/22. Patient seen and examined. D-dimer was elevated, CTA chest done was negative for PE, showed bilateral pleural effusion. Patient continues to be alert to self, not agitated. Answers questions 06/23. Patient seen and examined. No acute issues overnight. Denies any pain. Denies any weakness of any extremity. 06/24. Patient seen and examined., Potassium level this morning is 2.9, replacement ordered. We'll recheck potassium level this afternoon. Denies any diarrhea. Denies any nausea or vomiting 06/25. Patient seen and examined. Potassium level normalized. Cleared for discharge PHYSICAL EXAMINATION: GENERAL: The patient is alert self, not in any acute distress. Well developed, well nourished. HEENT: Pupils are round and equally reacting to light. EOMI. No scleral icterus. No conjunctival pallor. Normocephalic, atraumatic. No pharyngeal erythema. No thyromegaly. CARDIOVASCULAR: S1 and S2 present. No murmurs, rubs, or gallops. PULMONARY: Chest is clear to auscultation, no wheezing or crackles. ABDOMEN: Soft, nontender, nondistended, normoactive bowel sounds. No palpable organomegaly. MUSCULOSKELETAL: No joint swelling or deformity. EXTREMITIES: No cyanosis, clubbing, or pedal edema. NEUROLOGICAL: Gross neurological examination did not reveal any focal deficits. Left wrist drop seen muscles strength 5 x 5 all other extremities SKIN: No rashes. Dictation was produced using [employer] dictation software. please excuse any grammatical, word or spelling errors. Patient Condition at Discharge: Stable Plan - Discharge Summary Discharge Rx Participant: No New Discharge Prescriptions: Continue Thiamine [Vitamin B-1] 100 mg PO DAILY@0900 Multivitamins, Thera [Multivitamin (formulary)] 1 tab PO DAILY@0900 Atorvastatin [Lipitor] 40 mg PO HS@2100 Fluconazole [Diflucan] 100 mg PO DAILY@0900 Potassium Chloride ER [K-Dur 20] 20 meq PO DAILY@0900 Midodrine [ProAmatine] 5 mg PO TID@0900,1300,1800 Lactulose 20 gm PO BID@0900,2100 Lactose-Reduced Food [Ensure Plus] 1 can PO TID@0900,1300,2100 Budesonide [Pulmicort] 0.5 mg INHALATION RT-BID@0900,2100 Mirtazapine 7.5 mg PO DAILY@1700 Omeprazole [PriLOSEC] 20 mg PO DAILY@0800 Folic Acid 1 mg PO DAILY@0900 Acetaminophen Tab [Tylenol] 650 mg PO Q6HR PRN tab PRN Reason: Fever and/ or Mild Pain Divalproex [Depakote] 250 mg PO DAILY@0900 Tamsulosin [Flomax] 0.4 mg PO DAILY@0900 Furosemide [Lasix] 20 mg PO DAILY@0900 Enoxaparin [Lovenox] 40 mg SQ DAILY@0900 Ipratropium-Albuterol Nebulize [Duoneb 0.5 mg-3 mg/3 ml Soln] 3 ml INHALATION RT-QID@09,13,17,21 Changed HYDROcodone/APAP 5-325MG [Marne 5-325] 1 tab PO Q6H PRN 3 Days #12 tab PRN Reason: Pain Discontinued Amoxic-Pot Clav 875-125Mg [Augmentin 875-125] 1 tab PO BID@0900,2100 Discharge Medication List Atorvastatin [Lipitor] 40 mg PO HS@209906/06/23 [History] Budesonide [Pulmicort] 0.5 mg INHALATION RT-BID@0900,209906/06/23 [History] Folic Acid 1 mg PO DAILY@0906/06/23 [History] Lactose-Reduced Food [Ensure Plus] 1 can PO TID@0900,1300,209906/06/23 [History] Lactulose 20 gm PO BID@0900,209906/06/23 [History] Midodrine [ProAmatine] 5 mg PO TID@0900,1300,1800 06/06/23 [History] Mirtazapine 7.5 mg PO DAILY@1700 06/06/23 [History] Multivitamins, Thera [Multivitamin (formulary)] 1 tab PO DAILY@0906/06/23 [History] Omeprazole [PriLOSEC] 20 mg PO DAILY@0806/06/23 [History] Thiamine [Vitamin B-1] 100 mg PO DAILY@0906/06/23 [History] Acetaminophen Tab [Tylenol] 650 mg PO Q6HR PRN tab 06/16/23 [Rx] Divalproex [Depakote] 250 mg PO DAILY@0906/20/23 [History] Enoxaparin [Lovenox] 40 mg SQ DAILY@0906/20/23 [History] Fluconazole [Diflucan] 100 mg PO DAILY@0906/20/23 [History] Furosemide [Lasix] 20 mg PO DAILY@0906/20/23 [History] Ipratropium-Albuterol Nebulize [Duoneb 0.5 mg-3 mg/3 ml Soln] 3 ml INHALATION RT-QID@09,13,17,21 06/20/23 [History] Potassium Chloride ER [K-Dur 20] 20 meq PO DAILY@0900 06/20/23 [History] Tamsulosin [Flomax] 0.4 mg PO DAILY@0900 06/20/23 [History] HYDROcodone/APAP 5-325MG [Marne 5-325] 1 tab PO Q6H PRN 3 Days #12 tab 06/25/23 [Rx] Follow up Appointment(s)/Referral(s): Sandra Graves MD [Primary Care Provider] - 1-2 days Discharge Disposition: TRANSFER TO SNF/ECF
--- NOTE | 2023-06-25 10:54 | P.PN ---
Subjective Progress Note Date: 06/24/23 Patient was seen for a follow-up. Patient is laying comfortably in the bed. Patient is watching TV. Patient offers no complaints. Objective - Vital Signs Vital signs: Vital Signs Temp 97.5 F L 06/25/23 07:42 Pulse 93 06/25/23 07:42 Resp 16 06/25/23 07:42 BP 93/55 06/25/23 07:42 Pulse Ox 92 L 06/25/23 07:42 FiO2 Intake & Output 06/24/23 06/25/23 06/25/23 18:59 06:59 18:59 Intake Total 540 660 Output Total 200 Balance 540 460 Intake: Oral 540 660 Output: Urine 200 Other: Voiding Method Urinal Urinal # Voids 1 1 1 # Bowel Movements 1 - Exam Patient is alert and awake. Patient mumbles, appears still confused. On muscle strength testing, it appears patient is generalized weak. His wrists were hurting. He did not cooperate with examination, started becoming agitated, using foul language, and wanted me to leave. Examination aborted. - Labs CBC & Chem 7: 06/24/23 06:30 06/24/23 23:51 Assessment and Plan Assessment: * Altered mental status, likely due to metabolic encephalopathy. Exact cause is uncertain. * Possible underlying cognitive impairment, possible dementia, probably vascular versus alcohol-related. * Chronic liver disease * Elevated cardiac enzymes, cardiology following * COPD * History of alcoholism * Tobacco use Plan: * Patient will undergo metabolic workup including as below * B12 708, folate >20, TSH 1.54, A1c 5.9, HIV nonreactive, ESR 72, B1 107, B6 28. MMA <0.10, serum lead 1.3 normal. Continue thiamine, folic acid. * Carotid Doppler revealed no significant flow limiting stenosis. Antegrade flow in both vertebral arteries. * EEG was performed, which was abnormal due to background slowing of moderate degree. * 2-D echo from 06/13/2023 revealed technically difficult study with A. fib and RVR. LVEF 55-60%. Mitral and aortic valves not well visualized. No evidence of significant MS or . Left atrium is not well visualized. Patient was seen by cardiology on the last admission on 06/15/2023 and they ruled out atrial fibrillation in the echo report or the telemetry monitoring. Patient was not in any acute CHF. Cardiology on board as well for elevated cardiac enzymes. * CTA chest shows bilateral pleural effusions with adjacent compressive atelectasis. Emphysematous changes. No acute pulmonary embolism. * Telemetry monitoring showing sinus rhythm with sinus tachycardia in the teens. Continue aspirin. * PT OT, speech therapy. * DVT prophylaxis: Patient on heparin 5000 units subcu every 12 hours. * X-ray of the wrists. * Recommend patient follow up with neurologist outpatient.
--- NOTE | 2023-06-25 12:07 | XR ---
EXAMINATION TYPE: XR wrist complete BILATERAL DATE OF EXAM: 06/25/2023 COMPARISON: NONE HISTORY: Pain TECHNIQUE: Four views of each wrist submitted. FINDINGS: Left wrist: Diffuse osteopenia with mild radial carpal joint arthropathy. Chondrocalcinosis is faintl y seen near the region of the triangular fibrocartilage. There is moderate first carpal metacarpal fernanda int arthropathy and first MCP joint arthropathy. No erosive changes. Right wrist: Diffuse osteopenia with mild radial carpal joint arthropathy. Chondrocalcinosis is faint ly seen near the region of the triangular fibrocartilage. There is mild first carpal metacarpal joint arthropathy and first MCP joint arthropathy. No erosive changes. Chronic appearing deformity of the proximal phalanx fifth digit. The osseous structures are intact. The joint spaces are preserved and there is no acute fracture or dislocation. IMPRESSION: 1. No definite acute fracture or dislocation if symptoms persist, follow-up study in 7 to 10 days wo uld be suggested 2. Diffuse osteopenia with mild to moderate first carpal metacarpal joint arthropathy and first MCP j oint arthropathy bilaterally.
[2023-06-25 12:39] VITALS: BP 109/66; PULSE 91; TEMP 97.8
== END 2023-06-25 12:28 | DRG 70 ==
LOC: EEVIPCON 17:11 → EC 17:11 → 3SCARD 21:52 → OBSVTOIN 06-21 06:12 → 3SCARD 06-25 01:07
PROVIDERS: ADMIT Internal Medicine; ATTEND Internal Medicine
PROC: 4A10X4Z Monitoring of Central Nervous Electrical Activity, External Approach (ICD-10-PCS; principal; 2023-06-22)
DX: G93.41 Metabolic encephalopathy (principal); I21.A1 Myocardial infarction type 2; E44.0 Moderate protein-calorie malnutrition; I31.39 Other pericardial effusion (noninflammatory); I42.0 Dilated cardiomyopathy; I42.9 Cardiomyopathy, unspecified; J44.1 Chronic obstructive pulmonary disease with (acute) exacerbation; Z68.1 Body mass index [BMI] 19.9 or less, adult; I42.6 Alcoholic cardiomyopathy; G93.89 Other specified disorders of brain; R00.0 Tachycardia, unspecified; D63.8 Anemia in other chronic diseases classified elsewhere; I50.9 Heart failure, unspecified; I11.0 Hypertensive heart disease with heart failure; K76.9 Liver disease, unspecified; F01.50 Vascular dementia, unspecified severity, without behavioral disturbance, psychotic disturbance, mood disturbance, and anxiety; K21.9 Gastro-esophageal reflux disease without esophagitis; R74.01 Elevation of levels of liver transaminase levels; E78.5 Hyperlipidemia, unspecified; I25.2 Old myocardial infarction; R29.6 Repeated falls; Z91.81 History of falling; Z90.49 Acquired absence of other specified parts of digestive tract; Z87.891 Personal history of nicotine dependence; Z79.899 Other long term (current) drug therapy
CPT/HCPCS: 36415; 70450; 71046; 71275; 80053; 81003; 82140; 82150; 82607; 82746; 83036; 83605; 83655; 83690; 83735; 83921; 84100; 84132; 84207; 84425; 84443; 84484; 85025; 85379; 85610; 85652; 85730; 87390; 93005; 93308; 93880; 94640; 94760; 95816; 96360; 96361; 99285